=== PATIENT | female | born 2000 | race Caucasian/White ===

== ENCOUNTER 2021-10-09 12:04 | Emergency (ER) | payer BC, MEDICAID, SELFPAY ==
[2021-10-09 12:31] VITALS: BP 111/75; PULSE 75; RESP 16; TEMP 37.2; O2SAT 99; BMI 27.4
--- NOTE | 2021-10-09 12:39 | HMH.EDUTC ---
[place] Disposition Clinical Impression: Positive test Disposition: Home, Self-Care Condition on Discharge: Good Instructions: Common Discomforts and Bodily Changes During , Skin: Glowing, Stretching, Darkening, and More Additional Instructions: Follow up with OBGYN for further evaluation and examination Return if needed Straight to ER if any life threatening symptoms Referrals: Provider,MD Kaye [Primary Care Provider] - As needed Sedrick Butler MD [Staff Physician] - Aracelis Aaron MD [Staff Physician] - Time of Disposition: 13:22 Medical Decision Making - [place] Inquiry Pt receiving controlled substance: No [place] was queried for this patient: No Vital Signs: 10/09/21 12:31 Temperature 99.0 F Temperature Source Oral Pulse Rate [Right Radial] 75 Respiratory Rate 16 Blood Pressure [Right Arm] 111/75 Blood Pressure Mean [Right Arm] 87 Blood Pressure Source [Right Arm] Automatic Cuff Blood Pressure Position [Right Arm] Sitting 02 Sat by Pulse Oximetry 99 Oxygen Delivery Method Room Air - Lab Data Lab results reviewed: Yes: I reviewed the patient's lab results. Lab Results 10/09/21 12:21: [facility] Positive 10/09/21 12:38: Serum HCG, Qual Positive Orders (Tests/Meds): ORDERS Category Date Time Status HCG,Quantitative Stat Lab 10/09/21 12:38 Received [place] HPI - General Stated complaint: wants pregancy test Time Seen by Provider: 10/09/21 12:39 Mode of Arrival: Ambulatory Source of Information: Patient Limitations: No Limitations Description of Symptoms (Recalled from Triage Doc. by RN): pt requesting a test, states she has had a + positive home test HEENT Symptoms (Recalled from RN notes): No Resp Symptoms (Recalled from RN notes): No Skin Symptoms (Recalled from RN notes): No MS Symptoms (Recalled from RN notes): No Functional Status (Recalled from RN notes): n/a - History of Present Illness Provider Complaint: Patient states that she took a test at home and it was positive so she came here wanting to get a test and if the urine was positive to get a blood test to make sure Denies pain, denies cramping States that last period was last month - Related Data Allergies Allergy/AdvReac Type Severity Reaction Status Date / Time No Known Allergies Allergy Verified 10/09/21 12:59 - Worker's Comp Is this a Worker's Comp case?: No H History - Hepatitis A Screen Drug use history?: No High risk sexual behaviors?: No History of sexually transmitted infection?: No Currently employed?: No Childcare worker?: No Do you have indoor plumbing?: Yes Do you have electricity?: Yes Attestation statement:: This patient has been screened for Hepatitis A risk factors. I have reviewed the patient's past medical history: Yes ROS Obtained: Yes All systems reviewed & no additional complaints, Yes Systems reviewed as appropriate & no additional complaints - Constitutional Constitutional: Reports system reviewed and no additional complaints, except as docu, Denies body ache, Denies chills, Denies fever(s) - ENT Ears, Nose, Mouth, and Throat: Reports system reviewed and no additional complaints, except as docu - Cardiovascular Cardiovascular: Reports system reviewed and no additional complaints, except as docu - Respiratory Respiratory: Reports system reviewed and no additional complaints, except as docu - Gastrointestinal Gastrointestingal: Reports: system reviewed and no additional complaints, except as docu. Denies: abdominal pain - Genitourinary Female Genitourinary: Reports system reviewed and no additional complaints, except as docu, Reports absent period Physical Exam - General General appearance: alert, in no apparent distress - Respiratory Respiratory exam: Present: normal lung sounds bilaterally. Absent: respiratory distress - Cardiovascular Cardiovascular exam: Present: regular rat
[2021-10-09 12:40] LABS: UTC Pregnancy Test, Urine Positive (Negative)
[2021-10-09 13:13] LABS: HCG Qualitative, Serum Positive (Negative)
[2021-10-09 13:44] VITALS: BP 111/75; PULSE 75; RESP 16; TEMP 37.2; O2SAT 98
== END 2021-10-09 13:45 | disposition home or self-care (01) ==
PROVIDERS: Emergency Provider Nurse Practitioner
DX: Z32.01 Encounter for pregnancy test, result positive (principal)
CPT/HCPCS: 81025; 84702; 84703; 99212; G0463

== ENCOUNTER 2021-11-27 17:52 | Emergency (ER) | payer BC, MEDICAID, SELFPAY ==
[2021-11-27 17:54] VITALS: BP 126/74; PULSE 114; RESP 16; TEMP 36.9; O2SAT 98; BMI 25.8
--- NOTE | 2021-11-27 17:59 | HMH.EDGENADL ---
ED Disposition Clinical Impression: Chest congestion, Cough, Viral syndrome Disposition: Home, Self-Care Condition on Discharge: Good Additional Instructions: You have been evaluated for cough and chest congestion. This is likely related to a viral syndrome. Please continue to monitor your symptoms closely. Tylenol for aches and pains. Try home remedies like hot tea. 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 Return to the emergency department at once for any new or worsening symptoms, chest pain, difficulty breathing, other concerns. Referrals: Provider,Referral, [Primary Care Provider] - Forms: Work/School Release Time of Disposition: 19:39 - Critical Care Critical Care Time: No Attestation: On , the high probability of a clinically significant, sudden or life threatening deterioration of the following system(s) required my full and direct attention, intervention and personal management. The time I documented below is in addition to time spent performing reported procedures but includes the following listed in this critical care notation. Medical Decision Making - Medical Records Medical records reviewed: Yes: I reviewed the patient's medical records. - [place] Inquiry Pt receiving controlled substance: No Vital Signs: 11/27/21 17:54 11/27/21 18:15 11/27/21 19:00 Temperature 98.5 F Temperature Source Oral Pulse Rate 99 H 84 Pulse Rate [Right Radial] 114 H Respiratory Rate 16 Blood Pressure 126/74 112/58 L Blood Pressure [Right Arm] 126/74 Blood Pressure Mean [Right Arm] 91 Blood Pressure Source Blood Pressure Source [Right Arm] Automatic Cuff Blood Pressure Position [Right Arm] Sitting 02 Sat by Pulse Oximetry 98 98 99 Oxygen Delivery Method Room Air Room Air 11/27/21 19:15 11/27/21 19:45 11/27/21 19:55 Temperature 98.4 F Temperature Source Oral Pulse Rate 91 H 98 H 85 Pulse Rate [Right Radial] Respiratory Rate 17 Blood Pressure 126/57 L 129/77 129/77 Blood Pressure [Right Arm] Blood Pressure Mean [Right Arm] Blood Pressure Source Automatic Cuff Blood Pressure Source [Right Arm] Blood Pressure Position [Right Arm] 02 Sat by Pulse Oximetry 98 99 Oxygen Delivery Method Room Air Room Air - Lab Data Lab Results 11/27/21 18:25: SARS-CoV-2 (PCR) Not detected, Influenza A Untype (PCR) Not detected, Influenza Type B (PCR) Not detected Orders (Tests/Meds): ORDERS Category Date Time Status EKG Request [ECG Request by /Mello] Stat Y 11/27/21 19:11 Ordered - ECG Data Tracing #1 Sinus rhythm with ventricular rate of 87 bpm. QRS 83, QTc 389. No ST segment changes. No arrhythmia. Medical Decision Narrative: In summary this is a previously healthy female presenting to the emergency department with cough, chest congestion, sinus congestion. Patient clinically stable on arrival. Vital signs within normal limits. Will obtain rapid strep and COVID testing. States that her cough is quite severe. Concern for pneumonia. Chest x-ray obtained. EKG shows sinus rhythm. No evidence of pericarditis or myocarditis Chest x-ray shows no focal opacity or multifocal pneumonia COVID and influenza testing negative. On reassessment, patient says she is feeling much better. No chest pain or shortness of breath. Tachycardia has resolved. Patient counseled on conservative management of likely viral upper respiratory infection. Recommended Tylenol for aches and pains. Tea with honey. Recommended close PCP follow-up and [employer] follow-up. Given return precautions. Stable for discharge. General Adult HPI - General Stated complaint: 14 WK Preg cough congestion runny nose Time Seen by Provider: 11/27/21 18:00 Mode of Arrival: Ambulatory Source of Information: Patient Limitations: No Limitations - History of Present Illness HPI narrative: 21-year-old female presenting to the emergency department with
--- NOTE | 2021-11-27 18:04 | XR_ITS ---
PROCEDURE INFORMATION: Exam: XR Chest Exam date and time: 11/27/2021 6:11 PM Age: 21 years old Clinical indication: Patient HX: Patient is with cough and fever. Advised by Dr branch to shield patient and perform portable chest x-ray. ; Additional info: Cough, fever TECHNIQUE: Imaging protocol: XR of the chest. Views: 1 view. COMPARISON: No relevant prior studies available. FINDINGS: Lungs: Unremarkable. No consolidation. Pleural spaces: Unremarkable. No pleural effusion. No pneumothorax. Heart/Mediastinum: Unremarkable. No cardiomegaly. Bones/joints: Unremarkable. IMPRESSION: No acute findings.
[2021-11-27 18:15] VITALS: BP 126/74; PULSE 99; O2SAT 98
--- NOTE | 2021-11-27 18:28 | PC.NURSE ---
COVID swab sent to lab at this time
[2021-11-27 18:30] LABS: Coronavirus 19, PCR Not Detected (NotDetected); Influenza A, PCR Not Detected (NotDetected); Influenza B, PCR Not Detected (NotDetected)
[2021-11-27 19:00] VITALS: BP 112/58; PULSE 84; O2SAT 99
[2021-11-27 19:15] VITALS: BP 126/57; PULSE 91; O2SAT 98
--- NOTE | 2021-11-27 19:24 | ECG_ITS ---
APPROVED REPORT Exam: Resting ECG HR:87 bpm ECG Measurements Heart Rate 87 AXES SC 140 P 53 QRSd 83 QRS 83 QT 344 T 6 QTc 389 Conclusion SINUS RHYTHM NORMAL ECG UNCONFIRMED REPORT Electronically signed by : Pola Hutchison MD 11/28/2021 10:11:07
[2021-11-27 19:45] VITALS: BP 129/77; PULSE 98; O2SAT 99
[2021-11-27 19:55] VITALS: BP 129/77; PULSE 85; RESP 17; TEMP 36.9; O2SAT 99
== END 2021-11-27 19:58 | disposition home or self-care (01) ==
PROVIDERS: Emergency Provider Emergency Medicine
DX: J06.9 Acute upper respiratory infection, unspecified (principal); B34.9 Viral infection, unspecified; Z3A.14 14 weeks gestation of pregnancy
CPT/HCPCS: 71045; 93005; 99283; C9803; U0003; U0005

== ENCOUNTER → 2022-02-01 15:06 | Outpatient (CLI) | payer BC, MEDICAID, SELFPAY ==
[2022-02-01 16:22] LABS: Basophils # 0.2 K/mm3 (0-0.2); Basophils % 1.9 % (0.1-2.0); Eosinophils # 0.1 K/mm3 (0.0-0.4); Eosinophils % 0.5 % (0.1-12.0); Hematocrit 36.7 % (37.0-47.0); Hemoglobin 12.1 g/dL (12.2-16.2); Lymphocytes # 2.6 K/mm3 (0.7-4.5); Lymphocytes % 23.4 % (10-50); Mean Corpuscular Hemoglobin 31.3 pg (27.0-31.2); Mean Corpuscular Volume 94.7 fl (81-99); Monocytes # 0.6 K/mm3 (0.1-1.0); Neutrophils # 7.6 K/mm3 (1.8-7.8); Neutrophils % 69.2 % (37.0-80.0); Platelet Count 233 K/mm3 (142-424); Red Blood Count 3.88 M/mm3 (4.20-5.40); Red Cell Distribution Width 13.7 % (11.5-17.5)
[2022-02-03 11:02] LABS: HIV Screen 4th Generation wRfx Non Reactive (Non Reactive); Hepatitis B Surface Antigen Negative (Negative); Hepatitis C Antibody <0.1 s/co ratio (0.0-0.9); Rapid Plasma Reagin Ab Titer Non Reactive (NonRea<1:1)
== END ==
PROVIDERS: Visit Provider Obstetrics & Gynecology
DX: Z34.90 Encounter for supervision of normal pregnancy, unspecified, unspecified trimester (principal)
CPT/HCPCS: 36415; 85025; 86592; 86703; 86762; 86850; 87340; 87380; G0432

== ENCOUNTER → 2022-03-06 08:58 | Outpatient (CLI) | payer BC, MEDICAID, SELFPAY ==
[2022-03-06 09:49] LABS: Basophils # 0.1 K/mm3 (0-0.2); Basophils % 0.6 % (0.1-2.0); Eosinophils # 0.1 K/mm3 (0.0-0.4); Eosinophils % 0.9 % (0.1-12.0); Hematocrit 37.9 % (37.0-47.0); Hemoglobin 11.9 g/dL (12.2-16.2); Lymphocytes # 3.2 K/mm3 (0.7-4.5); Lymphocytes % 29.3 % (10-50); Mean Corpuscular HGB Conc 31.4 g/dL (31.8-35.4); Mean Corpuscular Hemoglobin 30.5 pg (27.0-31.2); Mean Platelet Volume 10.6 fl (7.4-10.4); Monocytes # 0.6 K/mm3 (0.1-1.0); Monocytes % 5.8 % (1.7-9.3); Neutrophils % 63.3 % (37.0-80.0); Platelet Count 199 K/mm3 (142-424); Red Blood Count 3.91 M/mm3 (4.20-5.40); Red Cell Distribution Width 13.5 % (11.5-17.5)
[2022-03-06 10:00] LABS: Glucose,Fasting 88 mg/dl (74-100)
[2022-03-06 13:15] LABS: Glucose 1 Hour 150 mg/dL (74-100)
== END ==
PROVIDERS: Visit Provider Obstetrics & Gynecology
DX: Z34.90 Encounter for supervision of normal pregnancy, unspecified, unspecified trimester (principal)
CPT/HCPCS: 36415; 82951; 85025

== ENCOUNTER → 2022-03-13 12:47 | Outpatient (CLI) | payer BC, MEDICAID, SELFPAY ==
--- NOTE | 2022-03-13 12:52 | US_ITS ---
FINAL REPORT CLINICAL HISTORY: 20 week anatomy scan FINDINGS: There is a single live intrauterine gestation. Presentation is breech. The cervix is closed and measures 4.4 cm. Placenta is posterior, high-grade 2. movement is noted. Heart rate is detected at 134 beats per minute. Three-vessel cord with satisfactory umbilical cord insertion. Four-chamber heart is noted. ABDOMEN: Both kidneys are unremarkable. Stomach is unremarkable. SPINE: No anomalies identified. AMNIOTIC FLUID: Appropriate amount. MEASUREMENTS: ULTRASOUND AGE: 29 weeks 2 days. GESTATION AGE: 29 weeks 4 days. ESTIMATED WEIGHT: 1352 g GROWTH PERCENTILE: 25 % BPD: 7.19 cm corresponding to 29 weeks 0 days. HC: 26.54 cm corresponding to 29 weeks 0 days. OFD: 9.54 cm corresponding to 29 weeks 1 day. AC: 24.94 cm corresponding to 29 weeks 2 days. FL: 5.59 cm corresponding to 29 weeks 3 days. CEREBELLUM: 3.35 cm corresponding to 30 weeks 5 days. HUMERUS: 5.07 cm corresponding to 29 weeks 5 days. HC/AC: 1.06 CI: 75% FL/BPD: 78% FL/AC: 22% IMPRESSION: Single living IUP with an ultrasound age of 29 weeks 2 days. Reviewed, Interpreted and Dictated by Roberto Carlos Chapman III, MD Transcribed by Melody Roth Authenticated and [facility]
== END ==
PROVIDERS: PCP Obstetrics & Gynecology; Visit Provider Obstetrics & Gynecology
DX: Z34.90 Encounter for supervision of normal pregnancy, unspecified, unspecified trimester (principal); Z3A.20 20 weeks gestation of pregnancy
CPT/HCPCS: 76811

== ENCOUNTER → 2022-03-21 06:11 | Outpatient (CLI) | payer BC, MEDICAID, SELFPAY ==
[2022-03-25 19:09] LABS: Neisseria gonorrhoeae, NAA Negative (Negative)
== END ==
PROVIDERS: Visit Provider Obstetrics & Gynecology
DX: Z34.90 Encounter for supervision of normal pregnancy, unspecified, unspecified trimester (principal)
CPT/HCPCS: 87491; 87591

== ENCOUNTER → 2022-04-12 10:39 | Outpatient (CLI) | payer MEDICAID, SELFPAY ==
--- NOTE | 2022-04-12 10:47 | US_ITS ---
FINAL REPORT CLINICAL HISTORY: sga FINDINGS: There is a single live intrauterine gestation. Presentation is cephalic. Placenta is fundal and grade 2. Cardiac activity is confirmed at 133 bpm. The fetus is active. Three-vessel cord with satisfactory umbilical cord insertion. Four-chamber heart is noted. brain and ventricles are unremarkable. Chest and diaphragm are unremarkable. ABDOMEN: Both kidneys are unremarkable. Stomach is unremarkable. SPINE: No anomalies identified. Both arms and legs noted. AMNIOTIC FLUID: Appropriate amount. MEASUREMENTS: ULTRASOUND AGE: 33 weeks 1 days. GESTATION AGE: 33 weeks 6 days. ESTIMATED WEIGHT: 2131 g GROWTH PERCENTILE: 24% BPD: 8.2 cm consistent with 33 weeks 0 days. OFD: 10.6 cm consistent with 33 weeks 5 days. HC: 29.8 cm consistent with 33 weeks 1 days. AC: 29.4 cm consistent with 33 weeks 3 days. FL: 6.3 cm consistent with 32 weeks 6 days. HC/AC: 1.01 CI: 77% FL/BPD: 77% FL/AC: 22% BPP: Breathin/2 Movement: 2/2 Tone: 2/2 Fluid volume: 2/2 BPP score: 8/8 S/D ratio: 2.58 IMPRESSION: Single living IUP with an ultrasound age of 33 weeks 1 day. Reviewed, Interpreted and Dictated by Roberto Carlos Chapman III, MD Transcribed by Benjamin Blair Authenticated and [facility]
== END ==
PROVIDERS: PCP Obstetrics & Gynecology; Visit Provider Obstetrics & Gynecology
DX: O36.5990 Maternal care for other known or suspected poor fetal growth, unspecified trimester, not applicable or unspecified (principal)
CPT/HCPCS: 76816; 76819; 76820

== ENCOUNTER 2022-04-20 22:02 | Outpatient (CLI) | payer MEDICAID, SELFPAY ==
[2022-04-20 22:16] VITALS: BMI 26.9
[2022-04-20 22:20] LABS: Microscopic, Urine URINE MICROSCOPIC (MICROSCOPIC)
[2022-04-20 22:30] LABS: Appearance,Urine CLEAR (Clear); Bilirubin,Urine Negative (Negative); Blood, Urine TRACE-I (Negative); Color,Urine YELLOW (Yellow); Glucose,Urine (UA) Negative (Negative); Ketones,Urine Negative (Negative); Leukocyte Esterase,Urine 2+ (Negative); Nitrate,Urine Negative (Negative); PH,Urine 6.5 (5.0-8.5); Protein,Urine Negative (Negative); Urobilinogen,Urine 0.2 EU/dl (0.2)
[2022-04-20 22:39] VITALS: BP 128/81; PULSE 98; RESP 17; TEMP 36.9; O2SAT 96; BMI 26.9
[2022-04-20 22:43] LABS: Barbiturates Screen,Urine Negative ng/ml (<200)
[2022-04-20 22:44] LABS: Amphetamine/Metha Screen,Urine Negative ng/ml (<1000); Benzodiazepines Screen,Urine Negative ng/ml (<200)
[2022-04-20 22:45] LABS: Cannabinoid Screen,Urine Negative ng/ml (<50)
[2022-04-20 22:46] LABS: Cocaine Screen,Urine Negative ng/ml (<300); Methadone Screen,Urine Negative ng/ml (<300)
[2022-04-20 22:47] LABS: Opiate Screen,Urine Negative ng/ml (<300)
[2022-04-20 22:48] LABS: Phencyclidine Screen,Urine Negative ng/ml (<25)
[2022-04-20 22:51] LABS: Fetal Membrane Rupture (Rapid) Negative (Negative)
[2022-04-20 22:59] LABS: Bacteria,Urine 1+ /lpf; RBC,Urine Occasional #/hpf (0-3); WBC,Urine 20-50 #/hpf (0-3)
== END 2022-04-21 00:30 | disposition home or self-care (01) ==
LOC: OBOUT 22:05 → OB 22:07
PROVIDERS: PCP Obstetrics & Gynecology; Visit Provider Nurse Practitioner Obstetrics & Gynecology
DX: O26.899 Other specified pregnancy related conditions, unspecified trimester (principal); Z3A.35 35 weeks gestation of pregnancy
CPT/HCPCS: 59025; 80305; 81001; 84112; 87086; 96365; 96367; G0463; J2505

== ENCOUNTER 2022-04-25 21:31 | Outpatient (CLI) | payer MEDICAID, SELFPAY ==
[2022-04-25 21:42] VITALS: BMI 27.6
[2022-04-25 22:04] LABS: Microscopic, Urine URINE MICROSCOPIC (MICROSCOPIC)
[2022-04-25 22:06] LABS: Appearance,Urine CLEAR (Clear); Bilirubin,Urine Negative (Negative); Blood, Urine TRACE-I (Negative); Color,Urine YELLOW (Yellow); Glucose,Urine (UA) Negative (Negative); Ketones,Urine Negative (Negative); Leukocyte Esterase,Urine 2+ (Negative); Nitrate,Urine Negative (Negative); Protein,Urine Negative (Negative); Specific Gravity, Urine <= 1.005 (1.005-1.030); Urobilinogen,Urine 0.2 EU/dl (0.2)
[2022-04-25 22:14] LABS: Fetal Membrane Rupture (Rapid) Negative (Negative)
[2022-04-25 22:22] LABS: Squamous Epithelial Cell,Urine 20-50 #/hpf (0-5); WBC,Urine 20-50 #/hpf (0-3)
[2022-04-25 22:23] LABS: Bacteria,Urine 3+ /lpf
[2022-04-25 22:25] LABS: Benzodiazepines Screen,Urine Negative ng/ml (<200)
[2022-04-25 22:26] LABS: Amphetamine/Metha Screen,Urine Negative ng/ml (<1000)
[2022-04-25 22:27] LABS: Barbiturates Screen,Urine Negative ng/ml (<200)
[2022-04-25 22:28] VITALS: BP 129/83; PULSE 91; RESP 18; TEMP 37; O2SAT 98; BMI 27.6
[2022-04-25 22:28] LABS: Cannabinoid Screen,Urine Negative ng/ml (<50); Methadone Screen,Urine Negative ng/ml (<300)
[2022-04-25 22:29] LABS: Cocaine Screen,Urine Negative ng/ml (<300)
[2022-04-25 22:30] LABS: Opiate Screen,Urine Negative ng/ml (<300)
[2022-04-25 22:31] LABS: Phencyclidine Screen,Urine Negative ng/ml (<25)
== END 2022-04-25 23:10 | disposition home or self-care (01) ==
LOC: OBOUT 21:32 → OB 21:33
PROVIDERS: Visit Provider Obstetrics & Gynecology
DX: O47.03 False labor before 37 completed weeks of gestation, third trimester (principal); Z3A.35 35 weeks gestation of pregnancy
CPT/HCPCS: 59025; 80305; 81001; 84112; 87086; 96365; G0463

== ENCOUNTER → 2022-04-30 16:54 | Outpatient (CLI) | payer MEDICAID, SELFPAY | PROVIDERS: Visit Provider Obstetrics & Gynecology | DX: Z34.90 Encounter for supervision of normal pregnancy, unspecified, unspecified trimester (principal) | CPT/HCPCS: 86403 ==

== ENCOUNTER 2022-05-02 21:42 | Inpatient (IN) | payer MEDICAID, SELFPAY ==
[2022-05-02 20:31] VITALS: BMI 27.8
[2022-05-02 20:55] LABS: Microscopic, Urine URINE MICROSCOPIC (MICROSCOPIC)
[2022-05-02 21:00] LABS: Appearance,Urine CLEAR (Clear); Bilirubin,Urine Negative (Negative); Blood, Urine 1+ (Negative); Color,Urine YELLOW (Yellow); Glucose,Urine (UA) Negative (Negative); Ketones,Urine Negative (Negative); Leukocyte Esterase,Urine 2+ (Negative); Nitrate,Urine Negative (Negative); PH,Urine 6.5 (5.0-8.5); Protein,Urine Negative (Negative); Specific Gravity, Urine <= 1.005 (1.005-1.030)
[2022-05-02 21:03] VITALS: BP 137/85; PULSE 111; RESP 17; TEMP 37.2; O2SAT 96; BMI 27.8
[2022-05-02 21:06] LABS: Fetal Membrane Rupture (Rapid) Negative (Negative)
[2022-05-02 21:11] LABS: Amphetamine/Metha Screen,Urine Negative ng/ml (<1000); Benzodiazepines Screen,Urine Negative ng/ml (<200)
[2022-05-02 21:12] LABS: Barbiturates Screen,Urine Negative ng/ml (<200)
[2022-05-02 21:13] LABS: Cannabinoid Screen,Urine Negative ng/ml (<50); Cocaine Screen,Urine Negative ng/ml (<300)
[2022-05-02 21:14] LABS: Methadone Screen,Urine Negative ng/ml (<300)
[2022-05-02 21:15] LABS: Opiate Screen,Urine Negative ng/ml (<300); Phencyclidine Screen,Urine Negative ng/ml (<25)
[2022-05-02 21:16] LABS: Bacteria,Urine 1+ /lpf; RBC,Urine Occasional #/hpf (0-3)
[2022-05-02 22:15] LABS: Coronavirus 19, PCR Not Detected (NotDetected); Influenza A, PCR Not Detected (NotDetected); Influenza B, PCR Not Detected (NotDetected)
[2022-05-02 22:18] LABS: Basophils # 0.1 K/mm3 (0-0.2); Basophils % 0.7 % (0.1-2.0); Eosinophils # 0.3 K/mm3 (0.0-0.4); Eosinophils % 1.7 % (0.1-12.0); Hematocrit 35.3 % (37.0-47.0); Hemoglobin 11.7 g/dL (12.2-16.2); Lymphocytes # 3.3 K/mm3 (0.7-4.5); Lymphocytes % 19.9 % (10-50); Mean Corpuscular HGB Conc 33.3 g/dL (31.8-35.4); Mean Corpuscular Hemoglobin 30.1 pg (27.0-31.2); Mean Corpuscular Volume 90.5 fl (81-99); Mean Platelet Volume 11.7 fl (7.4-10.4); Monocytes # 0.8 K/mm3 (0.1-1.0); Monocytes % 4.6 % (1.7-9.3); Neutrophils # 12.1 K/mm3 (1.8-7.8); Neutrophils % 73.2 % (37.0-80.0); Platelet Count 207 K/mm3 (142-424); Red Cell Distribution Width 13.5 % (11.5-17.5); White Blood Count 16.5 K/mm3 (4.8-10.8)
[2022-05-02 22:21] LABS: MANUAL DIFFERENTIAL MANUAL DIFFERENTIAL (MANUAL DIFF)
[2022-05-02 23:19] LABS: Lymphocytes % 34 % (10-50); Monocytes % 1 % (2-9); Neutrophils % 64 % (42-76); Total Cells Counted 100
[2022-05-02 23:20] LABS: Platelet Estimate Normal; RBC Morphology Normal
[2022-05-03] VITALS (19 sets, daily range): BP systolic 120–145; BP diastolic 60–100; PULSE 51–91; RESP 12–18; TEMP 36.3–36.9; O2SAT 98–100
--- NOTE | 2022-05-03 12:10 | P.PN_ITS ---
[facility] Social History Smoking Status: Current every day smoker alcohol intake: never substance use type: denies use current occupational status: unemployed Travel in the last 8 weeks: None [facility] Anesthesia Checklist Patient Identification Patient Identification: Arm Band Structural Data Admitted From: Home Planned Operative Procedure/s: C/S Consent for Planned Operative Procedure(s) Verified: Yes NPO Status Verified Time NPO: 00:00 Chart Verification Results Verified: CBC Additional verifications Patient : Yes Airway Assessment C-Spine Mobility Assessed: Yes TMJ Mobility Assessed: Yes Dentition: Good Dentition Neurological Assessment Level of Consciousness: Awake Hx Seizures: No Numbness or tingling in extremities: No Anesthesia Plan Anesthesia Risk discussed: Yes Anesthesia Plan: Verified ASA Class: II Anesthesia Type: Spinal
--- NOTE | 2022-05-03 13:46 | SUR.OPER ---
Notified Dr. Aaron of potential blood loss. 20g IV inserted to left forearm. No methergine per Dr. Aaron. Dr. Aaron states that uterus is firm and does not need methergine.
--- NOTE | 2022-05-03 13:59 | SUR.OPER ---
1343 2 units of PRBC's placed on hold per QBL protocol
--- NOTE | 2022-05-03 14:27 | P.PNANES_ITS ---
[facility] Anesthesia Record Part I Anesthesia Record I Intake, IV Amount: 2,000 Estimated blood loss (mL): 1,000 Urine output (mL): 300 Blood Pressure: 145/87 SaO2: 98 Pulse Rate: 71 Respiratory Rate: 14 Temperature: 97.4 F Patient is:: Awake and Stable Stable to PACU at:: 14:25
--- NOTE | 2022-05-03 15:23 | SUR.PHASEI ---
LATE ENTRY [address] Aaron at office. Dr. Aaron was busy at that time. Sarah took a message for Dr. Aaron that QBL was greater than 1500mL at that time and was asking if she requested any further interventions to be performed.
--- NOTE | 2022-05-03 15:38 | SUR.PHASEI ---
Detailed report called to Semaj Souza RN @ [phone]. Pt transported to floor by Semaj Brown RN and Marilee Centeno RN, left in care of Semaj Souza RN in stable condition. No call back received from Dr. Aaron's office @ this time.
--- NOTE | 2022-05-03 16:02 | EXP.HP ---
History of Present Illness *Admission Date: 05/02/22 *Reason for visit:: contractions *History of present illness: 21 yo care at [facility] [place] 05/25/22 Dating by 13 37 ultrasound labor with cervix changing from 3cm to 4cm She was admitted for observation with possible labor Fetus in breech position Progression on exam with amniotic membranes prolapsing through cervix, so she will be delivered immediately [facility] Social History Smoking Status: Current every day smoker alcohol intake: never substance use type: denies use current occupational status: unemployed Travel in the last 8 weeks: None Review of Systems Constitutional Constitutional: Reports system reviewed and no additional complaints, except as documented and Denies headache(s) ENT Ears, Nose, Mouth, and Throat: Denies headache(s) *Genitourinary Genitourinary: Denies abnormal vaginal bleeding Comments: + contractions *Neurologic Neurologic: Denies headache(s) and Denies other visual disturbances Meds Home Medications and Allergies Home Medications Medication Instructions Recorded Confirmed Type ferrous sulfate 325 mg PO DAILY Supplement 05/02/22 05/02/22 History vits no.126-ferrous fum 1 tab PO DAILY Supplement 05/02/22 05/02/22 History 28 mg iron-folic acid 800 mcg tablet (Classic ) New Prescriptions to Start Prescriptions: Allergies Allergy/AdvReac Type Severity Reaction Status Date / Time No Known Allergies Allergy Verified 04/30/22 11:06 Exam Data for Last 24 hours Vital signs and Labs for Last 24 Hours: Temp Pulse Resp BP Pulse Ox 97.6 F 69 16 140/83 99 05/03/22 14:55 05/03/22 14:55 05/03/22 14:55 05/03/22 14:55 05/03/22 14:55 Laboratory Results - last 24 hr 05/02/22 20:44: Urine Color Yellow, Urine Appearance Clear, Urine pH 6.5, Ur Specific Belle <= 1.005, Urine Protein Negative, Urine Glucose (UA) Negative, Urine Ketones Negative, Urine Blood 1+, Urine Nitrate Negative, Urine Bilirubin Negative, Urine Urobilinogen 1.0, Ur Leukocyte Esterase 2+ A, Urine RBC Occasional, Urine WBC 5-10, Ur Squamous Epith Cells 5-10, Urine Bacteria 1+ 05/02/22 20:44: Membrane Rupture Negative 05/02/22 20:44: Urine Opiates Screen Negative, Urine Methadone Screen Negative, Ur Barbituates Screen Negative, Ur Phencyclidine Scrn Negative, Ur Amphetamines Screen Negative, U Benzodiazepines Scrn Negative, Urine Cocaine Screen Negative, U Marijuana (THC) Screen Negative 05/02/22 22:00: WBC 16.5 H, RBC 3.90 L, Hgb 11.7 L, Hct 35.3 L, MCV 90.5, MCH 30.1, MCHC 33.3, RDW 13.5, Plt Count 207, MPV 11.7 H, Neut % (Auto) 73.2, Lymph % (Auto) 19.9, [place] % (Auto) 4.6, Eos % (Auto) 1.7, Baso % (Auto) 0.7, Neut # (Auto) 12.1 H, Lymph # (Auto) 3.3, [place] # (Auto) 0.8, Eos # (Auto) 0.3, Baso # (Auto) 0.1, Total Counted 100, Neutrophils % (Manual) 64, Lymphocytes % (Manual) 34, Monocytes % (Manual) 1 L, Basophils % (Manual) 1.0, Platelet Estimate Normal, RBC Morphology Normal 05/02/22 22:00: Blood Type O Positive, Antibody Screen Negative, Crossmatch (AHG) See Detail 05/02/22 22:06: SARS-CoV-2 (PCR) Not detected, Influenza A Untype (PCR) Not detected, Influenza Type B (PCR) Not detected I & O for Last 24 hours: Intake & Output 05/01/22 05/02/22 05/03/22 05/04/22 11:59 11:59 11:59 11:59 Intake Total 1999 Balance 1999 Weight 152 lb Constitutional Constitutional: no acute distress *Routine HEENT Exam Head: Present normocephalic Eye: Absent conjunctival icterus or scleral injection ENT: Present mucous membranes moist *Routine Neck Exam Neck: Present supple *Routine Respiratory Exam Respiratory: Present CTA bilaterally; Absent respiratory distress *Routine Cardiovascular Exam Cardiovascular: Present RRR *Routine Abdominal Exam Abdominal: Present soft; Absent tenderness or distended *Routine Rectal Exam Rectal:
[2022-05-03 16:31] LABS: Microscopic,Cath URINE MICROSCOPIC (MICROSCOPIC)
[2022-05-03 16:36] LABS: Appearance,Urine/Cath CLEAR (Clear); Bilirubin,Cath Negative (Negative); Blood, Urine/Cath TRACE-I (Negative); Color,Urine/Cath YELLOW (Yellow); Glucose,Urine/Cath (UA) Negative (Negative); Ketones,Urine/Cath Negative (Negative); Leukocyte Esterase,Cath Negative (Negative); Nitrate,Cath Negative (Negative); PH,Urine/Cath 7.5 (5.0-8.5); Protein,Urine/Cath Negative (Negative); Urobilinogen,Cath 0.2 EU/dl (0.2)
--- NOTE | 2022-05-03 16:41 | EXP.OP.NOTE ---
Date of procedure: 05/03/22 Pre-op Diagnosis:: 1. 36 6/7 weeks 2. Active labor 3. Breech presentation Post-op Diagnosis:: SAme Procedure performed:: Primary Low Transverse C Section Surgeon:: Aracelis Aaron MD FINANCE EFFECTIVENESS MANAGER:: Alessandra Howardguero Anesthesia: MAC and spinal Estimated blood loss (mL): 1,000 Operative findings:: Vigorous male , incomplete breech presentation apgars 9 (1 min) and 10 (5 min) Grossly normal appearing uterus, fallopian tubes and ovaries Operative note:: The patient was taken to the OR and spinal was administered without difficulty. She was prepped and draped in normal sterile fashion. A pfannenstiel skin incision was made with the scalpel and carried down to the fascia. Spinal anesthesia was not working sufficiently and MAC was used. The fascia was incised in the midline and sharply dissected off the rectus muscles. The muscles were in the midline and the peritoneum was entered sharply and extended bluntly. The Michael-O self retaining retractor was placed in the abdomen and a bladder flap was created. The uterus was incised in the lower uterine segment in a transverse fashion and extended bluntly. Amniotomy was performed and clear fluid noted. The breech was delivered in controlled fashion, medially rotating the upper extremities and with gentle downward traction on maxilla. The infant was vigorous at and handed to awaiting ad operations associate and nursing staff for evaluation after cord was clamped and cut. Cord blood was collected and a cord segment was preserved. The placenta was manually extracted and noted to be intact. The uterus was repaired with 0-vicryl in a running/locked fashion. Brisk bleeding was noted from the uterus and a second layer was placed for hemostasis. The peritoneum was closed with 2-0 vicryl in a running fashion. The fascia was closed with #1 vicryl in a running fashion. The subcutaneous fat was closed with 2-0 vicryl in an interrupted fashion. The skin was closed with bartolome. The patient tolerated the procedure well. Sponge, lap, needle and instrument counts were correct x 2. She was taken to PACU awake and in stable condition. Condition: stable Disposition: PACU Specimens:: Placenta, cord blood Complications:: None
[2022-05-03 17:58] LABS: RBC,Urine/Cath Occasional # /hpf (0-3)
[2022-05-04 03:50] VITALS: BP 139/74; PULSE 86; RESP 16; TEMP 36.9; O2SAT 97
[2022-05-04 05:32] LABS: Hematocrit 25.4 % (37.0-47.0); Hemoglobin 8.8 g/dL (12.2-16.2)
[2022-05-04 08:25] VITALS: BP 122/70; PULSE 74; RESP 16; TEMP 36.9; O2SAT 97
--- NOTE | 2022-05-04 13:18 | PC.NURSE ---
Addendum entered by Mikki Souza RN 05/05/22 12:47: Attempted to call for update on case status, no answer. Original Note: Per Care management recommendation, nurse contacted [place] central intake. report given to central head loft worker of infant named Cem Bush III, will be residing at [address] [place] [address] in [facility], with mother Nohemy Schneider. Nohemy had x1 positive urine drug screen on 02/14/2022, for [place], no other positive substances. She also had late care starting on 02/01/2022, at 23 weeks and 6 days of . Upon admission to hospital for delivery, Nohemy Schneider had a negative urine drug screen. Cem Bush III urine drug screen was negative upon admission. Web ID # received of [id number] nurse was instructed to call [facility] CPS for update in status.
--- NOTE | 2022-05-04 13:58 | EXP.ACUTE.PN ---
Subjective *Date: 05/04/22 *Time: 13:58 Interval history: POD #1 primary LTCS for breech presentation with active labor () She is doing well and has no unusual complaints She is tolerating a regular diet She is ambulating without difficulty but has not voided yet Catheter removal was delayed per anesthesia request after difficulty with spinal placement She is asymptomatic with boaoe-aw-iavshky anemia She will be given IV iron infusion prior to discharge Infant is doing well after delivery at 36 6/7 Admission Hgb was 11.7 and is now 8.8, which is consistent with intra-operative blood loss Medical Exam Vital signs and Labs for Last 24 Hours: Temp Pulse Resp BP Pulse Ox 98.4 F 74 16 122/70 97 05/04/22 08:25 05/04/22 08:25 05/04/22 08:25 05/04/22 08:25 05/04/22 08:25 Laboratory Results - last 24 hr 05/02/22 22:00: Blood Type O Positive, Antibody Screen Negative, Crossmatch (AHG) See Detail 05/03/22 12:46: Urine Color Yellow, Urine Appearance Clear, Urine pH 7.5, Ur Specific [place] 1.010, Urine Protein Negative, Urine Glucose (UA) Negative, Urine Ketones Negative, Urine Blood Trace-i, Urine Nitrate Negative, Urine Bilirubin Negative, Urine Urobilinogen 0.2, Ur Leukocyte Esterase Negative, Urine RBC Occasional, Urine WBC None, Ur Squamous Epith Cells None, Urine Bacteria None 05/04/22 05:25: Hgb 8.8 L, Hct 25.4 L I & O for Labs for Last 24 Hours: Intake & Output 05/02/22 05/03/22 05/04/22 05/05/22 11:59 11:59 11:59 11:59 Intake Total 1999 Balance 1999 Weight 152 lb Microbiology Reports for the Last 24 Hours: Microbiology 05/02/22 20:44 Urine,Clean Catch Urine Culture - Preliminary Comment:: No acute distress Comment:: breathing unlabored Comment:: Regular rate, normal peripheral pulses Comments:: abdomen soft, non-distended Mild tenderness Comment:: uterine fundus firm below umbilicus Comment:: 1+ edema bilateral lower extremities Comment:: Incision dry/intact Assessment and Plan *Assessment and plan (1) 36 weeks gestation of : Status: Acute Category: Medical Code(s): Z3A.36 - 36 weeks gestation of (2) labor in third trimester: Status: Acute Category: Medical Code(s): O60.03 - labor without delivery, third trimester (3) Breech presentation: Status: Acute Category: Medical Code(s): O32.1XX0 - Maternal care for breech presentation, not applicable or unspecified (4) Delivered by section: Status: Acute Category: Medical Code(s): Z38.01 - Single liveborn , delivered by (5) Anemia affecting : Status: Acute Category: Medical Code(s): O99.019 - Anemia complicating , unspecified trimester (6) Tobacco smoking complicating : Status: Acute Category: Medical Code(s): O99.330 - Smoking (tobacco) complicating , unspecified trimester (7) Acute blood loss anemia: Status: Acute Category: Medical Code(s): D62 - Acute posthemorrhagic anemia Plan Routine postop care Advance care as tolerated IV iron infusion followed by po ferrous sulfate Anticipate discharge home on POD #3
--- NOTE | 2022-05-05 11:36 | EXP.DC.SUM ---
General Admission date:: 05/02/22 Discharge date: 05/05/22 HPI HPI HPI: 21 yo care at [facility], [place] 05/25/22 Dating by 13 10/15 ultrasound labor with cervix changing from 3cm to 4cm She was admitted for observation with possible labor Fetus in breech position Progression on exam with amniotic membranes prolapsing through cervix, so she will be delivered immediately Hospital Course Hospital Course Hospital Course: Postop course uneventful She is requesting discharge on POD #2 She is in stable condition She is tolerating a regular diet, ambulating and voiding without difficulty Lochia is appropriate and she is asymptomatic with anemia She received IV iron infusion and will continue po ferrous sulfate after discharge She will return in 2 days for staple removal Exam Data for Last 24 hours Vital signs and Labs for Last 24 Hours: Temp Pulse Resp BP Pulse Ox 98.4 F 74 16 122/70 97 05/04/22 08:25 05/04/22 08:25 05/04/22 08:25 05/04/22 08:25 05/04/22 08:25 I & O for Last 24 hours: Intake & Output 05/02/22 05/03/22 05/04/22 05/05/22 11:59 11:59 11:59 11:59 Intake Total 1999 Balance 1999 Weight 152 lb Microbiology Reports for the Last 24 Hours: Microbiology 05/02/22 20:44 Urine,Clean Catch Urine Culture - Final Multiple organisms, suggests contamination. Constitutional Constitutional: no acute distress *Routine HEENT Exam Head: Present normocephalic Eye: Absent conjunctival icterus or scleral injection ENT: Present mucous membranes moist *Routine Neck Exam Neck: Present supple *Routine Respiratory Exam Respiratory: Present CTA bilaterally *Routine Cardiovascular Exam Cardiovascular: Present RRR *Routine Abdominal Exam Abdominal: Present soft; Absent tenderness or distended *Routine Rectal Exam Patient deferred: visual exam and digital exam *Routine Exam Patient deferred: external exam Comments: Fundus firm below umbilicus *Routine Extremities Exam Extremities: Present edema *Routine Skin Exam Skin: Present intact and dry Comments: Incision intact without erythema or purulent drainage *Routine Neurological Exam Neurological: Present alert and oriented X3 Routine Psychiatric Exam Psychiatric: Present normal affect; Absent depressed DS: Diagnosis Discharge Diagnosis (1) 36 weeks gestation of : Status: Acute (2) labor in third trimester: Status: Acute (3) Breech presentation: Status: Acute (4) Delivered by section: Status: Acute (5) Anemia affecting : Status: Acute (6) Tobacco smoking complicating : Status: Acute (7) Acute blood loss anemia: Status: Acute Meds Home Medications and Allergies Home Medications Medication Instructions Recorded Confirmed Type ferrous sulfate 325 mg PO DAILY Supplement 05/02/22 05/02/22 History vits no.126-ferrous fum 1 tab PO DAILY Supplement 05/02/22 05/02/22 History 28 mg iron-folic acid 800 mcg tablet (Classic ) ibuprofen 400 mg tablet 800 mg PO Q6HP PRN Mild To 05/05/22 Rx Moderate Pain #40 tabs oxycodone 5 mg tablet 5 mg PO Q6HP PRN Moderate Pain #24 05/05/22 Rx tabs New Prescriptions to Start Prescriptions: Aracelis Delong oxycodone Aracelis Aaron Allergies Allergy/AdvReac Type Severity Reaction Status Date / Time No Known Allergies Allergy Verified 04/30/22 11:06 Discharge Plan Disposition Patient Disposition: Home, Self-Care Discharge Order Discharge Orders: Discharge Order (Routine); Ordered 05/05/22 Ordered By: Aracelis Aaron Follow up Plan Follow up with: Aracelis Aaron MD [Primary Care Provider] - Enter time for follow up (call the office friday to setup an appointment for ) Prescriptions/Medication Reconciliation: New ibuprofen 400 m
--- NOTE | 2022-05-06 07:13 | P.PNANES_ITS ---
[facility] Anesthesia Record Part II Anesthesia Record Part II Discharge Time: 14:55 Destination: Surgical Day Care (OP Surgery) PACU nurse assessment reviewed?: Yes Patient Condition:: Good Anesthesia Complications:: None Swallowing reflex intact?: Yes Cyanosis?: No Blood Pressure: 140/83 Pulse Rate: 69 Temperature: 97.6 F Mental Status: Alert & Oriented Pain level:: 0 Nausea and/or vomitting:: None Intake, IV Amount: 0
[2022-05-06 07:15] VITALS: BP 140/83; PULSE 69; TEMP 36.4
--- NOTE | 2022-05-06 14:14 | CARE MANAGER ---
Per cabinet of health and family services, Web ID [id number], the report submitted does not meet acceptance criteria for further asessment and will not be assigned to a manager social media. OB notified that case was not picked up by child protective services. Baby is planned for discharge today.
== END 2022-05-05 14:10 | disposition home or self-care (01) | DRG 786 ==
LOC: OBOUT 21:43 → OB 21:48
PROVIDERS: Admitting Provider Obstetrics & Gynecology; PCP Obstetrics & Gynecology; Visit Provider Obstetrics & Gynecology
PROC: 10D00Z1 Extraction of Products of Conception, Low, Open Approach (ICD-10-PCS; CPT 59514; principal; 2022-05-03 12:15)
DX: O32.1XX0 Maternal care for breech presentation, not applicable or unspecified (principal); O60.23X0 Term delivery with preterm labor, third trimester, not applicable or unspecified; Z37.0 Single live birth; Z3A.36 36 weeks gestation of pregnancy; O99.019 Anemia complicating pregnancy, unspecified trimester; Z84.82 Family history of sudden infant death syndrome; F17.210 Nicotine dependence, cigarettes, uncomplicated; O99.330 Smoking (tobacco) complicating pregnancy, unspecified trimester; D64.9 Anemia, unspecified
CPT/HCPCS: 59514; 36415; 59025; 80305; 81001; 84112; 85007; 85014; 85018; 85025; 86403; 86850; 87086; 94761; C9290; C9803; G0283; J0595; J1756; U0003; U0005

== ENCOUNTER 2024-01-29 20:25 | Inpatient (IN) | payer SELFPAY ==
[2024-01-29 18:43] VITALS: BMI 27.8
[2024-01-29 18:44] VITALS: BP 136/75; PULSE 94; RESP 18; TEMP 37.3; O2SAT 97; BMI 27.8
[2024-01-29 18:57] LABS: Microscopic, Urine URINE MICROSCOPIC (MICROSCOPIC)
[2024-01-29] MEDS: LACTATED RINGERS 1000ML 1,000 ML 999 ML IV (18:59)
[2024-01-29 19:01] LABS: Bilirubin,Urine Negative (Negative); Blood, Urine Negative (Negative); Color,Urine YELLOW (Yellow); Glucose,Urine (UA) Negative (Negative); Ketones,Urine Negative (Negative); Leukocyte Esterase,Urine 2+ (Negative); Nitrate,Urine Negative (Negative); PH,Urine 6.5 (5.0-8.5); Protein,Urine Negative (Negative)
[2024-01-29 19:02] LABS: Appearance,Urine Slightly Cloudy (Clear)
[2024-01-29 19:12] LABS: Barbiturates Screen,Urine Negative ng/ml (<200); Benzodiazepines Screen,Urine Negative ng/ml (<200); Squamous Epithelial Cell,Urine Occasional #/hpf (0-5)
[2024-01-29 19:13] LABS: Amphetamine/Metha Screen,Urine Negative ng/ml (<1000)
[2024-01-29 19:14] LABS: Cannabinoid Screen,Urine Negative ng/ml (<50); Cocaine Screen,Urine Negative ng/ml (<300)
[2024-01-29 19:15] LABS: Methadone Screen,Urine Negative ng/ml (<300); Opiate Screen,Urine Negative ng/ml (<300)
[2024-01-29 19:16] LABS: Phencyclidine Screen,Urine Negative ng/ml (<25)
--- NOTE | 2024-01-29 19:40 | EXP.OB.APHP ---
OB - H&P: HPI Antepartum History of Present Illness Chief complaint: Lower abdominal pain, back pain History of present illness: Ms Marychuy Schneider is a 23 yo at 37w6d who presents to [facility] Labor and Delivery with complaint of lower abdominal pain and back pain. She is an unattached patient. She has been receiving care at [facility]. She recently moved to [facility] from [place]. She did not have enough gas money to get to [place]. She denies GDM and GHTN with this but states she had GHTN with her first . History of in 2018 and 2021. She then had a primary April 2023 secondary to active labor at 36w6 and breech presentation. She has two living children. She lost a baby to SIDS at 4 months of age. She denies past medical history. She states she would really like to deliver vaginally if possible. History of Present care: other (received care at [facility], awaiting records) Obstetrical complications: previous Labs Blood type: O (+) positive Rubella: unknown RPR/VDRL: unknown GBS status: unknown HBsAG: unknown [facility] Disclaimer: The information contained in this section may have been updated after the patient was seen, as this information can be updated by other users. Medical History (Updated 01/29/24 @ 19:56 by Jennifer Tamayo DO) 37 weeks gestation of Irregular contractions Delivered by section Surgical History (Updated 01/29/24 @ 19:56 by Jennifer Tamayo DO) History of Social History Smoking Status: Current every day smoker alcohol intake: never substance use type: denies use current occupational status: unemployed Travel in the last 8 weeks: None Review of Systems Review of Systems Review of systems:: pertinent systems reviewed and negative unless documented below *Gastrointestinal Gastrointestinal: Reports abdominal pain *Musculoskeletal Musculoskeletal: Reports back pain Meds Home Medications and Allergies Home Medications Medication Instructions Recorded Confirmed Type ferrous sulfate 325 mg PO DAILY Supplement 05/02/22 05/02/22 History vits no.126-ferrous fum 1 tab PO DAILY Supplement 05/02/22 05/02/22 History 28 mg iron-folic acid 800 mcg tablet (Classic ) ibuprofen 400 mg tablet 800 mg (2 x 400 mg) PO Q6HP PRN 05/05/22 Rx Mild To Moderate Pain #40 tabs oxycodone 5 mg tablet 5 mg PO Q6HP PRN Moderate Pain #24 05/05/22 Rx tabs New Prescriptions to Start Prescriptions: Allergies Allergy/AdvReac Type Severity Reaction Status Date / Time No Known Allergies Allergy Verified 04/30/22 11:06 OB - H&P: Exam Physical Exam Vital signs: Temp Pulse Resp BP Pulse Ox O2 Del Method 99.2 F 94 H 18 136/75 97 Room Air 01/29/24 18:44 01/29/24 18:44 01/29/24 18:44 01/29/24 18:44 01/29/24 18:44 01/29/24 18:44 Constitutional no acute distress and cooperative Routine HEENT Exam Head: Present normocephalic and atraumatic Eye: Absent conjunctivae pink ENT: Present mucous membranes moist Routine Neck Exam Present full ROM Routine Respiratory Exam Present CTA bilaterally and normal respiratory effort Routine Cardiovascular Exam Present RRR Routine Abdominal Exam Present soft (Gravid); Absent tenderness Routine Rectal Exam Patient deferred: visual exam Routine Exam External: Present normal urethra appearance; Absent erythema, tenderness, lesions or lacerations Routine Extremities Exam Present full ROM; Absent edema or calf tenderness Routine Neurological Exam Present alert, moving all extremities and normal speech Routine Psychiatric Exam Present normal affect and cooperative Detailed Labor and Delivery Exam Dilation (cm): 3 Effacement (%): 60 Cervix position: mid station: -2 Consistency: soft Membranes: intact Baseline heart rate: 120 monitor accelerations: Present monitor decelerations: None assisted variability: Moderate (11-25) Comments: [place]: irritability with occasional contraction OB - Results Labs Labs: Urine 01/29/24 Range/Units 18:15 Urine Color Yellow (Yellow) Urine Appearance Slightly cloudy (Clear) Urine pH 6.5 (5.0-8.5) Ur Specific [place] 1.010 (1.005-1.030) Urine Protein Negative (Negative) Urine Glucose (UA) Negative (Negative) OB - A/P Antepartum (1) 37 weeks gestation of : Status: Acute (2) Irregular contractions: Status: Acute (3) History of : Status: Acute x 1 Additional Plan Plan: expectant management Additional Information:: Admit to [facility] for observation SVE: /-2 NST reactive, irritability with occasional contraction on toco Discussed vs repeat . She desires to try for . Will continue to monitor baby and mom. If she progresses on her own will continue to watch closely and attempt . (Hx of 2 vaginal deliveries in 2018 and 2019 followed by in 2021 secondary to breech presentation) Discussed possibility of home tomorrow if cervix remains unchanged She agrees with plan Requested records from [facility]
[2024-01-29] MEDS: LACTATED RINGERS 1000ML 1,000 ML 80 ML IV (20:48)
[2024-01-29 20:59] LABS: Basophils # 0.1 K/mm3 (0-0.2); Basophils % 0.7 % (0.1-2.0); Eosinophils # 0.2 K/mm3 (0.0-0.4); Eosinophils % 1.8 % (0.1-12.0); Hematocrit 32.9 % (37.0-47.0); Hemoglobin 10.9 g/dL (12.2-16.2); Lymphocytes # 2.9 K/mm3 (0.7-4.5); Lymphocytes % 23.7 % (10-50); Mean Corpuscular HGB Conc 33.1 g/dL (31.8-35.4); Mean Corpuscular Hemoglobin 29.3 pg (27.0-31.2); Mean Corpuscular Volume 88.4 fl (81-99); Mean Platelet Volume 9.4 fl (7.4-10.4); Monocytes # 0.5 K/mm3 (0.1-1.0); Monocytes % 4.1 % (1.7-9.3); Neutrophils # 8.5 K/mm3 (1.8-7.8); Neutrophils % 69.7 % (37.0-80.0); Platelet Count 233 K/mm3 (142-424); Red Blood Count 3.72 M/mm3 (4.20-5.40); White Blood Count 12.2 K/mm3 (4.8-10.8)
[2024-01-30] MEDS: LACTATED RINGERS 1000ML 1,000 ML 80 ML IV (07:19)
[2024-01-30 07:21] VITALS: BP 110/64; PULSE 69; RESP 18; TEMP 36.7; O2SAT 98
--- NOTE | 2024-01-30 11:42 | P.PN_ITS ---
Subjective *Date: 01/30/24 *Time: 16:09 Interval history: Nohemy is a 23 yo who is being followed after presenting to L&D with painful contractions. She made progress from /-2 on arrival to /-2 this morning. When i saw the patient this morning she was not having any contractions. She states her primary OB did not discuss the risks of with her. Her BEAR is 02/14/24 per patient making her 37w6d today. Exam Data for Last 24 hours Vital signs and Labs for Last 24 Hours: Temp Pulse Resp BP Pulse Ox O2 Del Method 98.1 F 69 18 110/64 98 Room Air 01/30/24 07:21 01/30/24 07:21 01/30/24 07:21 01/30/24 07:21 01/30/24 07:21 01/30/24 07:21 Laboratory Results - last 24 hr 01/29/24 18:15: Urine Color Yellow, Urine Appearance Slightly cloudy, Urine pH 6.5, Ur Specific [place] 1.010, Urine Protein Negative, Urine Glucose (UA) Negative, Urine Ketones Negative, Urine Blood Negative, Urine Nitrate Negative, Urine Bilirubin Negative, Urine Urobilinogen 1.0, Ur Leukocyte Esterase 2+ A, Urine RBC None, Urine WBC 3-5, Ur Squamous Epith Cells Occasional, Urine Bacteria None, Urine Opiates Screen Negative, Urine Methadone Screen Negative, Ur Barbituates Screen Negative, Ur Phencyclidine Scrn Negative, Ur Amphetamines Screen Negative, U Benzodiazepines Scrn Negative, Urine Cocaine Screen Negative, U Marijuana (THC) Screen Negative 01/29/24 20:43: WBC 12.2 H, RBC 3.72 L, Hgb 10.9 L, Hct 32.9 L, MCV 88.4, MCH 29.3, MCHC 33.1, RDW 14.0, Plt Count 233, MPV 9.4, Neut % (Auto) 69.7, Lymph % (Auto) 23.7, [place] % (Auto) 4.1, Eos % (Auto) 1.8, Baso % (Auto) 0.7, Neut # (Auto) 8.5 H, Lymph # (Auto) 2.9, [place] # (Auto) 0.5, Eos # (Auto) 0.2, Baso # (Auto) 0.1, Blood Type O Positive, Antibody Screen Negative Temp Pulse Resp BP Pulse Ox 98.4 F 74 16 122/70 97 05/04/22 08:25 05/04/22 08:25 05/04/22 08:25 05/04/22 08:25 05/04/22 08:25 I & O for Last 24 hours: Intake & Output 01/27/24 01/28/24 01/29/24 01/30/24 23:59 23:59 23:59 23:59 Weight 152 lb Intake & Output 05/02/22 05/03/22 05/04/22 05/05/22 11:59 11:59 11:59 11:59 Intake Total 1999 Balance 1999 Weight 152 lb Microbiology Reports for the Last 24 Hours: Microbiology 05/02/22 20:44 Urine,Clean Catch Urine Culture - Final Multiple organisms, suggests contamination. Constitutional Constitutional: no acute distress *Routine HEENT Exam Head: Present normocephalic Eye: Absent conjunctival icterus or scleral injection ENT: Present mucous membranes moist *Routine Neck Exam Neck: Present supple *Routine Respiratory Exam Respiratory: Present CTA bilaterally *Routine Cardiovascular Exam Cardiovascular: Present RRR *Routine Abdominal Exam Abdominal: Present soft; Absent tenderness or distended *Routine Rectal Exam Patient deferred: visual exam and digital exam *Routine Exam Patient deferred: external exam Comments: Fundus firm below umbilicus *Routine Extremities Exam Extremities: Present edema *Routine Skin Exam Skin: Present intact and dry Comments: Incision intact without erythema or purulent drainage *Routine Neurological Exam Neurological: Present alert and oriented X3 Routine Psychiatric Exam Psychiatric: Present normal affect; Absent depressed Assessment and Plan *Assessment and plan (1) History of : Status: Acute Category: Surgical Code(s): Z98.891 - History of uterine scar from previous surgery (2) 37 weeks gestation of : Status: Acute Category: Medical Code(s): Z3A.37 - 37 weeks gestation of (3) Irregular contractions: Status: Acute Category: Medical Code(s): O47.9 - False labor, unspecified (4) Tobacco smoking complicating : Status: Acute Category: Medical Code(s): O99.330 - Smoking (tobacco) complicating , unspecified trimester (5) Family history of SIDS (sudden syndrome): Problem Comment: G1 , at 4 months Status: Acute Category: Medical Code(s): Z84.82 - Family history of sudden infant syndrome (6) Desires (vaginal after ) trial: Status: Acute Category: Surgical Code(s): O34.219 - Maternal care for unspecified type scar from previous delivery Plan I spent greater than 30 minutes extensively discussing the risk and benefits of a trial of labor after delivery. I discussed that without Pitocin her risk of uterine rupture was 0.5 to 1%. I discussed that if uterine rupture were to occur it could result in , hypoxic ischemic encephalopathy, cerebral palsy, maternal hemorrhage, and maternal . I discussed that we would follow her closely for uterine rupture with signs of heart rate abnormalities or loss of station. I discussed that if uterine rupture were to be suspected it would require a very emergent delivery where she could possibly be put to sleep and her support person would not be able to be in the room at that time. At this time we will continue to monitor her closely as she is only 37 completed weeks gestation. If she progresses on her own to active labor, 6 cm the patient is agreeable to an amniotomy for labor augmentation. We discussed the risk and benefits of Pitocin and the patient is agreeable to Pitocin augmentation if deemed necessary. At this time it appears that her uterine contractions have stopped and she remains in latent labor. Given the early term gestational age we will continue to monitor this closely and patient. When I reexamined the patient at lunchtime she was resting comfortably in bed, asleep. I discussed the game plan with her significant other that we would continue to monitor until the patient progressed past 6 cm independently. I did discuss the risk of a NICU stay with early term delivery. The partner voiced understanding.
[2024-01-31 08:13] VITALS: BP 120/57; PULSE 58; RESP 15; TEMP 36.6; O2SAT 98
--- NOTE | 2024-01-31 11:42 | EXP.DC.SUM ---
General Admission date:: 01/29/24 Discharge date: 01/31/24 HPI HPI HPI: Ms Marychuy Schneider is a 23 yo at 37w6d who presents to [facility] Labor and Delivery with complaint of lower abdominal pain and back pain. She is an unattached patient. She has been receiving care at [place]. She recently moved to [facility] from [place]. She did not have enough gas money to get to [place]. She denies GDM and GHTN with this but states she had GHTN with her first . History of in 2018 and 2021. She then had a primary April 2023 secondary to active labor at 36w6 and breech presentation. She has two living children. She lost a baby to SIDS at 4 months of age. She denies past medical history. She states she would really like to deliver vaginally if possible. History of Present care: other (received care at [facility], awaiting records) Obstetrical complications: previous Labs Blood type: O (+) positive Rubella: unknown RPR/VDRL: unknown GBS status: unknown HBsAG: unknown Hospital Course Hospital Course Hospital Course: Nohemy Schneider is a 23 yo who was admitted on 12/28/22 for painful irregular contractions. Over night she progressed to 5/60/-2 at 1AM on 12/30/23 she has not made any cervical change since that time and has not had any additional contractions. The patient desires discharge home and will follow up in the office on friday. Strict return precautions were reviewed. Pt voiced understanding of all discharge instructions Exam Data for Last 24 hours Vital signs and Labs for Last 24 Hours: Temp Pulse Resp BP Pulse Ox O2 Del Method 97.8 F 58 L 15 120/57 L 98 Room Air 01/31/24 08:13 01/31/24 08:13 01/31/24 08:13 01/31/24 08:13 01/31/24 08:13 01/31/24 08:13 Temp Pulse Resp BP Pulse Ox 98.4 F 74 16 122/70 97 05/04/22 08:25 05/04/22 08:25 05/04/22 08:25 05/04/22 08:25 05/04/22 08:25 I & O for Last 24 hours: Intake & Output 01/28/24 01/29/24 01/30/24 01/31/24 23:59 23:59 23:59 23:59 Weight 152 lb Intake & Output 05/02/22 05/03/22 05/04/22 05/05/22 11:59 11:59 11:59 11:59 Intake Total 1999 Balance 1999 Weight 152 lb Microbiology Reports for the Last 24 Hours: Microbiology 05/02/22 20:44 Urine,Clean Catch Urine Culture - Final Multiple organisms, suggests contamination. Constitutional Constitutional: no acute distress *Routine HEENT Exam Head: Present normocephalic Eye: Absent conjunctival icterus or scleral injection ENT: Present mucous membranes moist *Routine Neck Exam Neck: Present supple *Routine Respiratory Exam Respiratory: Present CTA bilaterally *Routine Cardiovascular Exam Cardiovascular: Present RRR *Routine Abdominal Exam Abdominal: Present soft; Absent tenderness or distended *Routine Rectal Exam Patient deferred: visual exam and digital exam *Routine Extremities Exam Extremities: Present edema *Routine Skin Exam Skin: Present intact and dry Comments: Incision intact without erythema or purulent drainage *Routine Neurological Exam Neurological: Present alert and oriented X3 Routine Psychiatric Exam Psychiatric: Present normal affect; Absent depressed DS: Diagnosis Discharge Diagnosis (1) History of : Status: Acute Code(s): Z98.891 - History of uterine scar from previous surgery (2) 37 weeks gestation of : Status: Acute Code(s): Z3A.37 - 37 weeks gestation of (3) Irregular contractions: Status: Acute Code(s): O47.9 - False labor, unspecified (4) Tobacco smoking complicating : Status: Acute Code(s): O99.330 - Smoking (tobacco) complicating , unspecified trimester (5) Family history of SIDS (sudden syndrome): Status: Acute Code(s): Z84.82 - Family history of sudden syndrome Problem details: G1 , at 4 months (6) Desires (vaginal after ) trial: Status: Acute Code(s): O34.219 - Maternal care for unspecified type scar from previous delivery Meds Home Medications and Allergies Home Medications Medication Instructions Recorded Confirmed Type ferrous sulfate 325 mg PO DAILY 05/02/22 01/30/24 History vits no.126-ferrous fum 1 tab PO DAILY 05/02/22 01/30/24 History 28 mg iron-folic acid 800 mcg tablet (Classic ) New Prescriptions to Start Prescriptions: Allergies Allergy/AdvReac Type Severity Reaction Status Date / Time No Known Allergies Allergy Verified 04/30/22 11:06 Discharge Plan Disposition Patient Disposition: Home, Self-Care Discharge Order Discharge Orders: Discharge Order (Routine); Ordered 01/31/24 Ordered By: Tari Perez Follow up Plan Follow up with: Tari Perez DO [Staff Physician] - 02/03/24 2:45 pm Prescriptions/Medication Reconciliation: Continued Classic 28 mg iron- 800 mcg tablet 1 tab PO DAILY ferrous sulfate 325 mg (65 mg iron) tablet,delayed release 325 mg (65 mg iron) 325 mg PO DAILY Problem Reconciliation Problems Reviewed?: Yes Patient Discharge Instructions ACTIVITY: Continue current activity DIET: regular diet Patient Instructions: How to Do Kick Counts, Antepartum Care Providers Primary Care Provider: Provider,Referral Admit Provider: Jennifer Tamayo Attending Provider: Jennifer Tamayo
== END 2024-01-31 12:27 | disposition home or self-care (01) | DRG 833 ==
LOC: OBOUT 20:27 → OB 20:27
PROVIDERS: Admitting Provider Obstetrics & Gynecology; Visit Provider Obstetrics & Gynecology
DX: O47.1 False labor at or after 37 completed weeks of gestation (principal); Z3A.37 37 weeks gestation of pregnancy; O99.333 Smoking (tobacco) complicating pregnancy, third trimester; O34.219 Maternal care for unspecified type scar from previous cesarean delivery
CPT/HCPCS: 36415; 59025; 80307; 81001; 85025; 86850; 87086; J7120

== ENCOUNTER 2024-02-10 03:51 | Inpatient (IN) | payer SELFPAY ==
[2024-02-10 04:02] VITALS: BMI 27.8
[2024-02-10 04:53] LABS: Microscopic, Urine URINE MICROSCOPIC (MICROSCOPIC)
[2024-02-10 04:54] VITALS: BP 138/67; PULSE 85; RESP 20; TEMP 36.7; O2SAT 98
[2024-02-10 04:55] LABS: Basophils # 0.1 K/mm3 (0-0.2); Basophils % 0.6 % (0.1-2.0); Eosinophils # 0.4 K/mm3 (0.0-0.4); Eosinophils % 3.1 % (0.1-12.0); Hematocrit 33.7 % (37.0-47.0); Hemoglobin 11.2 g/dL (12.2-16.2); Lymphocytes # 3.3 K/mm3 (0.7-4.5); Lymphocytes % 25.8 % (10-50); Mean Corpuscular HGB Conc 33.3 g/dL (31.8-35.4); Mean Corpuscular Hemoglobin 29.2 pg (27.0-31.2); Mean Corpuscular Volume 87.8 fl (81-99); Monocytes # 0.8 K/mm3 (0.1-1.0); Monocytes % 6.5 % (1.7-9.3); Neutrophils # 8.1 K/mm3 (1.8-7.8); Neutrophils % 63.9 % (37.0-80.0); Platelet Count 211 K/mm3 (142-424); Red Blood Count 3.84 M/mm3 (4.20-5.40); Red Cell Distribution Width 14.1 % (11.5-17.5); White Blood Count 12.6 K/mm3 (4.8-10.8)
[2024-02-10 04:56] LABS: Bilirubin,Urine Negative (Negative); Blood, Urine Negative (Negative); Color,Urine YELLOW (Yellow); Glucose,Urine (UA) Negative (Negative); Ketones,Urine Negative (Negative); Leukocyte Esterase,Urine 2+ (Negative); Nitrate,Urine Negative (Negative); Protein,Urine Negative (Negative); Specific Gravity, Urine 1.015 (1.005-1.030); Urobilinogen,Urine 0.2 EU/dl (0.2)
[2024-02-10 04:57] VITALS: BMI 27.8
[2024-02-10 04:57] LABS: Appearance,Urine Slightly Cloudy (Clear)
[2024-02-10 05:12] LABS: Bacteria,Urine Trace /lpf
[2024-02-10 06:07] LABS: Amphetamine/Metha Screen,Urine Negative ng/ml (<1000); Barbiturates Screen,Urine Negative ng/ml (<200)
[2024-02-10 06:08] LABS: Benzodiazepines Screen,Urine Negative ng/ml (<200); Cannabinoid Screen,Urine Negative ng/ml (<50)
[2024-02-10 06:09] LABS: Cocaine Screen,Urine Negative ng/ml (<300)
[2024-02-10 06:10] LABS: Methadone Screen,Urine Negative ng/ml (<300); Opiate Screen,Urine Negative ng/ml (<300)
[2024-02-10 06:11] LABS: Phencyclidine Screen,Urine Negative ng/ml (<25)
[2024-02-10] MEDS: OXYTOCIN/RINGERS LACTATE 30 UNITS/500 ML BAG IV (08:30)
[2024-02-10] MEDS: DEXTROSE 5%-LACTATED RINGERS 1,000 ML 125 ML IV ×2 (08:30→12:50)
--- NOTE | 2024-02-10 10:03 | P.PNANES_ITS ---
[facility] Disclaimer: The information contained in this section may have been updated after the patient was seen, as this information can be updated by other users. Medical History 37 weeks gestation of Irregular contractions Delivered by section Surgical History History of Social History Smoking Status: Current every day smoker alcohol intake: never substance use type: denies use current occupational status: unemployed Travel in the last 8 weeks: None [facility] Anesthesia Checklist Patient Identification Patient Identification: Arm Band and Verbal (Name & ) Structural Data Admitted From: Inpatient ([id number]) Planned Operative Procedure/s: Labor Epidural Consent for Planned Operative Procedure(s) Verified: Yes Verified Documents: Surgical Consent and History and Physical NPO Status Verified Time NPO: 23:30 Chart Verification Results Verified: CBC Additional verifications Patient : Yes (39 3/7 wk IUP) Anesthesia Reactions: No Cardiovascular Assessment Heart Sounds: S1 & S2 Pulse Rhythm: Irregular Peripheral Edema: No Airway Assessment Mallampati Score:: Class II C-Spine Mobility Assessed: Yes (FROM) TMJ Mobility Assessed: Yes Dentition: Good Dentition (Nothing loose per pt.) Neurological Assessment Level of Consciousness: Awake, Alert, Appropriate and Follows Commands Hx Seizures: No Numbness or tingling in extremities: No Anesthesia Plan Anesthesia Risk discussed: Yes Anesthesia Plan: Verified ASA Class: II Anesthesia Type: Epidural
--- NOTE | 2024-02-10 10:05 | P.PCN_ITS ---
[facility] Procedure Note Date: 02/10/24 Time: 09:35 Procedure Note:: ANESTHESIA PROCEDURE NOTE Labor Epidural Position: Sitting Prep: Betadine x3 Local to skin: Lido 1% x 3mL Needle: 19g Raysa TETE to Air @: 5.5cm CSF: NEGATIVE; Heme: NEGATIVE; Parasthesia: NEGATIVE Catheter threaded w/o difficulty to: 20cm Test dose: NEGATIVE x5mL Lido 1.5% w/epi 1:200K Catheter taped @skin: 15cm Bolus: 10mL Ropivicaine 0.2% + Fentanyl 50mcg FOREIGN EXCHANGE TRADER: Started @12mL/hr w/0.2% Ropivicaine +Fentanyl 2mcg/mL Pt. tolerated well. Will continue to follow as needed.
[2024-02-10] MEDS: LACTATED RINGERS 1000ML 1,000 ML 500 ML IV (10:15)
[2024-02-10] MEDS: OXYTOCIN/RINGERS LACTATE 30 UNITS/500 ML BAG 999 UNITS IV (14:18)
[2024-02-10] MEDS: OXYTOCIN/RINGERS LACTATE 30 UNITS/500 ML BAG 40 UNITS IV (14:35)
--- NOTE | 2024-02-10 16:10 | EXP.HP ---
History of Present Illness *Admission Date: 02/10/24 *Reason for visit:: induction *History of present illness: Kym Nick is a 23-year-old -1-0-2 who presented to labor and delivery this morning for a scheduled induction at 39 weeks and 3 days gestation. This is complicated by a previous delivery secondary to breech presentation, desires vaginal delivery. She had 2 prior vaginal deliveries. She recently transferred her care. Obstetrical history is also complicated by a history of at 4 months secondary to SIDS GBS negative PFSH [facility] Disclaimer: The information contained in this section may have been updated after the patient was seen, as this information can be updated by other users. Medical History 37 weeks gestation of Irregular contractions Delivered by section Surgical History History of Social History Smoking Status: Current every day smoker alcohol intake: never substance use type: denies use current occupational status: unemployed Travel in the last 8 weeks: None Review of Systems Review of Systems Review of systems (narrative): Review of Systems Constitutional: Denies fever, chills, and sweats Eyes: Denies vision change/ pain Respiratory: Denies cough and shortness of breath Cardiovascular: Denies chest pain and lightheadedness Gastrointestinal: Denies abdominal pain. Denies nausea, vomiting. Genitourinary: Denies dysuria and incontinence Musculoskeletal: Denies shoulder pain and back pain Neurological: Denies change in speech or headaches Meds Home Medications and Allergies Home Medications Medication Instructions Recorded Confirmed Type ferrous sulfate 325 mg PO DAILY 05/02/22 02/10/24 History vits no.126-ferrous fum 1 tab PO DAILY 05/02/22 02/10/24 History 28 mg iron-folic acid 800 mcg tablet (Classic ) aspirin 81 mg tablet,delayed 81 mg PO DAILY 02/10/24 02/10/24 History release New Prescriptions to Start Prescriptions: Allergies Allergy/AdvReac Type Severity Reaction Status Date / Time No Known Allergies Allergy Verified 02/03/24 14:37 Exam Data for Last 24 hours Vital signs and Labs for Last 24 Hours: Temp Pulse Resp BP Pulse Ox O2 Del Method 98.1 F 85 20 138/67 98 Room Air 02/10/24 04:54 02/10/24 04:54 02/10/24 04:54 02/10/24 04:54 02/10/24 04:54 02/10/24 04:54 Laboratory Results - last 24 hr 02/10/24 04:45: Urine Color Yellow, Urine Appearance Slightly cloudy, Urine pH 6.0, Ur Specific [place] 1.015, Urine Protein Negative, Urine Glucose (UA) Negative, Urine Ketones Negative, Urine Blood Negative, Urine Nitrate Negative, Urine Bilirubin Negative, Urine Urobilinogen 0.2, Ur Leukocyte Esterase 2+ A, Urine RBC None, Urine WBC 5-10, Ur Squamous Epith Cells 10-20, Urine Bacteria Trace 02/10/24 04:50: WBC 12.6 H, RBC 3.84 L, Hgb 11.2 L, Hct 33.7 L, MCV 87.8, MCH 29.2, MCHC 33.3, RDW 14.1, Plt Count 211, MPV 10.0, Neut % (Auto) 63.9, Lymph % (Auto) 25.8, Bradford % (Auto) 6.5, Eos % (Auto) 3.1, Baso % (Auto) 0.6, Neut # (Auto) 8.1 H, Lymph # (Auto) 3.3, Bradford # (Auto) 0.8, Eos # (Auto) 0.4, Baso # (Auto) 0.1, Urine Opiates Screen Negative, Urine Methadone Screen Negative, Ur Barbituates Screen Negative, Ur Phencyclidine Scrn Negative, Ur Amphetamines Screen Negative, U Benzodiazepines Scrn Negative, Urine Cocaine Screen Negative, U Marijuana (THC) Screen Negative, Blood Type O Positive, Antibody Screen Negative I & O for Last 24 hours: Intake & Output 02/07/24 02/08/24 02/09/24 02/10/24 23:59 23:59 23:59 23:59 Weight 152 lb Narrative: General: patient is alert oriented in no acute distress and responds appropriately to questions. HEENT: NCAT, EOMI, moist mucous membranes, neck supple with full ROM Cardiovascular: RRR +S1/S2, no murmurs or rubs Pulmonary: Clear to auscultation bilaterally, nonlabored breathing, symmetric chest rise Abdominal: Gravid abdomen appropriate for gestation. No guarding, rebound, or tenderness noted. Extremities: trace edema, no tenderness or cyanosis noted Skin: Normal turgor, intact, warm. Negative for erythema, pallor, petechia, or lesions Neurologic: Negative for sensory or motor deficit Psychiatric: Normal affect, normal thought process, good judgment and insight, no depression or anxious mood appreciated. *Routine HEENT Exam Head: Present normocephalic and atraumatic Eye: Present EOMI, PERRL and normal accommodation; Absent conjunctival icterus, scleral injection, nystagmus or exophthalmos ENT: Present mucous membranes moist *Routine Respiratory Exam Respiratory: Present CTA bilaterally, normal respiratory effort, able to speak in complete sentences and symmetric chest movement; Absent accessory muscle use, decreased breath sounds, rales, respiratory distress, wheezes, distant breath sounds or diminished air movement *Routine Cardiovascular Exam Cardiovascular: Present RRR, Normal S1 and Normal S2; Absent murmur or gallop *Routine Abdominal Exam Abdominal: Present soft and normoactive bowel sounds; Absent tenderness, distended, rebound or guarding *Routine Rectal Exam Rectal:: deferred *Routine Genitalia Exam Genitalia:: normal female Assessment and Plan *Assessment and plan (1) History of : Status: Acute Category: Surgical Code(s): Z98.891 - History of uterine scar from previous surgery (2) 37 weeks gestation of : Status: Resolved Category: Medical Code(s): Z3A.37 - 37 weeks gestation of (3) Tobacco smoking complicating : Status: Acute Category: Medical Code(s): O99.330 - Smoking (tobacco) complicating , unspecified trimester (4) Family history of SIDS (sudden infant syndrome): Problem Comment: G1 , at 4 months Status: Acute Category: Medical Code(s): Z84.82 - Family history of sudden infant syndrome (5) Desires (vaginal after ) trial: Status: Acute Category: Surgical Code(s): O34.219 - Maternal care for unspecified type scar from previous delivery Plan We again reviewed the risk of . Patient consented to these risk and agreed to AROM with low-dose Pitocin AROM completed, category 1 strip following, clear fluid, tolerated well If patient desires proceed with epidural anesthesia Continue to monitor continuously with external heart rate and tocometer
--- NOTE | 2024-02-10 16:16 | EXP.DN ---
Delivery Note Delivery Date:: 02/10/24 Delivery Time:: 14:15 Anesthesia Type: Epidural Was labor medically induced?: Yes Induction method: AROM Gestational age (weeks): 39 Infant delivered prior to 39 weeks?: No Infant Gender: Female at 1 minute: 8 at 5 minutes: 8 Delivery Procedure:: Preoperative diagnosis: 1. at 39 completed this weeks gestation, vertex 2. Rh positive 3. GBS negative 4. Previous delivery, desires trial of labor Postoperative diagnosis: 1. at 39 completed this weeks gestation, vertex 2. Rh positive 3. GBS negative 4. Previous delivery, desires trial of labor 5. Successful EBL: 200mL Specimen: 1. Cord blood Findings: 1. Liveborn viable female . Apgars 8/8 at 1 and 5 minutes respectively. Weight 6 pounds 4 ounces Complications: None Procedure: Normal spontaneous vaginal delivery Patient was brought to labor and delivery induction at term. She had artificial rupture of membranes revealing scant, clear fluid. She received an epidural for anesthesia. Low-dose Pitocin was started for labor augmentation and increased to a max of 6. She progressed to complete. The infant was noted to be in SANDRINE position. With effective maternal pushing there was a nonoperative spontaneous vaginal delivery at 1415. There was a nuchal cord x1 that was reduced without difficulty. The anterior right shoulder delivered, followed by the posterior shoulder without dystocia. The body and lower extremities delivered without difficulty. The infant was bulb suctioned and was crying immediately following delivery. The was placed on the maternal abdomen and greater than one minute was appreciated for delayed cord clamping. The umbilical cord was doubly clamped and cut. Cord blood was collected and sent for routine testing. The placenta delivered at 1418 with cord traction and suprapubic contertraction. The uterus was firm and bleeding was minimal. The perineum, vaginal wagoner, cervix, and paraurethral area were inspected thoroughly and noted to be hemostatic, free of laceration. The patient tolerated the delivery well. All counts were correct by nursing. Mother and were doing well and bonding upon my leaving the delivery room. Placental Delivery Description: Spontaneous
[2024-02-11] MEDS: ACETAMINOPHEN 500MG TAB 1000 MG PO (04:22)
[2024-02-11] MEDS: IBUPROFEN 400 MG TABLET 800 MG PO ×2 (04:23→13:32)
[2024-02-11 06:16] LABS: Basophils # 0.1 K/mm3 (0-0.2); Basophils % 0.6 % (0.1-2.0); Eosinophils # 0.3 K/mm3 (0.0-0.4); Eosinophils % 1.9 % (0.1-12.0); Hematocrit 32.4 % (37.0-47.0); Hemoglobin 10.5 g/dL (12.2-16.2); Lymphocytes # 3.6 K/mm3 (0.7-4.5); Lymphocytes % 26.2 % (10-50); Mean Corpuscular HGB Conc 32.4 g/dL (31.8-35.4); Mean Corpuscular Hemoglobin 28.8 pg (27.0-31.2); Mean Platelet Volume 10.4 fl (7.4-10.4); Monocytes # 0.7 K/mm3 (0.1-1.0); Neutrophils # 9.1 K/mm3 (1.8-7.8); Neutrophils % 66.4 % (37.0-80.0); Platelet Count 182 K/mm3 (142-424); Red Blood Count 3.64 M/mm3 (4.20-5.40); White Blood Count 13.8 K/mm3 (4.8-10.8)
--- NOTE | 2024-02-11 08:10 | P.DS_ITS ---
General Admission date:: 02/10/24 Discharge date: 02/11/24 HPI HPI HPI: Kym Nick is a 23-year-old -1-0-2 who presented to labor and delivery this morning for a scheduled induction at 39 weeks and 3 days gestation. This is complicated by a previous delivery secondary to breech presentation, desires vaginal delivery. She had 2 prior vaginal deliveries. She recently transferred her care. Obstetrical history is also complicated by a history of at 4 months secondary to SIDS GBS negative Hospital Course Hospital Course Hospital Course: Nohemy Nick is a 23yo PPD#1 from a successful . She transferred late in care and had an uncomplicated , delivery and care. She requested discharge home today. She is ambulating, voiding, tolerating p.o. without difficulty, dysuria, or nausea and vomiting. Her bleeding is scant. Her pain is well-controlled. Routine discharge instructions reviewed with patient in detail and she voiced understanding. She requested Depo Provera injection prior to discharge. Reports that she still desires bilateral salpingectomy. She will follow-up in 2 weeks. To sign her KMA papers and have a pp visit. She had a Hgb drop from 11.2 to 10.5. She delivered a live viable female infant: Narcisa Hollis, weighing 6lb 4oz with apgars of 8/8. Exam Data for Last 24 hours Vital signs and Labs for Last 24 Hours: Temp Pulse Resp BP Pulse Ox O2 Del Method 98.1 F 85 20 138/67 98 Room Air 02/10/24 04:54 02/10/24 04:54 02/10/24 04:54 02/10/24 04:54 02/10/24 04:54 02/10/24 04:54 Laboratory Results - last 24 hr 02/11/24 06:03: WBC 13.8 H, RBC 3.64 L, Hgb 10.5 L, Hct 32.4 L, MCV 89.0, MCH 28.8, MCHC 32.4, RDW 14.0, Plt Count 182, MPV 10.4, Neut % (Auto) 66.4, Lymph % (Auto) 26.2, Castro % (Auto) 5.0, Eos % (Auto) 1.9, Baso % (Auto) 0.6, Neut # (Auto) 9.1 H, Lymph # (Auto) 3.6, Castro # (Auto) 0.7, Eos # (Auto) 0.3, Baso # (Auto) 0.1 I & O for Last 24 hours: Intake & Output 02/08/24 02/09/24 02/10/24 02/11/24 23:59 23:59 23:59 23:59 Weight 152 lb Narrative: General: patient is alert oriented in no acute distress and responds appropriately to questions. Appears to be in minimal pain. Sitting up in the chair and doing well HEENT: NCAT, EOMI, moist mucous membranes, neck supple with full ROM Cardiovascular: RRR +S1/S2, no murmurs or rubs Pulmonary: Clear to auscultation bilaterally, nonlabored breathing, symmetric chest rise Abdominal: Fundus at the umbilicus, firm, and tenderness appropriate for the period. Extremities: trace edema, no tenderness or cyanosis noted Skin: Normal turgor, intact, warm. Negative for erythema, pallor, petechia, or lesions Neurologic: Negative for sensory or motor deficit Psychiatric: Normal affect, normal thought process, good judgment and insight, no depression or anxious mood appreciated. Results Data Completed and Pending Labs on day of discharge: Labs from last 24 hours 02/11/24 06:03 WBC 13.8 H RBC 3.64 L Hgb 10.5 L Hct 32.4 L MCV 89.0 MCH 28.8 MCHC 32.4 RDW 14.0 Plt Count 182 MPV 10.4 Neut % (Auto) 66.4 Lymph % (Auto) 26.2 Castro % (Auto) 5.0 Eos % (Auto) 1.9 Baso % (Auto) 0.6 Neut # (Auto) 9.1 H Lymph # (Auto) 3.6 Castro # (Auto) 0.7 Eos # (Auto) 0.3 Baso # (Auto) 0.1 DS: Diagnosis Discharge Diagnosis (1) History of : Status: Acute Code(s): Z98.891 - History of uterine scar from previous surgery (2) 37 weeks gestation of : Status: Resolved Code(s): Z3A.37 - 37 weeks gestation of (3) Tobacco smoking complicating : Status: Acute Code(s): O99.330 - Smoking (tobacco) complicating , unspecified trimester (4) Family history of SIDS (sudden infant syndrome): Status: Acute Code(s): Z84.82 - Family history of sudden infant syndrome Problem details: G1 , at 4 months (5) Desires (vaginal after ) trial: Status: Acute Code(s): O34.219 - Maternal care for unspecified type scar from previous delivery Meds Home Medications and Allergies Home Medications Medication Instructions Recorded Confirmed Type ferrous sulfate 325 mg PO DAILY 05/02/22 02/10/24 History vits no.126-ferrous fum 1 tab PO DAILY 05/02/22 02/10/24 History 28 mg iron-folic acid 800 mcg tablet (Classic ) acetaminophen 500 mg tablet 500 mg PO Q6H PRN fever #30 tabs 02/11/24 Rx ibuprofen 800 mg tablet 800 mg PO Q8H PRN pain #60 tabs 02/11/24 Rx sennosides 8.6 mg tablet (Senna 8.6 mg PO BIDP PRN Constipation 02/11/24 Rx Lax) #60 tabs New Prescriptions to Start Prescriptions: acetaminophen Tari Perez ibuprofen Tari Perez sennosides [Senna Lax] Tari Perez Allergies Allergy/AdvReac Type Severity Reaction Status Date / Time No Known Allergies Allergy Verified 02/03/24 14:37 Discharge Plan Disposition Patient Disposition: Home, Self-Care Discharge Order Discharge Orders: Discharge Order (Routine); Ordered 02/11/24 Ordered By: Tari Perez Follow up Plan Follow up with: Tari Perez DO [Staff Physician] - Enter time for follow up Prescriptions/Medication Reconciliation: New sennosides [Senna Lax] 8.6 mg Tablet 8.6 mg PO BIDP PRN (Reason: Constipation) Qty: 60 2RF ibuprofen 800 mg tablet 800 mg PO Q8H PRN (Reason: pain) Qty: 60 2RF acetaminophen 500 mg tablet 500 mg PO Q6H PRN (Reason: fever) Qty: 30 3RF Continued Classic 28 mg iron- 800 mcg tablet 1 tab PO DAILY ferrous sulfate 325 mg (65 mg iron) tablet,delayed release 325 mg (65 mg iron) 325 mg PO DAILY Discontinued aspirin [Aspir-81] 81 mg Tablet,Delayed Release (Dr/Ec) 81 mg PO DAILY Problem Reconciliation Problems Reviewed?: Yes Patient Discharge Instructions ACTIVITY: Continue current activity DIET: regular diet Additional Instructions: Congratulations on the delivery of your sweet baby girl. It is my privilege to be your doctor and I am so thankful I could be a part of your special day. Discharge: -Take 800 mg Ibuprofen every 8 hours as needed for pain. You can also take 500- 1000 mg of Tylenol in between doses, every 6-8 hours. -Colace can be taken 1-2 times per day as you need to soften your stool. Make sure to drink at least 8 cups of water per day. -Iron supplements can make you constipated. You can take iron tablets every other day if constipation is too bad. -Nothing in the vagina for 6 weeks - no sex, douching, tampons. No tub baths -Do not lift greater than 15 pounds for 6 weeks, this is the equivalent of 2 gallons of milk. -Reasons to return to L&D or call On-Call doctor - fever (greater than 100.4) - heavy vaginal bleeding (soaking through 1 pad in less than 2 hours or passing clots that are egg sized) - vaginal discharge (malodorous and/or purulent) - severe headaches, leg tenderness/edema, or any other symptoms that warrant immediate medical attention. depression/blues - Normal to feel anxious/overwhelmed for first 2 weeks - Talk to your doctor if: anxiety lasts over 2 weeks, trouble bonding with baby, withdrawing from other family members, thoughts of harming yourself or others Tari Perez DO [facility] [phone] *Nothing in the Vagina for 6 weeks* *No strenuous activity* *No heavy lifting* *No tub baths until okay's by MD* Providers Primary Care Provider: Provider,Referral Admit Provider: Tari Perez Attending Provider: Tari Perez
[2024-02-11] MEDS: FERROUS SULFATE 325MG TABLET 325 MG PO (15:52)
[2024-02-11] MEDS: PRENATAL MULTIVITAMIN W/IRON 1 EACH PO (15:52)
[2024-02-11] MEDS: MEDROXYPROGESTERONE ACETATE 150MG/ML SYR 150 MG IM (15:53)
== END 2024-02-11 16:27 | disposition home or self-care (01) | DRG 807 ==
PROVIDERS: Admitting Provider Obstetrics & Gynecology; Visit Provider Obstetrics & Gynecology
DX: O34.211 Maternal care for low transverse scar from previous cesarean delivery (principal); Z37.0 Single live birth; N85.8 Other specified noninflammatory disorders of uterus; Z3A.39 39 weeks gestation of pregnancy; O99.334 Smoking (tobacco) complicating childbirth; F17.200 Nicotine dependence, unspecified, uncomplicated
CPT/HCPCS: 59612; 36415; 59025; 80307; 81001; 85025; 86850; 87086; 94761; G0283; J1050; J3010; J7120

== ENCOUNTER 2024-09-19 17:09 | Emergency (ER) | payer MEDICAID, SELFPAY ==
[2024-09-19 17:15] VITALS: BP 172/92; PULSE 103; RESP 18; TEMP 36.8; O2SAT 99; BMI 28.9
--- NOTE | 2024-09-19 18:27 | HMH.EDGENADL ---
Discharge Plan Disposition Patient Disposition: Home, Self-Care Condition: Good Prescriptions Prescriptions: New ibuprofen 800 mg tablet 800 mg PO Q8H PRN (Reason: uterine bleeding) 7 Days Qty: 21 0RF No Action sennosides [Senna Lax] 8.6 mg Tablet 8.6 mg PO BIDP PRN (Reason: Constipation) Qty: 60 2RF ibuprofen 800 mg tablet 800 mg PO Q8H PRN (Reason: pain) Qty: 60 2RF acetaminophen 500 mg tablet 500 mg PO Q6H PRN (Reason: fever) Qty: 30 3RF Classic 28 mg iron- 800 mcg tablet 1 tab PO DAILY ferrous sulfate 325 mg (65 mg iron) tablet,delayed release 325 mg (65 mg iron) 325 mg PO DAILY Referrals Follow up/Referrals: Tari Perez DO [Staff Physician] - See instructions Provider,Referral, [Primary Care Provider] - See instructions Activity Restrictions/Add. Instructions Additional Instructions/Restrictions: You were evaluated in the emergency department today. 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 Please follow-up closely with gynecology next week. You will need to call them to schedule an appointment. Return to the emergency department for new or worsening symptoms. Clinical Impressions Clinical Impression: Abnormal uterine bleeding Stand Alone Forms Stand Alone Forms: Work/School Release Instructions Patient Instructions: DI for Abnormal Uterine Bleeding Print Language Print Language: Portuguese Discharge ED Provider: Shasta Guerrero General Adult HPI General Chief complaint: Abdominal Pain Stated complaint: heavy menstrual cycle, abd pain Time Seen by Provider: 09/19/24 18:14 Mode of Arrival: Ambulatory Source of Information: Patient Limitations: No Limitations Description of Symptoms (Recalled from ER Triage Doc. by RN): Patient states she has been having difficulty with her menstrual cycle since she delivered her daughter 7 months ago. States every time she goes to urinate, she is passing blood clots. States she is currently going through 8-9 pads per day. States at the beginning of her cycle, she bleeds heavily. 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 States she has not followed up in the last 7 months. States today, there was sharp pain in her lower abdomen and this change brought her to the ED. History of Present Illness HPI narrative: This patient is a 24-year-old female status post 02/10/2024 presented to the emergency department for evaluation with concern for heavy periods. Patient states that since having her daughter, she has very heavy periods, passing a large amount of blood clots every time she goes to urinate while on her period. She states that she is going through 8-9 pads a day but they are not completely saturated. No notable pain with this. No pain at this time. No other concerns noted currently. Related Data Home Medications ?Medication ?Instructions ?Recorded ?Confirmed ferrous sulfate 325 mg PO DAILY 05/02/22 02/10/24 vits no.126-ferrous fum 1 tab PO DAILY 05/02/22 02/10/24 28 mg iron-folic acid 800 mcg tablet (Classic ) Previous Rx's ?Medication ?Instructions ?Recorded acetaminophen 500 mg tablet 500 mg PO Q6H PRN fever #30 tabs 02/11/24 ibuprofen 800 mg tablet 800 mg PO Q8H PRN pain #60 tabs 02/11/24 sennosides 8.6 mg tablet (Senna 8.6 mg PO BIDP PRN Constipation 02/11/24 Lax) #60 tabs ibuprofen 800 mg tablet 800 mg PO Q8H PRN uterine bleeding 09/19/24 7 days #21 tabs Allergies Allergy/AdvReac Type Severity Reaction Status Date / Time No Known Allergies Allergy Verified 02/03/24 14:37 [facility] Disclaimer: The information contained in this section may have been updated after the patient was seen, as this information can be updated by other users. Medical History 37 weeks gestation of Irregular contractions Delivered by section Surgical History History of Family History Other No significant family history Social History Smoking Status: Current every day smoker alcohol intake: never substance use type: denies use current occupational status: unemployed Travel in the last 8 weeks: None Have you lived/traveled outside US in past 30 days?: No Contact w/someone who lives/traveled outside US past 30 days?: No Exposure to someone with infectious disease in past 14 days?: No Do you have a fever (greater than 100.4 F or 38 C)?: No Have you tested positive for COVID-19: No Exposed to someone with COVID-19 in past 14 days?: No Do you have a sore throat?: No Do you have a cough?: No Do you have any weakness?: No Do you have any diarrhea?: No Are you experiencing any unusual bleeding?: No Do you have any muscle aches/pain?: No Do you have any abdominal pain?: No Are you experiencing loss of taste or smell?: No Other Medical History Have you received the Flu Vaccine for this season: No Have you received the Pneumonia Vaccine: No ROS Obtained: Yes All systems reviewed & no additional complaints except as documented Physical Exam General General appearance: alert and in no apparent distress Head Head exam: atraumatic and normocephalic Eye Eye exam: Present normal appearance, PERRL and EOMI ENT ENT exam: Present normal exam, normal oropharynx, mucous membranes moist and normal external ear exam Neck Neck exam: Present normal inspection, full ROM and trachea midline; Absent tenderness Chest Chest inspection: Present normal inspection and symmetric chest wall rise; Absent tenderness Respiratory Respiratory exam: Present normal lung sounds bilaterally; Absent respiratory distress, wheezes, stridor or accessory muscle use Cardiovascular Cardiovascular exam: Present regular rate and normal rhythm Abdominal Exam Abdominal exam: Present soft; Absent distention, tenderness or guarding Extremities Exam Extremities exam: Present normal inspection, full ROM and normal capillary refill; Absent tenderness or edema Back Exam Back exam: Present normal inspection and full ROM; Absent tenderness Neurological Exam Neurological exam: Present alert, oriented X3, CN II-XII intact and normal gait; Absent motor sensory deficit Psychiatric Psychiatric exam: Present normal affect and normal mood Skin Skin exam: Present warm and dry Medical Decision Making Medical Records Medical records reviewed: Yes I reviewed the patient's medical records. Screening: Per USPSTF and CDC recommendations, given the prevalence of disease in our region, it is our hospital?s policy to screen for HIV and viral Hepatitis for all patients aged 18 and over and those with ongoing risk factors. [place] Inquiry Pt receiving controlled substance: No Vital Signs: 09/19/24 17:15 09/19/24 19:32 09/19/24 19:34 Temperature 98.3 F 98.2 F 97.9 F Temperature Source Oral Oral Oral Pulse Rate 116 H 72 Pulse Rate [Radial] 103 H Respiratory Rate 18 20 14 Blood Pressure 117/73 114/74 Blood Pressure [R ARm] 172/92 H Blood Pressure Mean [R ARm] 118 Blood Pressure Source Automatic Cuff Automatic Cuff Blood Pressure Source [R ARm] Automatic Cuff Blood Pressure Position Supine Supine 02 Sat by Pulse Oximetry 99 Oxygen Delivery Method Room Air Room Air Room Air Lab Data Lab results reviewed: Yes I reviewed the patient's lab results. Lab Results 09/19/24 18:15: WBC 13.2 H, RBC 4.50, Hgb 12.7, Hct 38.6, MCV 85.8, MCH 28.2, MCHC 32.9, RDW 13.5, Plt Count 300, MPV 11.1 H, Neut % (Auto) 66.0, Lymph % (Auto) 27.0, [place] % (Auto) 5.8, Eos % (Auto) 0.2, Baso % (Auto) 0.8, Neut # (Auto) 8.7 H, Lymph # (Auto) 3.6, [place] # (Auto) 0.8, Eos # (Auto) 0.0, Baso # (Auto) 0.1, PT 11.0, INR 1.00, APTT 25.4, Sodium 141, Potassium 3.2 L, Chloride 104, Carbon Dioxide 30, Anion Gap 10.2, BUN 7, Creatinine 0.60, Estimated Creat Clear 164, Estimated GFR 123, Est GFR ( Amer) 149, Glucose 106 H, Calcium 9.6, Total Bilirubin 0.4, AST 32, ALT 20, Alkaline Phosphatase 61, Total Protein 7.1, Albumin 4.7, Globulin 2.4, Albumin/Globulin Ratio 2.0 H, Serum HCG, Qual Negative, HCV Ab ERIKA w/Rflx PCR Qn Negative, HIV Ag/Ab Combo Qual Negative 09/19/24 18:15 09/19/24 18:15 Orders (Tests/Meds): ED MEDICATIONS Discontinued Medications Generic Name Dose Route Start Last Admin Trade Name Freq PRN Reason Stop Dose Admin Ibuprofen 800 mg 09/19/24 19:24 09/19/24 19:30 Ibuprofen 400 Mg Tablet PO 09/19/24 19:25 800 mg ONCE ONE Administration ORDERS Category Date Time Status Complete Blood Count Auto Diff Stat Lab 09/19/24 18:15 Completed Comprehensive Metabolic Panel Stat Lab 09/19/24 18:15 Completed HIV Combo Stat Lab 09/19/24 18:15 Completed Hepatitis C Ab Qual. W/ RFX Stat Lab 09/19/24 18:15 Completed PT INR [Prothrombin Time INR] Stat Lab 09/19/24 18:15 Completed PTT [Activated Partial Thrombo Time] Stat Lab 09/19/24 18:15 Completed Serum [HCG Qualitative, Serum] Stat Lab 09/19/24 18:15 Completed Medical Decision Narrative: In summary, this patient is a 24-year-old female presenting to the Emergency Department for evaluation of heavy periods. Differential diagnoses considered include but are not limited to uterine fibroid, dysfunctional uterine bleeding, anemia, dysmenorrhea. Ruling out the most morbid conditions drove assessment. I reviewed patient's past medical records and noted prior uncomplicated vaginal delivery after 02/10/2024. On exam, the patient is sitting upright in no acute distress with normal vital signs on cardiac telemetry. She has no pain, abdominal exam is completely benign. Workup included CBC, CMP, coags, test. Labs obtained are reassuring with very mild leukocytosis, which appears to be chronic. No significant anemia. Platelet count normal, coags reassuring. Chemistry demonstrates mild hypokalemia but otherwise reassuring. test negative. At this time, feel the patient is appropriate for discharge with trial of NSAIDs to help with dysfunctional uterine bleeding and instructions for close follow-up with gynecology. Strict return precautions were given and the patient was discharged after all questions were answered. Critical Care Critical Care Time Critical Care Time: No
[2024-09-19 18:47] LABS: Basophils # 0.1 K/mm3 (0-0.2); Basophils % 0.8 % (0.1-2.0); Eosinophils % 0.2 % (0.1-12.0); Hematocrit 38.6 % (37.0-47.0); Hemoglobin 12.7 g/dL (12.2-16.2); Lymphocytes # 3.6 K/mm3 (0.7-4.5); Mean Corpuscular HGB Conc 32.9 g/dL (31.8-35.4); Mean Corpuscular Hemoglobin 28.2 pg (27.0-31.2); Mean Corpuscular Volume 85.8 fl (81-99); Mean Platelet Volume 11.1 fl (7.4-10.4); Monocytes # 0.8 K/mm3 (0.1-1.0); Monocytes % 5.8 % (1.7-9.3); Neutrophils # 8.7 K/mm3 (1.8-7.8); Platelet Count 300 K/mm3 (142-424); Red Cell Distribution Width 13.5 % (11.5-17.5); White Blood Count 13.2 K/mm3 (4.8-10.8)
--- NOTE | 2024-09-19 19:00 | PC.NURSE ---
patient resting comfortably
[2024-09-19 19:01] LABS: Albumin Level 4.7 g/dl (3.5-5.0); Chloride 104 mmol/L (98-107); Potassium 3.2 mmoL/L (3.5-5.1); Sodium 141 mmol/L (136-145)
[2024-09-19 19:03] LABS: Activated Partial Thrombo Time 25.4 seconds (22.5-28.5); Alanine Aminotransferase 20 U/L (12-78); Anion Gap 10.2 mEq/L (5-15); Aspartate Amino Transferase 32 U/L (14-36); Blood Urea Nitrogen 7 mg/dl (7-17); Carbon Dioxide 30 mmol/L (22.0-30.0); Creatinine Clearance Estimated 164 mL/min (50-200); Estimated Glomerular Filt Rate 123 ml/min (>60); GFR (African American) 149 ML/MIN (>60)
[2024-09-19 19:04] LABS: Alkaline Phosphatase 61 U/L (38-126); Bilirubin,Total 0.4 mg/dl (0.2-1.3); Calcium 9.6 mg/dl (8.4-10.2); Globulin 2.4 g/dL (1.3-3.2); Glucose 106 mg/dl (74-100); Total Protein,Serum 7.1 g/dl (6.3-8.2)
[2024-09-19 19:05] LABS: HCG Qualitative, Serum Negative (Negative)
[2024-09-19] MEDS: IBUPROFEN 400 MG TABLET 800 MG PO (19:30)
[2024-09-19 19:32] VITALS: BP 117/73; PULSE 116; RESP 20; TEMP 36.8; O2SAT 98
[2024-09-19 19:34] VITALS: BP 114/74; PULSE 72; RESP 14; TEMP 36.6; O2SAT 98
[2024-09-19 19:55] LABS: HIV Combo NEGATIVE (Negative)
[2024-09-19 20:56] LABS: Hepatitis C Ab Qual. W/ RFX NEGATIVE (Negative)
== END 2024-09-19 19:36 | disposition home or self-care (01) ==
PROVIDERS: Emergency Provider Emergency Medicine
DX: N93.9 Abnormal uterine and vaginal bleeding, unspecified (principal); R10.30 Lower abdominal pain, unspecified; Z72.0 Tobacco use
CPT/HCPCS: 80053; 84703; 85025; 85610; 85730; 86803; 87389; 99283

== ENCOUNTER 2024-11-11 17:46 | Emergency (ER) | payer MEDICAID, SELFPAY ==
[2024-11-11 17:53] VITALS: BP 124/70; PULSE 86; RESP 16; TEMP 37.1; O2SAT 99; BMI 27.4
--- NOTE | 2024-11-11 17:56 | ECG_ITS ---
APPROVED REPORT Exam: Resting ECG HR:66 bpm ECG Measurements Heart Rate 66 AXES NJ 152 P 56 QRSd 81 QRS 50 QT 381 T 30 QTc 395 Conclusion SINUS RHYTHM NORMAL ECG Electronically signed by : MAURY BERGER, 11/18/2024 07:35:49
--- NOTE | 2024-11-11 17:57 | XR_ITS ---
PROCEDURE INFORMATION: Exam: XR Chest Exam date and time: 11/11/2024 6:03 PM Age: 24 years old Clinical indication: Pain; Chest pressure; Additional info: Cp TECHNIQUE: Imaging protocol: Radiologic exam of the chest. Views: 1 view. COMPARISON: CR XR CHEST PORTABLE 11/27/2021 6:11 PM FINDINGS: Lungs: There is mild new elevation of the left hemidiaphragm. Lung volumes are mildly diminished. The lungs appear clear. No focal areas of consolidation. Pleural spaces: No pleural effusions. Negative for pneumothorax. Heart/Mediastinum: Cardiac silhouette and pulmonary vasculature are within range of normal. Bones/joints: There is no evidence of acute fracture. There is a minor convex right thoracic scoliosis, unchanged. IMPRESSION: Mildly diminished lung volumes with new mild left hemidiaphragmatic elevation. Otherwise, stable exam.
[2024-11-11 18:05] LABS: Coronavirus 19, PCR Not Detected (NotDetected); Influenza A, PCR Not Detected (NotDetected); Influenza B, PCR Not Detected (NotDetected)
[2024-11-11] MEDS: guaiFENesin 200MG/10ML SYRUP UDC 200 MG PO (18:08)
[2024-11-11] MEDS: ACETAMINOPHEN 500MG TAB 1000 MG PO (18:08)
[2024-11-11 18:16] LABS: Basophils # 0.1 K/mm3 (0-0.2); Basophils % 0.6 % (0.1-2.0); Eosinophils # 0.2 K/mm3 (0.0-0.4); Eosinophils % 1.9 % (0.1-12.0); Hematocrit 36.6 % (37.0-47.0); Hemoglobin 11.7 g/dL (12.2-16.2); Lymphocytes # 3.9 K/mm3 (0.7-4.5); Lymphocytes % 35.6 % (10-50); Mean Corpuscular Hemoglobin 26.5 pg (27.0-31.2); Mean Platelet Volume 11.5 fl (7.4-10.4); Monocytes # 0.6 K/mm3 (0.1-1.0); Monocytes % 5.3 % (1.7-9.3); Neutrophils # 6.1 K/mm3 (1.8-7.8); Neutrophils % 56.4 % (37.0-80.0); Platelet Count 329 K/mm3 (142-424); Red Blood Count 4.41 M/mm3 (4.20-5.40); Red Cell Distribution Width 13.8 % (11.5-17.5); White Blood Count 10.9 K/mm3 (4.8-10.8)
[2024-11-11 18:19] LABS: Chloride 108 mmol/L (98-107)
[2024-11-11 18:20] LABS: Albumin Level 4.3 g/dl (3.5-5.0); Potassium 4.1 mmoL/L (3.5-5.1); Sodium 140 mmol/L (136-145)
[2024-11-11 18:22] LABS: Blood Urea Nitrogen 7 mg/dl (7-17); Creatinine Clearance Estimated 133 mL/min (50-200); Estimated Glomerular Filt Rate 103 ml/min (>60); GFR (African American) 124 ML/MIN (>60)
[2024-11-11 18:23] LABS: Alanine Aminotransferase 17 U/L (12-78); Albumin/Globulin Ratio 1.6 (1.1-1.8); Alkaline Phosphatase 78 U/L (38-126); Anion Gap 11.1 mEq/L (5-15); Aspartate Amino Transferase 28 U/L (14-36); Bilirubin,Total 0.3 mg/dl (0.2-1.3); Calcium 9.3 mg/dl (8.4-10.2); Carbon Dioxide 25 mmol/L (22.0-30.0); Globulin 2.7 g/dL (1.3-3.2); Glucose 99 mg/dl (74-100)
[2024-11-11 18:46] LABS: Troponin I < 0.01 ng/ml (0.00-0.034)
--- NOTE | 2024-11-11 18:57 | ED_ITS ---
<Statement entered by Kym Aaron MD - 11/11/24 20:06> I was consulted by the HEATHER, and we discussed the complexity of the problems being addressed. I approved the treatment and management plan for this patient's care in the emergency department, thus performing a substantive portion of the medical decision making. Kym Aaron MD, HEBER, FACEP Discharge Plan Disposition Patient Disposition: Home, Self-Care Prescriptions Prescriptions: New azithromycin [Zithromax TRI-BUTCH] 500 mg tablet 500 mg PO DAILY 5 Days Qty: 5 0RF benzonatate 100 mg capsule 100 mg PO BID PRN (Reason: cough) Qty: 7 0RF amoxicillin-pot clavulanate 875-125 mg tablet 1 tab PO BID Qty: 20 0RF No Action sennosides [Senna Lax] 8.6 mg Tablet 8.6 mg PO BIDP PRN (Reason: Constipation) Qty: 60 2RF ibuprofen 800 mg tablet 800 mg PO Q8H PRN (Reason: pain) Qty: 60 2RF acetaminophen 500 mg tablet 500 mg PO Q6H PRN (Reason: fever) Qty: 30 3RF ibuprofen 800 mg tablet 800 mg PO Q8H PRN (Reason: uterine bleeding) 7 Days Qty: 21 0RF Classic 28 mg iron- 800 mcg tablet 1 tab PO DAILY ferrous sulfate 325 mg (65 mg iron) tablet,delayed release 325 mg (65 mg iron) 325 mg PO DAILY Referrals Follow up/Referrals: Provider,Referral, [Primary Care Provider] - See instructions Activity Restrictions/Add. Instructions Additional Instructions/Restrictions: Today you were evaluated in the emergency department and diagnosed with a right- sided pneumonia. Please take the 2 antibiotics as directed. Please use the cough medication for symptomatic relief. Increase your fluid intake. Follow-up with your primary care provider within 7 days. Return to the ED for worsening of condition. Clinical Impressions Clinical Impression: Pneumonia Qualifiers: Pneumonia type: due to unspecified organism Laterality: right Lung location: l ower lobe of lung Qualified Code(s): J18.9 - Pneumonia, unspecified organism Cough Qualifiers: Cough type: acute Qualified Code(s): R05.1 - Acute cough Instructions Patient Instructions: Pneumonia--Adult Print Language Print Language: Greek Discharge ED Provider: Kym Aaron General Adult HPI General Chief complaint: Upper Respiratory Infection Stated complaint: chest mando., cough, not sleeping Time Seen by Provider: 11/11/24 17:50 Mode of Arrival: Ambulatory Source of Information: Patient Description of Symptoms (Recalled from ER Triage Doc. by RN): pt presents to ED with c/o cough, congestion, mucus. pt reports symptoms ongoing for the past 4-5 days. pt states that symptoms began in her nose and then went into her chest. pt reports cp when she coughs, History of Present Illness HPI narrative: patient is a 24-year-old female who presents to the ED with 4 days of cough, congestion and intermittent chest pain. Patient states her chest pain is when she coughs. She has not taken any medication prior to arrival. Related Data Home Medications ?Medication ?Instructions ?Recorded ?Confirmed ferrous sulfate 325 mg PO DAILY 05/02/22 02/10/24 vits no.126-ferrous fum 1 tab PO DAILY 05/02/22 02/10/24 28 mg iron-folic acid 800 mcg tablet (Classic ) Previous Rx's ?Medication ?Instructions ?Recorded acetaminophen 500 mg tablet 500 mg PO Q6H PRN fever #30 tabs 02/11/24 ibuprofen 800 mg tablet 800 mg PO Q8H PRN pain #60 tabs 02/11/24 sennosides 8.6 mg tablet (Senna 8.6 mg PO BIDP PRN Constipation 02/11/24 Lax) #60 tabs ibuprofen 800 mg tablet 800 mg PO Q8H PRN uterine bleeding 09/19/24 7 days #21 tabs amoxicillin 875 mg-potassium 1 tab PO BID #20 tabs 11/11/24 clavulanate 125 mg tablet azithromycin 500 mg tablet 500 mg PO DAILY 5 days #5 tabs 11/11/24 (Zithromax TRI-BUTCH) benzonatate 100 mg capsule 100 mg PO BID PRN cough #7 caps 11/11/24 Allergies Allergy/AdvReac Type Severity Reaction Status Date / Time No Known Allergies Allergy Verified 02/03/24 14:37 [facility] Disclaimer: The information contained in this section may have been updated after the patient was seen, as this information can be updated by other users. Medical History 37 weeks gestation of Irregular contractions Delivered by section Surgical History History of Family History Other No significant family history Social History Smoking Status: Current every day smoker alcohol intake: never substance use type: denies use current occupational status: unemployed Travel in the last 8 weeks: None Have you lived/traveled outside US in past 30 days?: No Contact w/someone who lives/traveled outside US past 30 days?: No Exposure to someone with infectious disease in past 14 days?: No Do you have a fever (greater than 100.4 F or 38 C)?: No Have you tested positive for COVID-19: No Exposed to someone with COVID-19 in past 14 days?: No Do you have a sore throat?: No Do you have a cough?: Yes Do you have any weakness?: No Do you have any diarrhea?: No Are you experiencing any unusual bleeding?: No Do you have any muscle aches/pain?: No Do you have any abdominal pain?: No Are you experiencing loss of taste or smell?: No Other Medical History Have you received the Flu Vaccine for this season: No Have you received the Pneumonia Vaccine: No ROS Obtained: Yes Systems reviewed as appropriate & no additional complaints except as documented Physical Exam General General appearance: alert and in no apparent distress Head Head exam: atraumatic and normocephalic Eye Eye exam: Present normal appearance and PERRL ENT ENT exam: Present normal exam Neck Neck exam: Present normal inspection Chest Chest inspection: Present normal inspection and symmetric chest wall rise; Absent tenderness Respiratory Respiratory exam: Present wheezes Cardiovascular Cardiovascular exam: Present regular rate Abdominal Exam Abdominal exam: Present soft and normal bowel sounds; Absent tenderness Extremities Exam Extremities exam: Present normal inspection and full ROM Back Exam Back exam: Present normal inspection and full ROM Neurological Exam Neurological exam: Present alert and oriented X3 Psychiatric Psychiatric exam: Present normal affect and normal mood Skin Skin exam: Present warm and dry Medical Decision Making Medical Records Screening: Per USPSTF and CDC recommendations, given the prevalence of disease in our region, it is our hospital?s policy to screen for HIV and viral Hepatitis for all patients aged 18 and over and those with ongoing risk factors. Flaquito Inquiry Pt receiving controlled substance: No Vital Signs: 11/11/24 17:53 11/11/24 18:58 11/11/24 19:16 Temperature 98.8 F 98.2 F Temperature Source Oral Oral Pulse Rate 63 57 L Pulse Rate [Left Radial] 86 Respiratory Rate 16 20 Blood Pressure 110/60 111/49 L Blood Pressure [Right Arm] 124/70 Blood Pressure Mean [Right Arm] 88 Blood Pressure Source Automatic Cuff Blood Pressure Position Sitting 02 Sat by Pulse Oximetry 99 98 Oxygen Delivery Method Room Air Room Air Room Air Lab Data Lab Results 11/11/24 18:00: SARS-CoV-2 (PCR) Not detected, Influenza A Untype (PCR) Not detected, Influenza Type B (PCR) Not detected 11/11/24 18:07: WBC 10.9 H, RBC 4.41, Hgb 11.7 L, Hct 36.6 L, MCV 83.0, MCH 26.5 L, MCHC 32.0, RDW 13.8, Plt Count 329, MPV 11.5 H, Neut % (Auto) 56.4, Lymph % (Auto) 35.6, [place] % (Auto) 5.3, Eos % (Auto) 1.9, Baso % (Auto) 0.6, Neut # (Auto) 6.1, Lymph # (Auto) 3.9, [place] # (Auto) 0.6, Eos # (Auto) 0.2, Baso # (Auto) 0.1, Sodium 140, Potassium 4.1, Chloride 108 H, Carbon Dioxide 25, Anion Gap 11.1, BUN 7, Creatinine 0.70, Estimated Creat Clear 133, Estimated GFR 103, Est GFR ( Amer) 124, Glucose 99, Calcium 9.3, Total Bilirubin 0.3, AST 28, ALT 17, Alkaline Phosphatase 78, Troponin I < 0.01, Total Protein 7.0, Albumin 4.3, Globulin 2.7, Albumin/Globulin Ratio 1.6 11/11/24 18:07 11/11/24 18:07 Orders (Tests/Meds): ED MEDICATIONS Discontinued Medications Generic Name Dose Route Start Last Admin Trade Name Freq PRN Reason Stop Dose Admin Acetaminophen 1,000 mg 11/11/24 17:59 11/11/24 18:08 Acetaminophen 500mg Tab PO 11/11/24 18:00 1,000 mg ONCE ONE Administration Guaifenesin 200 mg 11/11/24 17:59 11/11/24 18:08 Guaifenesin 200mg/10ml Syrup Udc PO 11/11/24 18:00 200 mg ONCE ONE Administration ORDERS Category Date Time Status CXR --portable [XR chest portable] Stat Exams 11/11/24 17:57 Completed CBC w/Auto Diff [Complete Blood Count Auto Diff] Stat Lab 11/11/24 18:07 Completed CMP [Comprehensive Metabolic Panel] Stat Lab 11/11/24 18:07 Completed Rapid PCR Covid and Flu A/B Stat Lab 11/11/24 18:00 Completed Trop I [Troponin I] Stat Lab 11/11/24 18:07 Completed Troponin I Q3H Lab 11/11/24 21:00 Ordered Medical Decision Narrative: In summary, patient is a 24-year-old female PMHx tobacco use who presents to the ED with 4 days of cough, congestion and intermittent chest pain. Patient states her chest pain is when she coughs. She has not taken any medication prior to arrival. Has not been around sick contacts that she knows of. Denies any additional complaints. Denies fever, chills, bodyaches, headache, shortness of breath, abdominal pain, nausea, vomiting. Upon initial evaluation patient is alert, oriented and cooperative. She is hemodynamically stable. Her physical exam is remarkable for mild, bilateral, expiratory wheezing. Differential diagnosis include COVID, influenza, viral illness, pneumonia, among others. Will proceed with hematologic labs, respiratory swab and chest x-ray. Patient symptomatically managed with Robitussin and acetaminophen. CBC remarkable for mild leukocytosis, WBC 10.9, stable H&H. CMP overall unremarkable. First troponin < 0.01. COVID and influenza swab negative. Discussed with patient that on her chest x-ray it appears she has a right lower lobe pneumonia, will treat with Augmentin and Z-Butch. Patient given a prescription for Tessalon Perles for symptomatic management. I advised her she will need to increase her fluid intake. We discussed follow-up with PCP within 7 days. We discussed return precautions to the ED and patient verbalized understanding. She was hemodynamically stable and ambulatory upon leaving the ED. Critical Care Critical Care Time Critical Care Time: No
[2024-11-11 18:58] VITALS: BP 110/60; PULSE 63; O2SAT 98
--- NOTE | 2024-11-11 19:02 | PC.NURSE ---
Report received from Lory RN Pt sleeping when undisturbed Skin pink warm and dry Resp full and easy Speech clear and appropriate. IV site without redness and edema
[2024-11-11 19:16] VITALS: BP 111/49; PULSE 57; RESP 20; TEMP 36.8; O2SAT 99
== END 2024-11-11 19:17 | disposition home or self-care (01) ==
PROVIDERS: Nurse Practitioner; Emergency Provider Student in an Organized Health Care Education/Training Program
DX: J18.9 Pneumonia, unspecified organism (principal); R05.1 Acute cough; R07.9 Chest pain, unspecified; R05.9 Cough, unspecified; R09.81 Nasal congestion; Z72.0 Tobacco use
CPT/HCPCS: 71045; 80053; 84484; 85025; 87636; 93005; 99284

== ENCOUNTER 2025-05-25 21:02 | Observation (INO) | payer MEDICAID, SELFPAY ==
--- OUTSIDE RECORDS SUMMARY | 2014-04-27 10:30 | XMS_ITS | Continuity of Care Document ---
Author Organization [facility] ction Address [address] [place] [address] Phone Care Team Providers Care Customer Solutions Coordinator Name Role Phone Chucky Fernandes MD Unavailable Unavailable Allergies, Adverse Reactions, Alerts Substance Reaction Status Criticality No Known Allergies Active No Inform ation Medications Medication Instructions Dosage Effective Dates (start - stop) Status Comments No Drug Therapy Prescribed Procedures Procedure Date AUDIOMETRY, AIR & BONE Immunization Admin 1st Vaccine 14 H PAPILLOMA VACC 3 DOSE IM Immunization Admin 1st Vaccine 14 MENINGOCOCCAL VACCINE, SC Immunization Admin 1st Vaccine 14 TDAP VACCINE >7 IM Immunization Admin Each Additional Vacci ne Immunization Admin Vaccine 14 CHICKEN POX VACCINE, SC PREV VISIT, NEW, AGE 12-17 HEMOGLOBIN H PAPILLOMA VACC 3 DOSE IM CHICKEN POX VACCINE, SC MENINGOCOCCAL VACCINE, IM TDAP VACCINE >7 IM Immunization Admin 1st Vaccine 14 Advance Directives Directive Yes / No Effective Date File Name No Information Encounters Encounter Description Practice Location Reason(s) For Visit Diagnoses Date Provider PREV VISIT, NEW, AGE 12-17 [facility], [address] [place], [address], tel:[phone] [facility] preventive exam (chief complaint) Routine or child health checkScreening for other and unspecified deficiency anemia 2013 Dena Locke. [address] [place] [address], [address] [place], [place] [address] , [place], [address], . tel:[phone] Family History Family Member Type Diagnosis Age At Onset No Information Immunizations Vaccine Date Status Comments HPV administered Source: New Imm unization Record Meningococcal MPSV4 administered Source: New Immunization Record Tdap administered Source: New Imm unization Record Varicella administered Source: New Imm unization Record Payers Payer name Insurance type Covered republican ID Authoriza tion(s) [facility] Med [facility] CI [id number] [facility] [id number] [facility] CI [id number] [facility] [id number] Social History Type Description Quantity Date Captured Comments Alcohol Use Details Unknown Caffeine Use Details Unknown Tobacco Use Status No Information Smoking Status No Information Sex Female Vital Signs Date / Time: Height Weight BMI Pulse Rate Blood Pressure Temperature Respiratory Rate Body Surface Area Head Circumference Head Circ. Percentile Wt./Sal. Percentile BMI percentile Pulse Ox Inhaled Ox 2:07 PM 60.50 in 52.526 kg (115.80 lbs) 22.2 4 kg/m eter (2) 88 /min 108/60 mm[Hg] 97.30 F 79 Chief Complaint And Reason For Visit From encounter dated '04/27/2014 14:30'. preventive exam (chief complaint). Description: grade 6 does well. no pmh. nka. menarche this year monthly last apr 03. reviewed HEADss no concerns. History Of Present Illness Encounter Date Complaint History Of Prese nt Illness preventive exam grade 6 does wel l. no pmh. nka. menarche this year monthly last apr 03. reviewed HEADss no concerns. Medications Administered Medication Instructions Dosage Effective Dates (start - stop) Status Comments No Drug Therapy Prescribed Instructions Date Instruction Additional Infor mation No Information Assessments Type Assessment Date assessment Routine infant or child health c heck assessment Screening for other and unspecif ied deficiency anemia Mental Status Date Cognitive Assessment Orientation - [place] ed to time, place, person, situation.
[2025-05-25 21:08] VITALS: BP 128/58; PULSE 70; RESP 18; TEMP 36.8; O2SAT 98; BMI 27.4
[2025-05-25 21:22] LABS: Microscopic, Urine URINE MICROSCOPIC (MICROSCOPIC)
--- OUTSIDE RECORDS SUMMARY | 2025-05-25 21:22 | XMS_ITS | Clinical Summary ---
Author Organization [employer] [facility] Address [address] [place] [address] Phone Care Team Providers Care Inventory Specialist Manager Name Role Phone Marisel Brooks APRN Primary Care Physician [phone] Conditions or Problems Problem Name Problem Code Onset Date Status Entry Date Provider Comment Standard Description Annotate Supervision high risk , third trimester 93574766 (SNOMED CT) 12/11 Active 12/11 Marisel Brooks APRN High risk Body mass index (BMI) 26.0-26.9; adult Z68.26 (ICD-10-CM ) 11/20 Active 11/23 Anju Huerta MD Body mass index [BMI] 26.0-26.9, adult Uterine size date discrepancy, antepartum, unspecified trimester 294519803 (SNOMED CT) 11/20 Active 11/20 Anju Huerta MD Uterine size for dates discrepancy Body mass index (BMI) 25.0-25.9; adult Z68.25 (ICD-10-CM ) 09/15 Correction 09/15 Anju Huerta MD Body mass index [BMI] 25.0-25.9, adult 15 weeks gestation of 7695291 (SNOMED CT) 09/15 Resolved 09/15 Anju Huerta MD Gestation period, 15 weeks 27 weeks gestation of 88809862 (SNOMED CT) 11/20 Inactive 11/20 Anju Huerta MD Gestation period, 27 weeks Body mass index (BMI) 25.0-25.9; adult Z68.25 (ICD-10-CM ) 09/15 Removed 09/15 Girish Galo MD Body mass index [BMI] 25.0-25.9, adult Supervision of other high risk , second trimester 02842527 (SNOMED CT) 09/15 Active 09/15 Girish Galo MD High risk Flu vaccine 53145597 (SNOMED CT) 08/13 Inactive 08/13 Girish Galo MD Administration of influenza vaccine 10 weeks gestation of 99763889 (SNOMED CT) 08/13 Resolved 08/13 Girish Galo MD Gestation period, 10 weeks Supervision of other high risk , first trimester 38655000 (SNOMED CT) 08/13 Resolved 08/13 Girish Galo MD High risk Body mass index (BMI) 25.0-25.9; adult Z68.25 (ICD-10-CM ) 09/14 Correction 09/14 Girish Galo MD Body mass index [BMI] 25.0-25.9, adult 15 weeks gestation of 1207112 (SNOMED CT) 09/15 Removed 09/15 Girish Galo MD Gestation period, 15 weeks Positive urine drug screen (marijuana) 290154801 (SNOMED CT) 08/13 Active 08/13 Girish Galo MD Screening for drug of abuse in urine specimen positive Supervision of other high risk , first trimester 16615899 (SNOMED CT) 08/13 Removed 08/13 Girish Galo MD High risk 10 weeks gestation of 27810550 (SNOMED CT) 08/13 Removed 08/13 Girish Galo MD Gestation period, 10 weeks Flu vaccine 01443331 (SNOMED CT) 08/13 Removed 08/13 Girish Galo MD Administration of influenza vaccine Yeast infection 3943628 (SNOMED CT) 09/17 Active 09/17 Marisel Brooks APRN Mycosis Bacterial vaginosis 517369756 (SNOMED CT) 09/17 Active 09/17 Marisel Brooks APRN Bacterial vaginosis Body mass index (BMI) 25.0-25.9; adult Z68.25 (ICD-10-CM ) 09/14 Removed 09/14 Marisel Brooks APRN Body mass index [BMI] 25.0-25.9, adult [facility] 09/14 Active 09/14 Marisel Brooks APRN Tobacco user Spotting complicating , first trimester 009990788 (SNOMED CT) 09/14 Active 09/14 Marisel Brooks APRN Spotting per vagina in Bacterial vaginosis 469451338 (SNOMED CT) 09/14 Active 09/14 Marisel Brooks APRN Bacterial vaginosis Cervical polyp 79793532 (SNOMED CT) 09/14 Active 09/14 Marisel Brooks APRN Polyp of cervix Vaginal itching 54206442 (SNOMED CT) 09/14 Active 09/14 Marisel Brooks APRN Pruritus of vagina History of labor 239142553 (SNOMED CT) 09/14 Active 09/14 Marisel Brooks APRN Past history of premature labor H/O: section 404996003 (SNOMED CT) 09/14 Active 09/14 Marisel Brooks APRN Past history of section Hx of preeclampsia 091621271 (SNOMED CT) 09/14 Active 09/14 Marisel Brooks APRN H/O: hypertension Supervision high risk , first trimester 62905316 (SNOMED CT) 09/14 Active 09/14 Marisel Brooks APRN High risk Medications Medication Instructions Start Date Stop Date Generic Name ND Provider Adult Low Dose Aspirin 81 mg tablet,delayed release (DR/EC) Take 1 tablet by mouth once a day aspirin [id number] Anju Huerta MD TERCONAZOLE 0.4 % CREA Insert 1 applicatorful into vagina once a day terconazole 15863365443 Marisel Brooks APRN vaginal cream applicator USE WITH terconazole X 7 NIGHTS vaginal cream applicator 14092311890 Marisel Brooks APRN METRONIDAZOLE 500 MG TABS Take 1 tablet by mouth twice a day do not drink alcohol with this medicaiton metronidazole 22705136246 Marisel Brooks APRN 28-0.8 MG TABS Take 1 tablet by mouth once a day [id number] fumarate-fa [id number] Marisel Brooks APRN Medications Administered No information available. Allergies, Adverse Reactions, Alerts Observed no known allergies at Results Date Name Value Unit Range Flag Description Office Visit: OB INTAKE RM 6 PREG TST URN positive beta HC G, urine, semiquantitative HSV GENITAL no Herpes si mplex virus identified in Genital specimen by Organism specific culture Lab Report: DRUG MONITOR, PA CHANDRIKA 1, SCREEN, URINE, DRUG MONITOR, BUP, SCR ... PHENCYCLIDIN NEGATIVE ng/mL <25 N Phencyc lidine [Presence] in Urine OXYCODONE NEGATIVE <100 N Oxycodone urine screening METHADONEURN NEGATIVE <100 N Methado ne [Presence] in Urine by Screen method MARIJUANAURN POSITIVE <20 A Marijua na, cannabinoid screen Urine COCAINE UR NEGATIVE <150 N cocaine, urine BENZODIAZ UR NEGATIVE <100 N Benzodi azepines [Presence] in Urine AMPHETAMI UR NEGATIVE <500 N Ampheta mines [Presence] in Urine Lab Report: OBSTETRIC PANEL, ANTIBODY SCREEN, RBC W/REFL ID, TITER AND A ... TSH 1.27 u[iU]/mL N Thyrotropin [Units/volume] in Serum or Plasma BETA-HCG QN 796879 m[iU]/mL H beta HCG , serum, quantitative HEP C AB NON-REACTIVE NON-REACTIVE N He patitis C virus Ab [Presence] in Serum SGPT (ALT) 8 U/L 6-29 N Alanine aminotransferase [Enzymatic activity/volume] in Serum or Plasma SGOT (AST) 15 U/L 10-30 N Aspartate aminotransferase [Enzymatic activity/volume] in Serum or Plasma ALK PHOS 59 U/L 31-125 N Alkaline phosphatase [Enzymatic activity/volume] in Blood BILI TOTAL 0.4 mg/dL 0.2-1.2 N Bilirubin. total [Mass/volume] in Serum or Plasma A/G RATIO 1.9 (calc) 1.0-2.5 N Albumin/ Globulin [Mass Ratio] in Serum or Plasma GLOBULIN TOT 2.4 G/DL (CALC) g/dL 1.9-3.7 N Globulin [Mass/volume] in Serum ALBUMIN EOP 4.6 g/dL 3.6-5.1 N Albumin [Mass/volume] in Serum or Plasma by Electrophoresis PROTEIN, TOT 7.0 g/dL 6.1-8.1 N Protein [Mass/volume] in Serum or Plasma URIC ACID <1.5 mg/dL 2.5-7.0 L Urate [Mass /volume] in Serum or Plasma RUBELLA IGG 5.73 N Rubella v irus IgG Ab [Ratio] in Serum --1st specimen/2nd specimen HBSAG NON-REACTIVE NON-REACTIVE N Hep atitis B virus surface Ag [Presence] in Serum or Plasma by Confirmatory method ABO/RH RH(D) POSITIVE blood type with RH factor ABO BLD GRP O ABO blood group ANTIBODY SCR NO ANTIBODIES DETECTED N antibody screen, serum Lab Report: PROTEIN, TOTAL W /CREAT, RANDOM URINE, CULTURE, URINE, ROUTINE PROTEIN UR 5 mg/dL 5-24 N protein, t otal urine random CREATIN UR 46 mg/dL 20-275 N Creatinine [Mass/volume] in Urine Lab Report: THINPREP TIS PAP REFLEX HPV mRNA E6/E7, CHLAMYDIA/N.GONORRHO ... DNAPROBECAND DETECTED NOT DETECTED A Ca ndida guilliermondii DNA [Presence] in Specimen by STONEY with probe detection VAGCULTGARDN DETECTED NOT DETECTED A Va ginal Culture Gardnerella TRICHO WET NOT DETECTED NOT DETECTED N Trichomonas vaginalis [Presence] in Genital specimen by Wet preparation Office Visit: 10wk ob f/u DO NE APPEARANCE U clear Appearan ce of Urine UA COLOR yellow Color of Uri ne Lab Report: BASIC METABOLIC PANEL CALCIUM 10.0 mg/dL 8.6-10.2 N Calcium [Moles/volume] in Serum or Plasma CO2 24 mmol/L 20-32 N Carbon dioxid e, total [Moles/volume] in Venous blood CHLORIDE BLD 103 mmol/L 98-110 N chloride , blood POTASSIUM 3.7 mmol/L 3.5-5.3 N Potassium [Moles/volume] in Serum or Plasma SODIUM 135 mmol/L 135-146 N Sodium [Moles/volume] in Serum or Plasma BUN/CREAT 14 (calc) 6-22 N Urea nitrogen/Creatinine [Mass Ratio] in Serum or Plasma CREATININE 0.43 mg/dL 0.50-0.96 L Creatini ne [Mass/volume] in Serum or Plasma BUN 6 mg/dL 7-25 L Urea nitrogen [Mass/volume] in Serum or Plasma GLUCOSE SER 82 mg/dL 65-99 N Glucose [Mass/volume] in Serum or Plasma Lab Report: PROTEIN, TOTAL W /CREAT, 24 HOUR URINE PROT 24H URN 132 MG/24 H mg/24h <150 N prot ein, total, urine, 24 hour Office Visit: ob fu rm 6 gtt LABS ORDERED Urine Dip Auto 10001 Laboratory tests ordered SPEC GR URIN 1.015 Specific gravity of Urine by Test strip PH URINE 6.0 pH of Urine by Test strip GLUCOSE, URN negative Glucose [Mass/volume] in Urine by Test strip BILIRUBIN UR negative Bilirub in.total [Presence] in Urine by Test strip KETONES URN negative Ketones [Mass/volume] in Urine by Test strip BLOOD UR DIP negative blood i n urine (hemoglobin) by dipstick PROTEIN, URN negative protein , urine, semiquantitative (dipstick) UROBILINOGEN negative Urobili nogen [Presence] in Urine by Test strip NITRITE URN negative Nitrite [Presence] in Urine by Test strip WBC DIPSTK U negative Leukocy te esterase [Presence] in Urine by Test strip Lab Report: HIV 1/2 ANTIGEN/ ANTIBODY,FOURTH GENERATION W/RFL, GLUCOSE TO ... RPR NON-REACTIVE NON-REACTIVE N Lydia gin Ab [Units/volume] in Serum by VDRL BASO % MANU 0.4 % N basophils as percent of blood leukocytes, manual count EOS % MANU 1.1 % N eosinophil s as percent of blood leukocytes, manual count MONOCYTE % 6.6 % N Monocytes/ 100 leukocytes in Blood by Automated count LYMPH% P BLD 22.2 % N lymphocy joseph as percent of blood leukocytes PMN % 69.7 % N Neutrophils/1 00 leukocytes in Blood by Automated count ABS BASOS 44 {Cells}/ uL 0-200 N Basophils [#/volume] in Blood ABS EOS 122 {Cells}/ uL 15-500 N Eosinophils [#/volume] in Blood ABS MONOS 733 {Cells}/ uL 200-950 N Monocytes [#/volume] in Blood ABSLYMPHCT 2464 {Cells}/ uL 850-3900 N Lymphocytes [#/volume] in Blood ABS NEUTROPH 7737 CELLS/UL 10*3/uL 4200-0879 N Neutrophils [#/volume] in Blood MPV 12.2 fL 7.5-12.5 N Platelet kosta n volume [Entitic volume] in Blood by Venus PLATELETK/UL 221 THOUSAND/UL 10*3/uL 140-400 N platelet count RDW 12.7 % 11.0-15.0 N Erythrocyte distribution width [Ratio] by Automated count OL-MCHC 33.2 g/dL 32.0-36.0 N mean corpus cular hemoglobin concentration, rbc MCH 30.2 pg 27.0-33.0 N MCH [Entiti c mass] by Automated count MCV 90.8 fL 80.0-100.0 N MCV [Entit ic volume] by Automated count HCT 34.6 % 35.0-45.0 L Hematocrit [Volume Fraction] of Blood by Automated count HGB 11.5 g/dL 11.7-15.5 L Hemoglobin [Mass/volume] in Blood RBC M/UL 3.81 MILLION/UL 10*6/uL 3.80-5.10 N red blood count WBC CT BLOOD 11.1 10*3/uL 3.8-10.8 H leukocy te count, blood GTT 2H 142 mg/dL <153 N blood glucose , 2 hours after glucose tolerance test GTT 1H 174 mg/dL <180 N blood glucose , 60 minutes after glucose tolerance test GTT FASTING 79 mg/dL 65-91 N glucose t olerance test with glucose, fasting HIV AB NON-REACTIVE NON-REACTIVE N HIV 1 p31 Ab [Presence] in Serum by Immunoblot Plan of Care Type Date Detail Pending order Urine Dip Auto 8 1003 Pending order T1 HIV 1/2 Ag & Ab 4th gen -consent required Pending order T1 CBC with diff Pending order T1 RPR w/ reflex to titer & confirmation Pending order T1 GTT 3 Specime n () Pending order Urine Dip Auto 8 1003 Pending order Ultrasound Prena oren >= 14 wks Pending order Cervical Length Pending order Urine Dip Auto 8 1003 Pending order Ultrasound Prena oren < 14 wks Pending order Ultrasound Prena oren < 14 wks Pending Order exclud ed from report: Pending order Urine Dip Auto 8 1003 Pending order T2 24 Hr Urine C reatinine Clearance (order total Protein & CR separately) Pending order Other - Patient Pay Pending order Other1 - Patient Pay Pending order T1 BMP Pending order Urine Dip Auto 8 1003 Pending order Test 8 1025 Pending order T2 24 Hr Urine P rotein & Creatinine w/ratio (order Clearance separately) Pending order T1 ThinPrep Pap w reflex HR HPV/GC/Chlamydia mRNA E6/E7 Pending order T1 Urine Culture Pending order T1 Drug Screen S TANDARD-Urine w/o Confirmation Pending order T1 Protein:Creat inine Ratio, Urine Pending order T1 TSH reflex to free T4 Pending order T1 Uric Acid Pending order T1 CMP Pending order T1 Hep C Ab Pending order T1 HIV 1/2 Ag & Ab 4th gen -consent required Pending order T1 Pane l (Obstetric Panel) Pending order T1 HCG Serum Josh ntitative Pending order T2 BV Yeast Tric h Culture (Affirm) Patient education Patient Educat ion Given Patient education Patient Educat ion Given Patient education Patient Educat ion Given Patient education Patient Educat ion Given Patient education Patient Educat ion Given Procedures Code Procedure Name Date Entry Date [id number] Medication Reconciliation CPT-3074F Most recent systolic blood pressure <130 mm Hg CPT-3078F Most recent diastoli c blood pressure <80 mm Hg CPT-1159F Medication list docu mented in medical record CPT-1160F Review of all medica tions by a prescribing practitioner CPT-10281 Urine Dip Auto 41823 [id number] Current every day smoker 01/01/03 4004F Patient screened for tobacco use and received tobacco cessation intervention [id number] Smoking cessation education [id number] Giving encouragement to exercise [facility] 41116 T1 HIV 1/2 Ag & Ab 4 th gen -consent required [facility] 6399 T1 CBC with diff [facility] 62493 T1 RPR w/ reflex to titer & confirmation [facility] 92379 T1 GTT 3 Specimen () CPT-76813 Ultrasound Follow-up (Growth) 01/01/03 CPT-97624 Urine Dip Auto 11387 CPT-1159F Medication list docu mented in medical record CPT-3074F Most recent systolic blood pressure <130 mm Hg CPT-3078F Most recent diastoli c blood pressure <80 mm Hg [id number] Medication Reconciliation [id number] Current every day smoker 20 03/12/11 4004F Patient screened for tobacco use and received tobacco cessation intervention [id number] Smoking cessation education CL Cervical Length CPT-69397 Ultrasound >= 14 wks CPT-3074F Most recent systolic blood pressure <130 mm Hg CPT-3078F Most recent diastoli c blood pressure <80 mm Hg CPT-1159F Medication list docu mented in medical record [id number] Medication Reconciliation 4004F Patient screened for tobacco use and received tobacco cessation intervention CPT-19453 Urine Dip Auto 77937 CPT 24770 Ultrasound < 14 wks CPT-3074F Most recent systolic blood pressure <130 mm Hg CPT-3078F Most recent diastoli c blood pressure <80 mm Hg 4004F Patient screened for tobacco use and received tobacco cessation intervention [id number] Medication Reconciliation CPT-1159F Medication list docu mented in medical record 61711 Fluzone Quadrivalent CPT-66183 IMADM >18YR IM ROUTE 1ST VAC/TOXOID 08/13 CPT-13000 Urine Dip Auto 23643 [facility] 7943 T2 24 Hr Urine Creat inine Clearance (order total Protein & CR separately) Other [facility] Other - Patient Pay Other1 [facility] Other1 - Patient Pay [facility] 84062 T1 BMP [facility] 757 T2 24 Hr Urine Prote in & Creatinine w/ratio (order Clearance separately) CPT-3074F Most recent systolic blood pressure <130 mm Hg CPT-3078F Most recent diastoli c blood pressure <80 mm Hg CPT-1159F Medication list docu mented in medical record [id number] Medication Reconciliation [id number] Giving encouragement to exercise 4004F Patient screened for tobacco use and received tobacco cessation intervention [id number] Current every day smoker 02/08/04 [id number] Smoking cessation education CPT-1160F Review of all medica tions by a prescribing practitioner CPT-48941 Urine Dip Auto 10926 CPT-19159 Test 40058 [facility] 395 T1 Urine Culture [facility] 1715 T1 Protein:Creatinine Ratio, Urine 09/14 [facility] G1543 T1 Drug Screen STAND NINA-Urine w/o Confirmation [facility] 12988 T1 TSH reflex to free T4 202 10/21/03 [facility] 905 T1 Uric Acid [facility] 21896 T1 CMP [facility] 8472 T1 Hep C Ab [facility] 92242 T1 HIV 1/2 Ag & Ab 4 th gen -consent required [facility] 96342 T1 Panel (Obstetric Panel) 07/14 [facility] 8396 T1 HCG Serum Quantitative 02/08/04 [facility] 59286 T1 ThinPrep Pap w re flex HR HPV/GC/Chlamydia mRNA E6/E7 [facility] 15860 T2 BV Yeast Trich Culture (Affirm) 09/14 Vital Signs Date Name Value Unit Description BMI (Body Mass Index) 26.98 kg/m2 Bod y Mass Index (Ratio) BP Diastolic 72 mm[Hg] blood pressu re, diastolic BP Systolic 112 mm[Hg] blood pressur e, systolic BSA (Body Surface Area) 1.71 b adam surface area Height 62 [in_us] height E&M Height 157.48 cm height in cent imeters E&M Weight Measured 66.82 kg weight in kilograms E&M Weight Measured 147 [lb_av] weight E& M Weight Measured 147 [lb_av] weight E& M Heart Rate 80 /min pulse rate Body Temperature 98.6 [degF] temperat ure E&M Body Temperature 37 Leigha temperat ure in centigrade E&M Immunizations Vaccine Administration Date Standard Description CVX Co de Dose PRIVATE Fluzone Quadrivalent Intramuscular Suspension Prefilled Syringe 0.5 ML 6mos-64yrs PRIVATE Fluzone Quadrivalent Intramuscular Suspension Prefilled Syringe 0.5 ML 6mos-64yrs 150 0.5 mL Advance Directives No information available.
--- NOTE | 2025-05-25 21:25 | ED_ITS ---
<Statement entered by Milton Bolanos DO - 05/26/25 02:43> I was consulted by the HEATHER, and we discussed the complexity of problems being addressed. I approved the treatment and management plan for this patient's care in the emergency department, thus performing a substantive portion of the medical decision making. Milton Bolanos DO This is Dr. Bolanos. I assumed care of this patient at 10 PM at the time of HEATHER shift change. Patient initially presented to the emergency department today for evaluation of lower abdominal pain described in the right lower quadrant and suprapubic region. She was having no associated gastrointestinal or urinary symptoms. At the time of shift change I evaluated this patient and found that she had mild tenderness in the suprapubic region and right lower quadrant. Otherwise her exam was unremarkable. We had also obtained hematologic labs which were largely unremarkable to my interpretation as well as a urinalysis which showed no evidence of urinary tract infection. Therefore I decided to proceed with a CT scan of the abdomen and pelvis contrast. CT scan revealed appendicoliths with a dilated appendix at 1.5 cm consistent with uncomplicated acute appendicitis. I had an interactive discussion with the general surgeon on-call, Dr. Smith, who asked that we administer Unasyn to the patient and admit her to the internal medicine service. I administered 3 g of Unasyn to the patient and subsequently had an interactive discussion with the internal medicine service who agreed to evaluate the patient the emergency department. After our discussion of their evaluation they agreed to admit the patient to their service and except primary responsibility the patient moving forward. Discharge Plan Disposition Chief Complaint: Abdominal Pain Prescriptions Prescriptions: No Action sennosides [Senna Lax] 8.6 mg Tablet 8.6 mg PO BIDP PRN (Reason: Constipation) Qty: 60 2RF ibuprofen 800 mg tablet 800 mg PO Q8H PRN (Reason: pain) Qty: 60 2RF acetaminophen 500 mg tablet 500 mg PO Q6H PRN (Reason: fever) Qty: 30 3RF ibuprofen 800 mg tablet 800 mg PO Q8H PRN (Reason: uterine bleeding) 7 Days Qty: 21 0RF azithromycin [Zithromax TRI-GABRIEL] 500 mg tablet 500 mg PO DAILY 5 Days Qty: 5 0RF benzonatate 100 mg capsule 100 mg PO BID PRN (Reason: cough) Qty: 7 0RF amoxicillin-pot clavulanate 875-125 mg tablet 1 tab PO BID Qty: 20 0RF Classic 28 mg iron- 800 mcg tablet 1 tab PO DAILY ferrous sulfate 325 mg (65 mg iron) tablet,delayed release 325 mg (65 mg iron) 325 mg PO DAILY Referrals Follow up/Referrals: Provider,Referral, [Primary Care Provider, Medical] - See instructions Instructions Patient Instructions: DI for Acute Abdominal Pain Print Language Print Language: British Discharge ED Provider: Milton Bolanos General Adult HPI <Teresaterry Alexander - Last Filed: 05/25/25 22:27> General Chief complaint: Abdominal Pain Stated complaint: abdominal pain,cant eat or drink Time Seen by Provider: 05/25/25 21:25 Mode of Arrival: Ambulatory Source of Information: Patient Description of Symptoms (Recalled from ER Triage Doc. by RN): Pt presents for lower abd pain that started this am, and it has progressively become worse throughout the day. Pt states she attempt to take tylenol for her pain. Pt denies any urinary sx. Pt states she has pain when attempting to have a bowel movement. Last BM was last yesterday evening. Vin N/V History of Present Illness HPI narrative: 25-year-old female presents emergency department with complaints of suprapubic pain that started earlier today. She denies nausea, vomiting, diarrhea, fevers, urinary symptoms. She states that she last had a bowel movement yesterday. She reports that she has had a previous . She reports that her last menstrual period was the end of April. Related Data Home Medications ?Medication ?Instructions ?Recorded ?Confirmed ferrous sulfate 325 mg PO DAILY 05/02/2210/04 vits no.126-ferrous fum 1 tab PO DAILY 02/10/24 28 mg iron-folic acid 800 mcg tablet (Classic ) Previous Rx's ?Medication ?Instructions ?Recorded acetaminophen 500 mg tablet 500 mg PO Q6H PRN fever #3 0 tabs 02/11/24 ibuprofen 800 mg tablet 800 mg PO Q8H PRN pain #60 t abs 02/11/24 sennosides 8.6 mg tablet (Senna 8.6 mg PO BIDP PRN Con stipation 02/11/24 Lax) #60 tabs ibuprofen 800 mg tablet 800 mg PO Q8H PRN uterine bl eeding 09/19/24 7 days #21 tabs amoxicillin 875 mg-potassium 1 tab PO BID #20 tabs 11/02 clavulanate 125 mg tablet azithromycin 500 mg tablet 500 mg PO DAILY 5 days #5 t abs 11/11/24 (Zithromax TRI-GABRIEL) benzonatate 100 mg capsule 100 mg PO BID PRN cough #7 caps 11/11/24 Allergies Allergy/AdvReac Type Severity Reaction Status Date / Time No Known Allergies Allergy Verified 02/03/24 14:37 PFS <Teresa Alexander - Last Filed: 05/25/25 22:27> [facility] Disclaimer: The information contained in this section may have been updated after the patient was seen, as this information can be updated by other users. Medical History 37 weeks gestation of Irregular contractions Delivered by section Surgical History History of Family History Other No significant family history Social History Smoking Status: Current every day smoker alcohol intake: never substance use type: denies use current occupational status: unemployed Travel in the last 8 weeks?: None Have you lived/traveled outside US in past 30 days?: No Contact w/someone who lives/traveled outside US past 30 days?: No Exposure to someone with infectious disease in past 14 days?: No Do you have a fever (greater than 100.4 F or 38 C)?: No Have you tested positive for COVID-19?: No Exposed to someone with COVID-19 in past 14 days?: No Do you have a sore throat?: No Do you have a cough?: No Do you have any weakness?: No Do you have any diarrhea?: No Are you experiencing any unusual bleeding?: No Do you have any muscle aches/pain?: No Do you have any abdominal pain?: No Are you experiencing loss of taste or smell?: No Other Medical History Have you received the Flu Vaccine for this season: No Have you received the Pneumonia Vaccine: No <Teresa Alexander - Last Filed: 05/25/25 22:27> ROS Obtained: Yes other Gastrointestinal Gastrointestingal: Reports abdominal pain Physical Exam <Teresa Alexander - Last Filed: 05/25/25 22:27> Narrative Physical exam: General: Awake, aware, in no acute distress HEENT: Normocephalic, no evidence of trauma CV: RRR, no murmurs, rubs, or gallops Pulm: CTA bilaterally with no rhonchi, rales, wheezes ABD: Tenderness on palpation of the suprapubic area. Patient with normal active bowel sounds. No CVA tenderness on palpation. Psych, appropriate mood and affect General General appearance: alert Respiratory Respiratory exam: Present normal lung sounds bilaterally Cardiovascular Cardiovascular exam: Present regular rate Neurological Exam Neurological exam: Present alert Medical Decision Making <Teresa Alexander - Last Filed: 05/25/25 22:27> Medical Records Screening: Per USPSTF and CDC recommendations, given the prevalence of disease in our region, it is our hospital?s policy to screen for HIV and viral Hepatitis for all patients aged 18 and over and those with ongoing risk factors. [place]quito Inquiry Pt receiving controlled substance: No Vital Signs: 05/25/25 21:08 Temperature 98.3 F Temperature Source Temporal Artery Scan Pulse Rate [Right] 70 Respiratory Rate 18 Blood Pressure [Right Arm] 128/58 L Blood Pressure Mean [Right Arm] 81 Blood Pressure Source [Right Arm] Automatic Cuff Blood Pressure Position [Right Arm] Sitting 02 Sat by Pulse Oximetry 98 Oxygen Delivery Method Room Air Lab Data Lab Results 05/25/25 21:43: WBC 11.9 H, RBC 4.67, Hgb 12.2, Hct 38.7, MCV 82.9, MCH 26.1 L, MCHC 31.5 L, RDW 15.9, Plt Count 287, MPV 11.7 H, Neut % (Auto) 57.0, Lymph % (Auto) 34.3, [place] % (Auto) 6.4, Eos % (Auto) 0.9, Baso % (Auto) 0.8, Neut # (Auto) 6.8, Lymph # (Auto) 4.1, [place] # (Auto) 0.8, Eos # (Auto) 0.1, Baso # (Auto) 0.1, Sodium 138, Potassium 3.9, Chloride 101, Carbon Dioxide 28, Anion Gap 12.9, BUN 6 L, Creatinine 0.70, Estimated Creat Clear 132, Estimated GFR 102, Est GFR ( Amer) 123, Glucose 101 H, Calcium 8.6, Magnesium 2.0, Total Bilirubin 0.2, AST 28, ALT 17, Alkaline Phosphatase 90, Total Protein 7.6, Albumin 4.3, Globulin 3.3 H, Albumin/Globulin Ratio 1.3, Lipase 107 05/25/25 : Urine Color Yellow, Urine Appearance Clear, Urine pH 6.5, Ur Specific [place] <= 1.005, Urine Protein Negative, Urine Glucose (UA) Negative, Urine Ketones Negative, Urine Blood Negative, Urine Nitrate Negative, Urine Bilirubin Negative, Urine Urobilinogen 0.2, Ur Leukocyte Esterase Negative, Urine RBC Occasional, Urine WBC Occasional, Ur Squamous Epith Cells 5-10, Urine Bacteria 3+, Urine HCG, Qual Negative 05/25/25 21:43 05/25/25 21:43 Orders (Tests/Meds): ED MEDICATIONS Generic Name Dose Route Start Last Admin Trade Name Freq PRN Reason Stop Dose Admin Sodium Chloride 10 ml 05/25/25 22:36 05/25/25 22:37 Sodium Chloride 0.9% 10ml Syr (Rad Only) IV 06/24/25 22:35 10 ml NEEDED PRN Administration Maintain IV Site Discontinued Medications Generic Name Dose Route Start Last Admin Trade Name Freq PRN Reason Stop Dose Admin Sodium Chloride 1,000 mls @ 999 mls/hr 05/25/25 21:25 05/25/25 21:41 Sod Chlor 0.9% 1000ml Bag IV 05/25/25 22:25 999 mls/hr .Q1H1M ONE Administration Iopamidol 75 ml 05/25/25 22:36 05/25/25 22:37 Iopamidol-370 (76%);100ml Bottle IV 05/25/25 22:37 75 ml ONCE ONE Administration Ketorolac Tromethamine 30 mg 05/25/25 21:25 05/25/25 21:42 Ketorolac 30mg/Ml Vial IV 05/25/25 21:26 30 mg ONCE ONE Administration ORDERS Category Date Time Status CT abdomen pelvis w con Stat Cat Scan 05/25/25 22:24 Completed CBC w/Auto Diff [Complete Blood Count Auto Diff] Stat Lab 05/25/25 21:43 Completed CMP [Comprehensive Metabolic Panel] Stat Lab 05/25/25 21:43 Completed Lipase Stat Lab 05/25/25 21:43 Completed Magnesium Stat Lab 05/25/25 21:43 Completed Urinalysis and Microscopic Stat Lab 05/25/25 Completed Urine , HCG Qual. Stat Lab 05/25/25 Completed Urine Culture Stat Micro 05/25/25 Received Medical Decision Narrative: Initial impression of presenting illness: 25-year-old female presents emergency department complaints of suprapubic pain that started earlier today. She denies nausea, vomiting, diarrhea, fevers, urinary symptoms. She reports her last bowel movement was yesterday. She reports her last menstrual period was the end of April. Differential diagnosis includes but is not limited to: Urinary tract infection, gastroenteritis, pelvic inflammatory disease, constipation, STI Patient arrives hemodynamically stable, afebrile, without respiratory distress with vital signs interpreted by myself. Initial physical exam reveals tenderness on palpation of suprapubic area with normal active bowel sounds no CVA tenderness noted on palpation. Rest of exam is unremarkable. Initial diagnostic plan: Laboratory studies including urinalysis. Normal saline bolus for hydration as well as Toradol for pain control. STI testing Results from initial plan were reviewed and interpreted by myself, pertinent positives include: White blood cell count 11.9, rest of laboratory studies were nonactionable. Urinalysis was positive for 3+ bacteria however there was only occasional red blood cells, white blood cells but there were 5-10 epithelial cells per high-power field. After speaking with the ED attending Dr. Bolanos not been able to find the source of patient's pain we have added on a CT of abdomen pelvis with IV contrast. Interventions in the ED: Normal saline bolus for hydration as well as Toradol for pain control. Handoff of care given to ED attending Dr. Bolanos pending the completion of patient's workup. <Milton Bolanos, - Last Filed: 05/25/25 23:57> Flaquito Inquiry [place] was queried for this patient: No Vital Signs: 05/25/25 21:08 Temperature 98.3 F Temperature Source Temporal Artery Scan Pulse Rate [Right] 70 Respiratory Rate 18 Blood Pressure [Right Arm] 128/58 L Blood Pressure Mean [Right Arm] 81 Blood Pressure Source [Right Arm] Automatic Cuff Blood Pressure Position [Right Arm] Sitting 02 Sat by Pulse Oximetry 98 Oxygen Delivery Method Room Air Lab Data Lab Results 05/25/25 21:43: WBC 11.9 H, RBC 4.67, Hgb 12.2, Hct 38.7, MCV 82.9, MCH 26.1 L, MCHC 31.5 L, RDW 15.9, Plt Count 287, MPV 11.7 H, Neut % (Auto) 57.0, Lymph % (Auto) 34.3, [place] % (Auto) 6.4, Eos % (Auto) 0.9, Baso % (Auto) 0.8, Neut # (Auto) 6.8, Lymph # (Auto) 4.1, [place] # (Auto) 0.8, Eos # (Auto) 0.1, Baso # (Auto) 0.1, Sodium 138, Potassium 3.9, Chloride 101, Carbon Dioxide 28, Anion Gap 12.9, BUN 6 L, Creatinine 0.70, Estimated Creat Clear 132, Estimated GFR 102, Est GFR ( Amer) 123, Glucose 101 H, Calcium 8.6, Magnesium 2.0, Total Bilirubin 0.2, AST 28, ALT 17, Alkaline Phosphatase 90, Total Protein 7.6, Albumin 4.3, Globulin 3.3 H, Albumin/Globulin Ratio 1.3, Lipase 107 05/25/25 : Urine Color Yellow, Urine Appearance Clear, Urine pH 6.5, Ur Specific [place] <= 1.005, Urine Protein Negative, Urine Glucose (UA) Negative, Urine Ketones Negative, Urine Blood Negative, Urine Nitrate Negative, Urine Bilirubin Negative, Urine Urobilinogen 0.2, Ur Leukocyte Esterase Negative, Urine RBC Occasional, Urine WBC Occasional, Ur Squamous Epith Cells 5-10, Urine Bacteria 3+, Urine HCG, Qual Negative Orders (Tests/Meds): ED MEDICATIONS Generic Name Dose Route Start Last Admin Trade Name Freq PRN Reason Stop Dose Admin Sodium Chloride 10 ml 05/25/25 22:36 05/25/25 22:37 Sodium Chloride 0.9% 10ml Syr (Rad Only) IV 06/24/25 22:35 10 ml NEEDED PRN Administration Maintain IV Site Discontinued Medications Generic Name Dose Route Start Last Admin Trade Name Freq PRN Reason Stop Dose Admin Sodium Chloride 1,000 mls @ 999 mls/hr 05/25/25 21:25 05/25/25 21:41 Sod Chlor 0.9% 1000ml Bag IV 05/25/25 22:25 999 mls/hr .Q1H1M ONE Administration Iopamidol 75 ml 05/25/25 22:36 05/25/25 22:37 Iopamidol-370 (76%);100ml Bottle IV 05/25/25 22:37 75 ml ONCE ONE Administration Ketorolac Tromethamine 30 mg 05/25/25 21:25 05/25/25 21:42 Ketorolac 30mg/Ml Vial IV 05/25/25 21:26 30 mg ONCE ONE Administration ORDERS Category Date Time Status CT abdomen pelvis w con Stat Cat Scan 05/25/25 22:24 Completed CBC w/Auto Diff [Complete Blood Count Auto Diff] Stat Lab 05/25/25 21:43 Completed CMP [Comprehensive Metabolic Panel] Stat Lab 05/25/25 21:43 Completed Lipase Stat Lab 05/25/25 21:43 Completed Magnesium Stat Lab 05/25/25 21:43 Completed Urinalysis and Microscopic Stat Lab 05/25/25 Completed Urine , HCG Qual. Stat Lab 05/25/25 Completed Urine Culture Stat Micro 05/25/25 Received Critical Care <Teresa Alexander - Last Filed: 05/25/25 22:27> Critical Care Time Critical Care Time: No
[2025-05-25 21:26] LABS: Bilirubin,Urine Negative (Negative); Color,Urine YELLOW (Yellow); Glucose,Urine (UA) Negative (Negative); Ketones,Urine Negative (Negative); Leukocyte Esterase,Urine Negative (Negative); PH,Urine 6.5 (5.0-8.5); Protein,Urine Negative (Negative); Specific Gravity, Urine <= 1.005 (1.005-1.030); Urobilinogen,Urine 0.2 EU/dl (0.2)
[2025-05-25] MEDS: 0.9 % SODIUM CHLORIDE 1000ML 1,000 ML 999 ML IV (21:41)
[2025-05-25] MEDS: KETOROLAC 30MG/ML VIAL 30 MG IV (21:42)
[2025-05-25 21:53] LABS: Hematocrit 38.7 % (37.0-47.0); Hemoglobin 12.2 g/dL (12.2-16.2); Immature Granulocytes % 0.6 %; Mean Corpuscular HGB Conc 31.5 g/dL (31.8-35.4); Mean Corpuscular Hemoglobin 26.1 pg (27.0-31.2); Mean Corpuscular Volume 82.9 fl (81-99); Nucleated Red Blood Cells % 0 %; Platelet Count 287 K/mm3 (142-424); Red Blood Count 4.67 M/mm3 (4.20-5.40); Red Cell Distribution Width-SD 48.0 fL; White Blood Count 11.9 K/mm3 (4.8-10.8)
[2025-05-25 21:57] LABS: Bacteria,Urine 3+ /lpf; RBC,Urine Occasional #/hpf (0-3); WBC,Urine Occasional #/hpf (0-3)
[2025-05-25 22:10] LABS: Albumin Level 4.3 g/dl (3.5-5.0); Chloride 101 mmol/L (98-107); Sodium 138 mmol/L (136-145)
[2025-05-25 22:11] LABS: Potassium 3.9 mmoL/L (3.5-5.1)
[2025-05-25 22:11] LABS: Urine Pregnancy, HCG Qual. Negative (Negative)
[2025-05-25 22:13] LABS: Alanine Aminotransferase 17 U/L (12-78); Albumin/Globulin Ratio 1.3 (1.1-1.8); Alkaline Phosphatase 90 U/L (38-126); Anion Gap 12.9 mEq/L (5-15); Aspartate Amino Transferase 28 U/L (14-36); Bilirubin,Total 0.2 mg/dl (0.2-1.3); Blood Urea Nitrogen 6 mg/dl (7-17); Calcium 8.6 mg/dl (8.4-10.2); Carbon Dioxide 28 mmol/L (22.0-30.0); Creatinine Clearance Estimated 132 mL/min (50-200); Creatinine,Serum 0.70 mg/dl (0.52-1.04); Estimated Glomerular Filt Rate 102 ml/min (>60); GFR (African American) 123 ML/MIN (>60); Globulin 3.3 g/dL (1.3-3.2); Glucose 101 mg/dl (74-100); Lipase 107 U/L (23-300); Total Protein,Serum 7.6 g/dl (6.3-8.2)
[2025-05-25 22:14] LABS: Magnesium 2.0 mg/dl (1.6-2.3)
--- NOTE | 2025-05-25 22:24 | CT_ITS ---
PROCEDURE INFORMATION: Exam: CT Abdomen And Pelvis With Contrast Exam date and time: 05/25/2025 10:36 PM Age: 25 years old Clinical indication: Abdominal pain; Additional info: Lower abdominal pain TECHNIQUE: Imaging protocol: Computed tomography of the abdomen and pelvis with contrast. Radiation optimization: All CT scans at this facility use at least one of these dose optimization techniques: automated exposure control; mA and/or kV adjustment per patient size (includes targeted exams where dose is matched to clinical indication); or iterative reconstruction. Contrast material: ISOVUE; Contrast volume: 75 ml; Contrast route: IV; COMPARISON: US OB FOLLOW UP 04/12/2022 11:29 AM FINDINGS: Liver: Normal. No mass. Gallbladder and biliary ducts: Normal. No calcified stones. No ductal dilation. Pancreas: Normal. No ductal dilation. Spleen: Normal. No splenomegaly. Adrenal glands: Normal. No mass. Kidneys and ureters: Normal. No hydronephrosis. Stomach and bowel: Unremarkable. No obstruction. No mucosal thickening. Appendix: Enlarged appendix measuring up to 1.5 cm in diameter containing multiple small appendicoliths. Intraperitoneal space: Unremarkable. No free air. No significant fluid collection. Vasculature: Unremarkable. No abdominal aortic aneurysm. Lymph nodes: Unremarkable. No enlarged lymph nodes. Urinary bladder: Unremarkable as visualized. Reproductive: 2.5 cm right ovarian cyst. Bones/joints: Unremarkable. No acute fracture. Soft tissues: Unremarkable. IMPRESSION: 1. Uncomplicated acute appendicitis. 2. 2.5 cm right ovarian cyst.
[2025-05-25] MEDS: IOPAMIDOL-370 (76%);100ML BOTTLE 75 ML IV (22:37)
[2025-05-25] MEDS: SODIUM CHLORIDE 0.9% 10ML SYR (RAD ONLY) 10 ML IV (22:37)
[2025-05-26] VITALS (18 sets, daily range): BP systolic 102–136; BP diastolic 52–78; PULSE 52–76; RESP 14–18; TEMP 36.5–43; O2SAT 94–100; BMI 25.3; BMI 25.0
[2025-05-26] MEDS: AMPICILLIN/SULBACTAM 3 GM in 0.9 % SODIUM CHLORIDE 100 ML IV (00:28)
--- NOTE | 2025-05-26 00:32 | PC.NURSE ---
Report given to Wilmer BROWNING on the floor
--- NOTE | 2025-05-26 00:46 | PC.NURSE ---
pt arrive to the floor via wheelchair from ED at 0044
--- NOTE | 2025-05-26 01:47 | P.HP_ITS ---
<Statement entered by Willis Osman MD - 05/26/25 16:20> Discussed patient with [facility], Agree with assessment and care plan as documented. History of Present Illness *Admission Date: 05/26/25 *Reason for visit:: Acute abdominal pain *History of present illness: 25 year old female presents to ER with complaint of right lower and suprapubic abdominal pain. Pain started yesterday around 7am. Describes as constant and worse with palpation. Took tylenol without relief. Denies fever, chills or body aches. Denies nausea or vomiting but has been unable to eat. She states eating makes the pain worse. ER workup shows acute appendicitis. General surgery was contacted from the ER. Plan for OR in am. [facility] Disclaimer: The information contained in this section may have been updated after the patient was seen, as this information can be updated by other users. Medical History 37 weeks gestation of Irregular contractions Delivered by section Surgical History History of Family History (Updated 05/26/25 @ 01:54 by Jennifer Tavera APRN) Other Coronary artery disease No significant family history Social History Smoking Status: Current every day smoker alcohol intake: never substance use type: denies use current occupational status: unemployed Travel in the last 8 weeks?: None Have you lived/traveled outside US in past 30 days?: No Contact w/someone who lives/traveled outside US past 30 days?: No Exposure to someone with infectious disease in past 14 days?: No Do you have a fever (greater than 100.4 F or 38 C)?: No Have you tested positive for COVID-19?: No Exposed to someone with COVID-19 in past 14 days?: No Do you have a sore throat?: No Do you have a cough?: No Do you have any weakness?: No Do you have any diarrhea?: No Are you experiencing any unusual bleeding?: No Do you have any muscle aches/pain?: No Do you have any abdominal pain?: No Are you experiencing loss of taste or smell?: No Other Medical History Have you received the Flu Vaccine for this season: No Have you received the Pneumonia Vaccine: No Review of Systems Constitutional Constitutional: Reports poor appetite Eyes Eyes: Reports system reviewed and no additional complaints, except as documented ENT Ears, Nose, Mouth, and Throat: Reports system reviewed and no additional complaints, except as documented *Cardiovascular Cardiovascular: Reports system reviewed and no additional complaints, except as documented *Respiratory Respiratory: Reports system reviewed and no additional complaints, except as documented *Gastrointestinal Gastrointestinal: Reports abdominal pain *Genitourinary Genitourinary: Reports system reviewed and no additional complaints, except as documented *Musculoskeletal Musculoskeletal: Reports system reviewed and no additional complaints, except as documented *Neurologic Neurologic: Reports system reviewed and no additional complaints, except as documented Psychiatric Psychiatric: Reports system reviewed and no additional complaints, except as documented Endocrine Endocrine: Reports system reviewed and no additional complaints, except as documented Hematologic/Lymphatic Hematologic/Lymphatic: Reports system reviewed and no additional complaints, except as documented Meds Home Medications and Allergies Home Medications ?Medication ?Instructions ?Recorded ?Confirmed ?Type acetaminophen 500 mg tablet 500 mg PO Q6H PRN fever #3 0 tabs 02/11/24 05/26/25 Rx ibuprofen 800 mg tablet 800 mg PO Q8H PRN uterine bl eeding 09/19/24 05/26/25 Rx 7 days #21 tabs New Prescriptions to Start Prescriptions: Allergies Allergy/AdvReac Type Severity Reaction Status Date / Time No Known Allergies Allergy Verified 02/03/24 14:37 Exam Data for Last 24 hours Vital signs and Labs for Last 24 Hours: Temp Pulse Resp BP Pulse Ox O2 Del Method 98.9 F 68 16 136/72 100 Room Air 05/26/25 00:59 05/26/25 00:59 05/26/25 00:59 05/26/25 00:59 05/26/25 00:55 05/26/25 01:00 Laboratory Results - last 24 hr 05/25/25 21:43: WBC 11.9 H, RBC 4.67, Hgb 12.2, Hct 38.7, MCV 82.9, MCH 26.1 L, MCHC 31.5 L, RDW 15.9, Plt Count 287, MPV 11.7 H, Neut % (Auto) 57.0, Lymph % (Auto) 34.3, [place] % (Auto) 6.4, Eos % (Auto) 0.9, Baso % (Auto) 0.8, Neut # (Auto) 6.8, Lymph # (Auto) 4.1, [place] # (Auto) 0.8, Eos # (Auto) 0.1, Baso # (Auto) 0.1, Sodium 138, Potassium 3.9, Chloride 101, Carbon Dioxide 28, Anion Gap 12.9, BUN 6 L, Creatinine 0.70, Estimated Creat Clear 132, Estimated GFR 102, Est GFR ( Amer) 123, Glucose 101 H, Calcium 8.6, Magnesium 2.0, Total Bilirubin 0.2, AST 28, ALT 17, Alkaline Phosphatase 90, Total Protein 7.6, Albumin 4.3, Globulin 3.3 H, Albumin/Globulin Ratio 1.3, Lipase 107 05/25/25 : Urine Color Yellow, Urine Appearance Clear, Urine pH 6.5, Ur Specific [place] <= 1.005, Urine Protein Negative, Urine Glucose (UA) Negative, Urine Ketones Negative, Urine Blood Negative, Urine Nitrate Negative, Urine Bilirubin Negative, Urine Urobilinogen 0.2, Ur Leukocyte Esterase Negative, Urine RBC Occasional, Urine WBC Occasional, Ur Squamous Epith Cells 5-10, Urine Bacteria 3+, Urine HCG, Qual Negative I & O for Last 24 hours: Intake & Output 05/23/25 05/24/25 05/25/25 05/26/25 23:59 23:59 23:59 23:59 Intake Total 1100 / 1100 Balance 1100 / 1100 Weight 68.039 kg 62.505 kg Constitutional Constitutional: no acute distress and cooperative *Routine HEENT Exam Head: Present normocephalic and atraumatic Eye: Present PERRL ENT: Present mucous membranes moist *Routine Neck Exam Neck: Present supple *Routine Respiratory Exam Respiratory: Present CTA bilaterally *Routine Cardiovascular Exam Cardiovascular: Present RRR, Normal S1 and Normal S2 *Routine Abdominal Exam Abdominal: Present soft, normoactive bowel sounds and tenderness; Absent rebound or guarding Comments: Tender to palpation RLQ and mid lower abdomen. *Routine Rectal Exam Rectal:: deferred *Routine Genitalia Exam Genitalia:: deferred *Routine Extremities Exam Extremities: Present pulses intact *Routine Neurological Exam Neurological: Present alert, oriented X3 and moving all extremities Routine Psychiatric Exam Psychiatric: Present normal affect Assessment and Plan *Assessment and plan (1) Uncomplicated acute appendicitis: Status: Acute Category: Medical Code(s): K35.80 - Unspecified acute appendicitis Plan Admit for acute appendicitis, uncomplicated. Surgery has been consulted and plan for OR in am. Keep NPO. Unasyn started in ER and will continue q 6 hrs. IVF for hydration. Antiemetics and pain meds prn.
[2025-05-26] MEDS: LACTATED RINGERS 1000ML 1,000 ML 100 ML IV (02:16)
[2025-05-26] MEDS: MORPHINE 2MG/ML SYRINGE 2 MG IV ×3 (02:16→10:42)
--- NOTE | 2025-05-26 06:04 | P.CONS_ITS ---
History of Present Illness *Admission Date: 05/26/25 *Reason for visit:: Appendicitis *History of present illness: Patient is a 25-year-old female who presented to the emergency department in the evening of 05/25/2025 after she developed right lower quadrant and suprapubic pain beginning around 7 AM on that day. She had taken Tylenol without relief. No other associated symptoms but stated pain was worse after eating. Evaluation in the emergency department revealed a white blood cell count of 11,900. CT scan revealed findings of uncomplicated acute appendicitis with a 1.5 cm appendix with multiple small appendicoliths. She was admitted for inpatient management and surgical consultation for management of acute appendicitis. [facility] Disclaimer: The information contained in this section may have been updated after the patient was seen, as this information can be updated by other users. Medical History 37 weeks gestation of Irregular contractions Delivered by section Surgical History History of Family History (Updated 05/26/25 @ 01:54 by Jennifer Tavera APRN) Other Coronary artery disease No significant family history Social History Smoking Status: Current every day smoker alcohol intake: never substance use type: denies use current occupational status: unemployed Travel in the last 8 weeks?: None Have you lived/traveled outside US in past 30 days?: No Contact w/someone who lives/traveled outside US past 30 days?: No Exposure to someone with infectious disease in past 14 days?: No Do you have a fever (greater than 100.4 F or 38 C)?: No Have you tested positive for COVID-19?: No Exposed to someone with COVID-19 in past 14 days?: No Do you have a sore throat?: No Do you have a cough?: No Do you have any weakness?: No Do you have any diarrhea?: No Are you experiencing any unusual bleeding?: No Do you have any muscle aches/pain?: No Do you have any abdominal pain?: No Are you experiencing loss of taste or smell?: No Review of Systems Review of Systems Review of systems:: pertinent systems reviewed and negative unless documented below *Neurologic Neurologic: Reports system reviewed and no additional complaints, except as documented Meds Home Medications and Allergies Home Medications ?Medication ?Instructions ?Recorded ?Confirmed ?Type acetaminophen 500 mg tablet 500 mg PO Q6H PRN fever #3 0 tabs 02/11/24 05/26/25 Rx ibuprofen 800 mg tablet 800 mg PO Q8H PRN uterine bl eeding 09/19/24 05/26/25 Rx 7 days #21 tabs New Prescriptions to Start Prescriptions: Allergies Allergy/AdvReac Type Severity Reaction Status Date / Time No Known Allergies Allergy Verified 02/03/24 14:37 Exam (Inpt) Vital signs and Labs for Last 24 Hours: Temp Pulse Resp BP Pulse Ox O2 Del Method 97.7 F 73 16 106/61 L 100 Room Air 05/26/25 04:00 05/26/25 04:00 05/26/25 04:00 05/26/25 04:00 05/26/25 04:00 05/26/25 05:00 Laboratory Results - last 24 hr 05/25/25 21:43: WBC 11.9 H, RBC 4.67, Hgb 12.2, Hct 38.7, MCV 82.9, MCH 26.1 L, MCHC 31.5 L, RDW 15.9, Plt Count 287, MPV 11.7 H, Neut % (Auto) 57.0, Lymph % (Auto) 34.3, [place] % (Auto) 6.4, Eos % (Auto) 0.9, Baso % (Auto) 0.8, Neut # (Auto) 6.8, Lymph # (Auto) 4.1, [place] # (Auto) 0.8, Eos # (Auto) 0.1, Baso # (Auto) 0.1, Sodium 138, Potassium 3.9, Chloride 101, Carbon Dioxide 28, Anion Gap 12.9, BUN 6 L, Creatinine 0.70, Estimated Creat Clear 132, Estimated GFR 102, Est GFR ( Amer) 123, Glucose 101 H, Calcium 8.6, Magnesium 2.0, Total Bilirubin 0.2, AST 28, ALT 17, Alkaline Phosphatase 90, Total Protein 7.6, Albumin 4.3, Globulin 3.3 H, Albumin/Globulin Ratio 1.3, Lipase 107 05/25/25 : Urine Color Yellow, Urine Appearance Clear, Urine pH 6.5, Ur Specific [place] <= 1.005, Urine Protein Negative, Urine Glucose (UA) Negative, Urine Ketones Negative, Urine Blood Negative, Urine Nitrate Negative, Urine Bilirubin Negative, Urine Urobilinogen 0.2, Ur Leukocyte Esterase Negative, Urine RBC Occasional, Urine WBC Occasional, Ur Squamous Epith Cells 5-10, Urine Bacteria 3+, Urine HCG, Qual Negative 05/26/25 00:00: Ur C. trach DNA (PCR) Negative, U N.gonorrhoeae DNA PCR Negative, T. vaginalis (PCR) Negative I & O for Labs for Last 24 Hours: Intake & Output 05/23/25 05/24/25 05/25/25 05/26/25 11:59 11:59 11:59 11:59 Intake Total 1100 / 1100 Output Total 400 / 400 Balance 700 / 700 Weight 136 lb 3.2 oz Constitutional: no acute distress Head: Present normocephalic Respiratory: Present CTA bilaterally Cardiac: Present Reg Rate and Rhythm GI: Present soft and tenderness Comments:: She has some tenderness without guarding or rebound right lower quadrant. Rectal (female): Present deferred Results Labs 05/25/25 21:43 05/25/25 21:43 Labs: Laboratory Results - last 24 hr 05/25/25 21:43: WBC 11.9 H, RBC 4.67, Hgb 12.2, Hct 38.7, MCV 82.9, MCH 26.1 L, MCHC 31.5 L, RDW 15.9, Plt Count 287, MPV 11.7 H, Neut % (Auto) 57.0, Lymph % (Auto) 34.3, [place] % (Auto) 6.4, Eos % (Auto) 0.9, Baso % (Auto) 0.8, Neut # (Auto) 6.8, Lymph # (Auto) 4.1, [place] # (Auto) 0.8, Eos # (Auto) 0.1, Baso # (Auto) 0.1, Sodium 138, Potassium 3.9, Chloride 101, Carbon Dioxide 28, Anion Gap 12.9, BUN 6 L, Creatinine 0.70, Estimated Creat Clear 132, Estimated GFR 102, Est GFR ( Amer) 123, Glucose 101 H, Calcium 8.6, Magnesium 2.0, Total Bilirubin 0.2, AST 28, ALT 17, Alkaline Phosphatase 90, Total Protein 7.6, Albumin 4.3, Globulin 3.3 H, Albumin/Globulin Ratio 1.3, Lipase 107 05/25/25 : Urine Color Yellow, Urine Appearance Clear, Urine pH 6.5, Ur Specific [place] <= 1.005, Urine Protein Negative, Urine Glucose (UA) Negative, Urine Ketones Negative, Urine Blood Negative, Urine Nitrate Negative, Urine Bilirubin Negative, Urine Urobilinogen 0.2, Ur Leukocyte Esterase Negative, Urine RBC Occasional, Urine WBC Occasional, Ur Squamous Epith Cells 5-10, Urine Bacteria 3+, Urine HCG, Qual Negative 05/26/25 00:00: Ur C. trach DNA (PCR) Negative, U N.gonorrhoeae DNA PCR Negative, T. vaginalis (PCR) Negative Assessment and Plan *Assessment and plan (1) Uncomplicated acute appendicitis: Status: Acute Category: Medical Code(s): K35.80 - Unspecified acute appendicitis Plan Plan to proceed with laparoscopic possible open appendectomy. Nature and details of procedure along with associated risks and expected outcome explained.
--- NOTE | 2025-05-26 07:56 | EXP.ANES.CKL ---
[facility] Disclaimer: The information contained in this section may have been updated after the patient was seen, as this information can be updated by other users. Medical History 37 weeks gestation of Irregular contractions Delivered by section Surgical History History of Family History (Updated 05/26/25 @ 01:54 by Jennifer Tavera APRN) Other Coronary artery disease No significant family history Social History Smoking Status: Current every day smoker alcohol intake: never substance use type: denies use current occupational status: unemployed Travel in the last 8 weeks?: None Have you lived/traveled outside US in past 30 days?: No Contact w/someone who lives/traveled outside US past 30 days?: No Exposure to someone with infectious disease in past 14 days?: No Do you have a fever (greater than 100.4 F or 38 C)?: No Have you tested positive for COVID-19?: No Exposed to someone with COVID-19 in past 14 days?: No Do you have a sore throat?: No Do you have a cough?: No Do you have any weakness?: No Do you have any diarrhea?: No Are you experiencing any unusual bleeding?: No Do you have any muscle aches/pain?: No Do you have any abdominal pain?: No Are you experiencing loss of taste or smell?: No [facility] Anesthesia Checklist Patient Identification Patient Identification: Arm Band Structural Data Admitted From: Home Planned Operative Procedure/s: Laparoscopic Appendectomy Consent for Planned Operative Procedure(s) Verified: Yes Verified Documents: Surgical Consent and History and Physical NPO Status Verified Time NPO: 00:00 Additional verifications Anesthesia Reactions: No Airway Assessment Mallampati Score:: Class II C-Spine Mobility Assessed: Yes TMJ Mobility Assessed: Yes Dentition: Good Dentition Neurological Assessment Level of Consciousness: Awake, Alert and Appropriate Anesthesia Plan Anesthesia Risk discussed: Yes Anesthesia Plan: Verified ASA Class: II Anesthesia Type: General
[2025-05-26] MEDS: AMPICILLIN SODIUM/SULBACTAM 3 GM in 0.9 % SODIUM CHLORIDE 100 ML IV ×2 (08:45→12:55)
[2025-05-26] MEDS: SODIUM CHLORIDE IRRIG SOLUTION 3,000 ML 200 ML IR (08:55)
[2025-05-26] MEDS: LIDOCAINE 1% 20ML MDV 20 ML (08:56)
--- NOTE | 2025-05-26 09:25 | P.OP_ITS ---
Date of procedure: 05/26/25 Pre-op Diagnosis:: Acute appendicitis Post-op Diagnosis:: Same Procedure performed:: Laparoscopic appendectomy Surgeon:: Roberto Carlos Smith MD SEWING MACHINE OPERATOR ZIPPER:: Loyd Qureshi Anesthesia: VITOR Estimated blood loss (mL): 10 Operative findings:: She had an acutely inflamed appendix mostly towards the proximal appendix and the appendix was corkscrew upon itself Operative note:: Consent was obtained patient was taken to the operating room. She was positioned in supine position. General anesthesia was induced via endotracheal tube. Fernandes catheter was placed. Abdomen was prepped and draped in the stand eduardo surgical fashion. Subumbilical skin incision was made and while performing abdominal wall left Veress needle was inserted. CO2 pneumoperitoneum was achieved to 15 mmHg. 12 mm optical trocar was inserted at the umbilicus. Laparoscopic surveillance was carried out. Tip of the appendix was identified in the right medial lower quadrant. She was positioned in Trendelenburg. 5 mm trocar was inserted in the left lower abdomen and 5 mm trocar was inserted in the right upper abdomen. 10 mm laparoscope was placed with 5 mm 30 degree laparoscope. The appendix was grasped. It was creating somewhat of a corkscrew effect upon itself with moderate inflammation proximally. There was no evidence of any necrosis or perforation. The mesoappendix was carefully divided with ultrasonic harmonic jose with care taken to coagulate the appendiceal artery. Dissection was carried down to the appendiceal base. The appendix was divided at its base with endoscopic MEAGAN linear cutting stapling device. The appendix was placed within an Endo Catch retrieval device and removed from the peritoneal cavity via the umbilical trocar site which required some stretching of the fascial incision for delivery. Staple line was inspected for integrity and hemostasis which was assured. Limited irrigation was performed until clear. Trocars were removed as CO2 pneumoperitoneum was evacuated. Fascia at the umbilicus was closed with a couple 0 Vicryl sutures. Local anesthetic was infiltrated. Skin incisions were closed with 4-0 Monocryl in a subcuticular fashion. Steri-Strips and dressings were applied. Condition: stable Disposition: PACU Complications:: None immediately apparent
--- NOTE | 2025-05-26 09:36 | P.PNANES_ITS ---
[facility] Anesthesia Record Part I Anesthesia Record I Intake, IV Amount: 700 Hydration: Adequate Estimated blood loss (mL): 10 Urine output (mL): 0 Blood Products used (#): none Blood Pressure: 119/67 SaO2: 95 Pulse Rate: 58 Airway Patency: Patent Respiratory Rate: 16 Temperature: 98.8 F Patient is:: Drowsy and Stable Stable to PACU at:: 09:35
--- NOTE | 2025-05-26 12:37 | P.DS_ITS ---
<Statement entered by Willis Osman MD - 05/26/25 16:23> Discussed case with nurse practitioner. Agree with the evaluation and care plan as documented. General Admission date:: 05/26/25 Discharge date: 05/26/25 HPI HPI HPI: Patient is a 25-year-old female who presented to the emergency department in the evening of 05/25/2025 after she developed right lower quadrant and suprapubic pain beginning around 7 AM on that day. She had taken Tylenol without relief. No other associated symptoms but stated pain was worse after eating. Evaluation in the emergency department revealed a white blood cell count of 11,900. CT scan revealed findings of uncomplicated acute appendicitis with a 1.5 cm appendix with multiple small appendicoliths. She was admitted for inpatient management and surgical consultation for management of acute appendicitis. Hospital Course Hospital Course Hospital Course: Ms. Schneider is a 25-year-old female who was admitted from the emergency department early this morning with acute appendicitis. She has a primary medical history of a . She was taken to surgery for a laparoscopic appendectomy. Procedure was performed without complication. Patient doing well postprocedure, tolerating p.o. diet, moderate pain relieved by pain medication. Discussed postprocedure restrictions with patient. Patient being discharged home with [place] 5/325 mg every 4 hours as needed for severe pain. Patient may take Tylenol or ibuprofen [id number] if not needing opioid pain medication. Patient will follow-up with Dr. Smith in 2 to 3 weeks, sooner if needed. Patient has remained hemodynamically stable. Patient did receive Unasyn preoperatively, WBC 11.9, no anemia, no electrolyte abnormalities, normal kidney function. Exam Data for Last 24 hours Vital signs and Labs for Last 24 Hours: Temp Pulse Resp BP Pulse Ox O2 Del Method 98 F 76 16 121/62 98 Room Air 05/26/25 11:45 05/26/25 12:15 05/26/25 12:15 05/26/25 12:15 05/26/25 12:15 05/26/25 12:15 Laboratory Results - last 24 hr 05/25/25 21:43: WBC 11.9 H, RBC 4.67, Hgb 12.2, Hct 38.7, MCV 82.9, MCH 26.1 L, MCHC 31.5 L, RDW 15.9, Plt Count 287, MPV 11.7 H, Neut % (Auto) 57.0, Lymph % (Auto) 34.3, [place] % (Auto) 6.4, Eos % (Auto) 0.9, Baso % (Auto) 0.8, Neut # (Auto) 6.8, Lymph # (Auto) 4.1, [place] # (Auto) 0.8, Eos # (Auto) 0.1, Baso # (Auto) 0.1, Sodium 138, Potassium 3.9, Chloride 101, Carbon Dioxide 28, Anion Gap 12.9, BUN 6 L, Creatinine 0.70, Estimated Creat Clear 132, Estimated GFR 102, Est GFR ( Amer) 123, Glucose 101 H, Calcium 8.6, Magnesium 2.0, Total Bilirubin 0.2, AST 28, ALT 17, Alkaline Phosphatase 90, Total Protein 7.6, Albumin 4.3, Globulin 3.3 H, Albumin/Globulin Ratio 1.3, Lipase 107 05/25/25 : Urine Color Yellow, Urine Appearance Clear, Urine pH 6.5, Ur Specific [place] <= 1.005, Urine Protein Negative, Urine Glucose (UA) Negative, Urine Ketones Negative, Urine Blood Negative, Urine Nitrate Negative, Urine Bilirubin Negative, Urine Urobilinogen 0.2, Ur Leukocyte Esterase Negative, Urine RBC Occasional, Urine WBC Occasional, Ur Squamous Epith Cells 5-10, Urine Bacteria 3+, Urine HCG, Qual Negative 05/26/25 00:00: Ur C. trach DNA (PCR) Negative, U N.gonorrhoeae DNA PCR Negative, T. vaginalis (PCR) Negative I & O for Last 24 hours: Intake & Output 05/23/25 05/24/25 05/25/25 05/26/25 23:59 23:59 23:59 23:59 Intake Total 1900 / 1900 Output Total 500 / 500 Balance 1400 / 1400 Weight 68.039 kg 61.779 kg Constitutional Constitutional: no acute distress, average body habitus and cooperative *Routine HEENT Exam Head: Present normocephalic Eye: Present EOMI and PERRL ENT: Present mucous membranes moist *Routine Neck Exam Neck: Present supple and full ROM; Absent lymphadenopathy *Routine Respiratory Exam Respiratory: Present CTA bilaterally and normal respiratory effort; Absent wheezes or crackles *Routine Cardiovascular Exam Cardiovascular: Present RRR; Absent murmur *Routine Abdominal Exam Abdominal: Present soft and normoactive bowel sounds; Absent tenderness or distended Comments: 3 times surgical sites, CDI *Routine Rectal Exam Patient deferred: visual exam *Routine Exam Patient deferred: external exam *Routine Extremities Exam Extremities: Present pulses intact and normal capillary refill; Absent cyanosis, clubbing or edema *Routine Skin Exam Skin: Present intact, dry and warm; Absent rash *Routine Neurological Exam Neurological: Present alert, oriented X3 and normal speech Results Data Completed and Pending Labs on day of discharge: Labs from last 24 hours 05/26/25 05/25/25 05/25/25 00:00 Unknown 21:43 WBC 11.9 H RBC 4.67 Hgb 12.2 Hct 38.7 MCV 82.9 MCH 26.1 L MCHC 31.5 L RDW 15.9 Plt Count 287 MPV 11.7 H Neut % (Auto) 57.0 Lymph % (Auto) 34.3 [place] % (Auto) 6.4 Eos % (Auto) 0.9 Baso % (Auto) 0.8 Neut # (Auto) 6.8 Lymph # (Auto) 4.1 [place] # (Auto) 0.8 Eos # (Auto) 0.1 Baso # (Auto) 0.1 Sodium 138 Potassium 3.9 Chloride 101 Carbon Dioxide 28 Anion Gap 12.9 BUN 6 L Creatinine 0.70 Estimated Creat Clear 132 Estimated GFR 102 Est GFR ( Amer) 123 Glucose 101 H Calcium 8.6 Magnesium 2.0 Total Bilirubin 0.2 AST 28 ALT 17 Alkaline Phosphatase 90 Total Protein 7.6 Albumin 4.3 Globulin 3.3 H Albumin/Globulin Ratio 1.3 Lipase 107 Urine Color Yellow Urine Appearance Clear Urine pH 6.5 Ur Specific [place] <= 1.005 Urine Protein Negative Urine Glucose (UA) Negative Urine Ketones Negative Urine Blood Negative Urine Nitrate Negative Urine Bilirubin Negative Urine Urobilinogen 0.2 Ur Leukocyte Esterase Negative Urine RBC Occasional Urine WBC Occasional Ur Squamous Epith Cells 5-10 Urine Bacteria 3+ Urine HCG, Qual Negative Ur C. trach DNA (PCR) Negative U N.gonorrhoeae DNA PCR Negative T. vaginalis (PCR) Negative DS: Diagnosis Discharge Diagnosis (1) Uncomplicated acute appendicitis: Status: Acute Code(s): K35.80 - Unspecified acute appendicitis (2) Status post laparoscopic appendectomy: Status: Acute Code(s): Z90.49 - Acquired absence of other specified parts of digestive tract Meds Home Medications and Allergies Home Medications ?Medication ?Instructions ?Recorded ?Confirmed ?Type hydrocodone 5 mg-acetaminophen 325 1 tab PO Q4HP PRN p ain (scale 05/26/ Rx mg tablet score 7-10) #17 tabs New Prescriptions to Start Prescriptions: hydrocodone-acetaminophen Irma Hernandez Allergies Allergy/AdvReac Type Severity Reaction Status Date / Time No Known Allergies Allergy Verified 02/03/24 14:37 Discharge Plan Disposition Patient Disposition: Home, Self-Care Condition: Good Follow up Plan Follow up with: Roberto Carlos Smith MD [Staff Physician, General Surgery] - Enter time for follow up Referral Note: 2-3 weeks Prescriptions/Medication Reconciliation: New hydrocodone-acetaminophen 5-325 mg tablet 1 tab PO Q4HP PRN (Reason: pain (scale score 7-10)) Qty: 17 0RF Discontinued acetaminophen 500 mg tablet 500 mg PO Q6H PRN (Reason: fever) Qty: 30 3RF ibuprofen 800 mg tablet 800 mg PO Q8H PRN (Reason: uterine bleeding) 7 Days Qty: 21 0RF Problem Reconciliation Problems Reviewed?: Yes Patient Discharge Instructions ACTIVITY: Continue current activity and No heavy lifting Additional Instructions: May remove dressing and shower in 48 hours. Leave steri-strips in place. Patient Instructions: DI for Appendicitis in Adults Print Language: Turkish Providers Primary Care Provider: Provider,Referral Admit Provider: Willis Osman Attending Provider: Willis Osman
[2025-05-26] MEDS: HYDROCODONE/APAP 5/325 MG TABLET 1 TAB PO (13:24)
[2025-05-26 14:56] LABS: Microscopic,Cath URINE MICROSCOPIC (MICROSCOPIC)
[2025-05-26 14:59] LABS: Appearance,Urine/Cath CLEAR (Clear); Bilirubin,Cath Negative (Negative); Blood, Urine/Cath Negative (Negative); Color,Urine/Cath YELLOW (Yellow); Glucose,Urine/Cath (UA) Negative (Negative); Ketones,Urine/Cath Negative (Negative); Leukocyte Esterase,Cath Negative (Negative); Nitrate,Cath Negative (Negative); PH,Urine/Cath 7.5 (5.0-8.5); Protein,Urine/Cath Negative (Negative); Specific Gravity, Urine/Cath 1.010 (1.005-1.030); Urobilinogen,Cath 0.2 EU/dl (0.2)
[2025-05-26 15:14] LABS: Bacteria,Urine/Cath 1+ /lpf; RBC,Urine/Cath Occasional # /hpf (0-3)
--- NOTE | 2025-05-27 07:25 | P.PNANES_ITS ---
[facility] Anesthesia Record Part II Anesthesia Record Part II Discharge Time: 10:05 Destination: Surgical Day Care (OP Surgery) PACU nurse assessment reviewed?: Yes Patient Condition:: Good Anesthesia Complications:: None Swallowing reflex intact?: Yes Airway Patency: Patent Cyanosis?: No Blood Pressure: 118/66 SaO2: 99 Respiratory Rate: 16 Pulse Rate: 72 Temperature: 98.4 F Mental Status: Alert & Oriented Pain level:: 0 Nausea and/or vomitting:: None Intake, IV Amount: 0 Hydration: Adequate
[2025-05-27 07:28] VITALS: BP 118/66; PULSE 72; RESP 16; TEMP 36.9; O2SAT 99
--- NOTE | 2025-05-27 10:02 | SW/DCPLANNER ---
Spoke with patient on the phone. Patient stated that she is doing good just a little sore. Patient stated that she is aware of her upcoming appointments. Patient stated that [facility] medicine to her room. Patient stated that she was wondering how she can get the gas out from under her ribs and stated that she needs to walk. Patient stated that she has no other concerns or questions at this time. Domenica Ludwig
== END 2025-05-26 14:30 | disposition home or self-care (01) ==
LOC: ER 21:32 → 2ND 05-26 00:04
PROVIDERS: Nurse Practitioner Family; Surgery; Admitting Provider Internal Medicine Adolescent Medicine; Emergency Provider Student in an Organized Health Care Education/Training Program; Visit Provider Internal Medicine Adolescent Medicine
PROC: 0DTJ4ZZ Resection of Appendix, Percutaneous Endoscopic Approach (ICD-10-PCS; CPT 44970; principal; 2025-05-26 11:25)
DX: K35.80 Unspecified acute appendicitis (principal); N83.201 Unspecified ovarian cyst, right side; Z90.49 Acquired absence of other specified parts of digestive tract
CPT/HCPCS: 44970; 51702; 74177; 80053; 81001; 81025; 83690; 83735; 85025; 87086; 87491; 87591; 87661; 99284; G0378; J0295; J1100; J1885; J2003; J2250; J2270; J2405; J2704; J2795; J3010; J7030; J7120; Q9967

== ENCOUNTER 2025-05-28 14:37 | Emergency (ER) | payer MEDICAID, SELFPAY ==
--- OUTSIDE RECORDS SUMMARY | 2014-04-27 10:30 | XMS_ITS | Continuity of Care Document ---
Author Organization [facility] ction Address [address] [place] [address] Phone Care Team Providers Care Machine Clothing Replacer Name Role Phone Chucky Fernandes MD Unavailable [...] AGE 12-17 [facility], [address] [place], [address], tel:[phone] [place] preventive exam (chief complaint) Routine or child health checkScreening for other and unspecified deficiency anemia 2013 [address]ena [address]. [address] [place] [address], [address] [place], [place] [address] , [place], [address], . tel:[phone] Family History Family Member Type Diagnosis Age At Onset No Information Immunizations Vaccine Date Status Comments HPV administered Source: New Imm unization Record Meningococcal MPSV4 administered Source: New Immunization Record Tdap administered Source: New Imm unization Record Varicella administered Source: New Imm unization Record Payers Payer name Insurance type Covered libertarian ID Authoriza tion(s) [facility] Med [facility] CI [id number] [facility] [id number] [facility] CI [id number] [facility] [id number] Social History Type Description Quantity Date Captured [...] Mental Status Date Cognitive Assessment Orientation - [place] ed to time, place, person, situation.
[2025-05-28] VITALS (7 sets, daily range): BP systolic 112–147; BP diastolic 67–83; PULSE 63–86; RESP 18–20; TEMP 36.5–37; O2SAT 97–100; BMI 27.4
--- NOTE | 2025-05-28 14:58 | ED_ITS ---
Discharge Plan Disposition Chief Complaint: Nausea/Vomiting/Diarrhea Prescriptions Prescriptions: No Action hydrocodone-acetaminophen 5-325 mg tablet 1 tab PO Q4HP PRN (Reason: pain (scale score 7-10)) Qty: 17 0RF Referrals Follow up/Referrals: Provider,MD Kaye [Primary Care Provider, Medical] - See instructions Instructions Patient Instructions: DI for Diarrhea and Traveler's Diarrhea in Adults, DI for Diarrhea and Traveler's Diarrhea in Children, DI for Nausea in Adults, DI for Nausea in Children Print Language Print Language: Cape Verdean Discharge ED Provider: Kym Aaron General Adult HPI <He Munoz MD - Last Filed: 05/28/25 15:17> General Chief complaint: Nausea/Vomiting/Diarrhea Stated complaint: Surgery 05/26/25- abd pain, vomiting Time Seen by Provider: 05/28/25 14:57 Related Data Previous Rx's ?Medication ?Instructions ?Recorded hydrocodone 5 mg-acetaminophen 325 1 tab PO Q4HP PRN p ain (scale 05/26/25 mg tablet score 7-10) #17 tabs Allergies Allergy/AdvReac Type Severity Reaction Status Date / Time No Known Allergies Allergy Verified 02/03/24 14:37 <Kym Aaron MD - Last Filed: > General Mode of Arrival: Wheelchair Source of Information: Patient Description of Symptoms (Recalled from ER Triage Doc. by RN): States she had her appendix removed this past week and then today approx 2-3 hours ago she started to throw up bile. Complaint of her pain medication causing her stomach to get upset. States she is able to keep food and water down. PFSH <He Munoz MD - Last Filed: 05/28/25 15:17> PFS Medical History 37 weeks gestation of Irregular contractions Delivered by section Surgical History History of Family History (Updated 05/26/25 @ 01:54 by Jennifer Tavera APRN) Other Coronary artery disease No significant family history Social History Smoking Status: Current every day smoker alcohol intake: never substance use type: denies use current occupational status: unemployed Travel in the last 8 weeks?: None Have you lived/traveled outside US in past 30 days?: No Contact w/someone who lives/traveled outside US past 30 days?: No Exposure to someone with infectious disease in past 14 days?: No Do you have a fever (greater than 100.4 F or 38 C)?: No Have you tested positive for COVID-19?: No Exposed to someone with COVID-19 in past 14 days?: No Do you have a sore throat?: No Do you have a cough?: No Do you have any weakness?: No Do you have any diarrhea?: No Are you experiencing any unusual bleeding?: No Do you have any muscle aches/pain?: No Do you have any abdominal pain?: No Are you experiencing loss of taste or smell?: No <Kym Aaron MD - Last Filed: > [facility] Disclaimer: The information contained in this section may have been updated after the patient was seen, as this information can be updated by other users. Other Medical History Have you received the Flu Vaccine for this season: No Have you received the Pneumonia Vaccine: No <He Munoz MD - Last Filed: 05/28/25 15:17> ROS Obtained: Yes Systems reviewed as appropriate & no additional complaints except as documented Physical Exam <He Munoz MD - Last Filed: 05/28/25 15:17> General General appearance: alert and in no apparent distress Comment: Appears uncomofortable Head Head exam: atraumatic Eye Eye exam: Present normal appearance ENT ENT exam: Present normal external ear exam Neck Neck exam: Present full ROM Chest Chest inspection: Present symmetric chest wall rise Respiratory Respiratory exam: Present normal lung sounds bilaterally; Absent respiratory distress, wheezes or stridor Cardiovascular Cardiovascular exam: Present regular rate and normal rhythm Abdominal Exam Abdominal exam: Present soft, tenderness (periumbilical tenderness with guarding), guarding and incision (Laparoscopic surgical scars appear to be hea ling well. No erythema or pus. There is some bruising around the periumbilical site); Absent distention or rigidity Extremities Exam Extremities exam: Present normal inspection Back Exam Back exam: Present normal inspection Neurological Exam Neurological exam: Present alert and oriented X3 Psychiatric Psychiatric exam: Present normal affect Skin Skin exam: Present warm and dry Medical Decision Making <He Munoz MD - Last Filed: 05/28/25 15:17> [place] Inquiry Pt receiving controlled substance: No Vital Signs: 05/28/25 14:46 Temperature 97.7 F Temperature Source Oral Pulse Rate [Radial] 83 Respiratory Rate 18 Blood Pressure [Right Arm] 147/81 H Blood Pressure Mean [Right Arm] 103 Blood Pressure Source [Right Arm] Automatic Cuff Blood Pressure Position [Right Arm] Sitting 02 Sat by Pulse Oximetry 100 Oxygen Delivery Method Room Air Orders (Tests/Meds): ED MEDICATIONS Generic Name Dose Route Start Last Admin Trade Name Freq PRN Reason Stop Dose Admin Lactated Ringer's 1,000 mls @ 999 mls/hr 05/28/25 15:04 Lactated Ringer's 1000 Ml Bag IV 05/28/25 16:04 .Q1H1M ONE Discontinued Medications Generic Name Dose Route Start Last Admin Trade Name Freq PRN Reason Stop Dose Admin Morphine Sulfate 4 mg 05/28/25 15:04 Morphine 4mg/Ml Syringe IV 05/28/25 15:05 ONCE ONE Ondansetron HCl 4 mg 05/28/25 15:04 Ondansetron 4mg/2ml Vial IV 05/28/25 15:05 ONCE ONE ORDERS Category Date Time Status CT abdomen pelvis w con Stat Cat Scan 05/28/25 15:04 Ordered CBC w/Auto Diff [Complete Blood Count Auto Diff] Stat Lab 05/28/25 15:04 Ordered CMP [Comprehensive Metabolic Panel] Stat Lab 05/28/25 15:04 Ordered Lactic Acid Stat Lab 05/28/25 15:04 Ordered Lipase Stat Lab 05/28/25 15:04 Ordered Serum [HCG Qualitative, Serum] Stat Lab 05/28/25 15:04 Ordered UA [Urinalysis and Microscopic] Stat Lab 05/28/25 15:04 Ordered <Kym Aaron MD - Last Filed: > Medical Records Screening: Per USPSTF and CDC recommendations, given the prevalence of disease in our region, it is our hospital?s policy to screen for HIV and viral Hepatitis for all patients aged 18 and over and those with ongoing risk factors. Vital Signs: 05/28/25 14:46 Temperature 97.7 F Temperature Source Oral Pulse Rate [Radial] 83 Respiratory Rate 18 Blood Pressure [Right Arm] 147/81 H Blood Pressure Mean [Right Arm] 103 Blood Pressure Source [Right Arm] Automatic Cuff Blood Pressure Position [Right Arm] Sitting 02 Sat by Pulse Oximetry 100 Oxygen Delivery Method Room Air Orders (Tests/Meds): ED MEDICATIONS Generic Name Dose Route Start Last Admin Trade Name Frelalit PRN Reason Stop Dose Admin Lactated Ringer's 1,000 mls @ 999 mls/hr 05/28/25 15:04 Lactated Ringer's 1000 Ml Bag IV 05/28/25 16:04 .Q1H1M ONE Discontinued Medications Generic Name Dose Route Start Last Admin Trade Name Frelalit PRN Reason Stop Dose Admin Morphine Sulfate 4 mg 05/28/25 15:04 Morphine 4mg/Ml Syringe IV 05/28/25 15:05 ONCE ONE Ondansetron HCl 4 mg 05/28/25 15:04 Ondansetron 4mg/2ml Vial IV 05/28/25 15:05 ONCE ONE ORDERS Category Date Time Status CT abdomen pelvis w con Stat Cat Scan 05/28/25 15:04 Ordered CBC w/Auto Diff [Complete Blood Count Auto Diff] Stat Lab 05/28/25 15:04 Ordered CMP [Comprehensive Metabolic Panel] Stat Lab 05/28/25 15:04 Ordered Lactic Acid Stat Lab 05/28/25 15:04 Ordered Lipase Stat Lab 05/28/25 15:04 Ordered Serum [HCG Qualitative, Serum] Stat Lab 05/28/25 15:04 Ordered UA [Urinalysis and Microscopic] Stat Lab 05/28/25 15:04 Ordered
--- NOTE | 2025-05-28 15:04 | CT_ITS ---
PROCEDURE INFORMATION: Exam: CT Abdomen And Pelvis With Contrast Exam date and time: 05/28/2025 4:01 PM Age: 25 years old Clinical indication: Nausea and vomiting and other: S/P appendectomy, periumbilical pain/n/v; Prior surgery; Surgery date: Post-operative (0-2 days); Surgery type: Appendectomy TECHNIQUE: Imaging protocol: Computed tomography of the abdomen and pelvis with contrast. Radiation optimization: All CT scans at this facility use at least one of these dose optimization techniques: automated exposure control; mA and/or kV adjustment per patient size (includes targeted exams where dose is matched to clinical indication); or iterative reconstruction. Contrast material: ISOVUE; Contrast volume: 75 ml; Contrast route: IV; COMPARISON: CT ABDOMEN PELVIS W CON 05/25/2025 10:36 PM FINDINGS: Lungs: Mild bibasilar atelectasis. Pleural spaces: Trace pleural effusions. Liver: Normal. No mass. Gallbladder and biliary ducts: Normal. No calcified stones. No ductal dilation. Pancreas: Normal. No ductal dilation. Spleen: Normal. No splenomegaly. Adrenal glands: Normal. No mass. Kidneys and ureters: Normal. No hydronephrosis. Stomach and bowel: Unremarkable. No obstruction. No mucosal thickening. Appendix: Appendectomy. Intraperitoneal space: Small intra-abdominal air. Small amount of fluid in the pelvic cul-de-sac. Vasculature: Unremarkable. No abdominal aortic aneurysm. Lymph nodes: Unremarkable. No enlarged lymph nodes. Urinary bladder: Unremarkable as visualized. Reproductive: Unremarkable as visualized. Bones/joints: Unremarkable. No acute fracture. Soft tissues: Unremarkable. IMPRESSION: 1. Small intra-abdominal air consistent with known recent surgery. 2. Small amount of fluid in the pelvic cul-de-sac, may be physiologic or related to known recent surgery.
--- OUTSIDE RECORDS SUMMARY | 2025-05-28 15:04 | XMS_ITS | Clinical Summary ---
Author Organization [facility] Address [address] [place] [address] Phone Care Team Providers Care Fence Machine Operator Name Role Phone Marisel Brooks APRN Primary Care Physician [phone] Conditions or Problems Problem Name Problem Code Onset Date Status Entry Date Provider Comment Standard Description Annotate Supervision high risk , third trimester 91234187 (SNOMED CT) 12/11 Active 12/11 Marisel Brooks APRN High risk Body mass index (BMI) 26.0-26.9; adult Z68.26 (ICD-10-CM ) 11/20 Active 11/23 Anju Huerta MD Body mass index [BMI] 26.0-26.9, adult Uterine size date discrepancy, antepartum, unspecified trimester 636815429 (SNOMED CT) 11/20 Active 11/20 Anju Huerta MD Uterine size for dates discrepancy Body mass index (BMI) 25.0-25.9; adult Z68.25 (ICD-10-CM ) 09/15 Correction 09/15 Anju Huerta MD Body mass index [BMI] 25.0-25.9, adult 15 weeks gestation of 3190137 (SNOMED CT) 09/15 Resolved 09/15 Anju Huerta MD Gestation period, 15 weeks 27 weeks gestation of 84509354 (SNOMED CT) 11/20 Inactive 11/20 Anju Huerta MD Gestation period, 27 weeks Body mass index (BMI) 25.0-25.9; adult Z68.25 (ICD-10-CM ) 09/15 Removed 09/15 Girish Galo MD Body mass index [BMI] 25.0-25.9, adult Supervision of other high risk , second trimester 03216915 (SNOMED CT) 09/15 Active 09/15 Girish Galo MD High risk Flu vaccine 05733639 (SNOMED CT) 08/13 Inactive 08/13 Girish Galo MD Administration of influenza vaccine 10 weeks gestation of 63531323 (SNOMED CT) 08/13 Resolved 08/13 Girish Galo MD Gestation period, 10 weeks Supervision of other high risk , first trimester 54532942 (SNOMED CT) 08/13 Resolved 08/13 Girish Galo MD High risk Body mass index (BMI) 25.0-25.9; adult Z68.25 (ICD-10-CM ) 09/14 Correction 09/14 Girish Galo MD Body mass index [BMI] 25.0-25.9, adult 15 weeks gestation of 0272149 (SNOMED CT) 09/15 Removed 09/15 Girish Galo MD Gestation period, 15 weeks Positive urine drug screen (marijuana) 105707219 (SNOMED CT) 08/13 Active 08/13 Girish Galo MD Screening for drug of abuse in urine specimen positive Supervision of other high risk , first trimester 75301626 (SNOMED CT) 08/13 Removed 08/13 Girish Galo MD High risk 10 weeks gestation of 05862629 (SNOMED CT) 08/13 Removed 08/13 Girish Galo MD Gestation period, 10 weeks Flu vaccine 78874849 (SNOMED CT) 08/13 Removed 08/13 Girish Galo MD Administration of influenza vaccine Yeast infection 3107310 (SNOMED CT) 09/17 Active 09/17 Marisel Brooks APRN Mycosis Bacterial vaginosis 130093916 (SNOMED CT) 09/17 Active 09/17 Marisel Brooks APRN Bacterial vaginosis Body mass index (BMI) 25.0-25.9; adult Z68.25 (ICD-10-CM ) 09/14 Removed 09/14 Marisel Brooks APRN Body mass index [BMI] 25.0-25.9, adult [facility]14342 [facility]) 09/14 Active 09/14 Marisel Brooks APRN Tobacco user Spotting complicating , first trimester 061517518 (SNOMED CT) 09/14 Active 09/14 Marisel Brooks APRN Spotting per vagina in Bacterial vaginosis 868280935 (SNOMED CT) 09/14 Active 09/14 Marisel Brooks APRN Bacterial vaginosis Cervical polyp 82984393 (SNOMED CT) 09/14 Active 09/14 Marisel Brooks APRN Polyp of cervix Vaginal itching 86802277 (SNOMED CT) 09/14 Active 09/14 Marisel Brooks APRN Pruritus of vagina History of labor 288251447 (SNOMED CT) 09/14 Active 09/14 Marisel Brooks APRN Past history of premature labor H/O: section 104849002 (SNOMED CT) 09/14 Active 09/14 Marisel Brooks APRN Past history of section Hx of preeclampsia 276632440 (SNOMED CT) 09/14 Active 09/14 Marisel Brooks APRN H/O: hypertension Supervision high risk , first trimester 71299414 (SNOMED CT) 09/14 Active 09/14 Marisel Brooks APRN High risk Medications Medication Instructions Start Date Stop Date Generic Name ND Provider Adult Low Dose Aspirin 81 mg tablet,delayed release (DR/EC) Take 1 tablet by mouth once a day aspirin 09986142716 Anju Huerta MD TERCONAZOLE 0.4 % CREA Insert 1 applicatorful into vagina once a day terconazole 86180593469 Marisel Brooks APRN vaginal cream applicator USE WITH terconazole X 7 NIGHTS vaginal cream applicator 64088958270 Marisel Brooks APRN METRONIDAZOLE 500 MG TABS Take 1 tablet by mouth twice a day do not drink alcohol with this medicaiton metronidazole 12543191903 Marisel Brooks APRN 28-0.8 MG TABS Take 1 tablet by mouth once a day [id number] fumarate-fa 07102496158 Marisel Brooks APRN Medications Administered No information [...] [Units/volume] in Serum or Plasma BETA-HCG QN 787234 m[iU]/mL H beta HCG , serum, quantitative [...] 6 gtt LABS ORDERED Urine Dip Auto 26246 Laboratory tests ordered SPEC GR URIN 1.015 [...] in Blood ABS NEUTROPH 7737 CELLS/UL 10*3/uL 9033-4659 N Neutrophils [#/volume] in Blood MPV 12.2 [...] Procedures Code Procedure Name Date Entry Date [facility]-[id number] Medication Reconciliation CPT-3074F Most recent systolic blood pressure <130 mm Hg CPT-3078F Most recent diastoli c blood pressure <80 mm Hg CPT-1159F Medication list docu mented in medical record CPT-1160F Review of all medica tions by a prescribing practitioner CPT-22533 Urine Dip Auto 17558 [id number] Current every day smoker 01/01/03 4004F Patient screened for tobacco use and received tobacco cessation intervention [id number] Smoking cessation education SCT-[id number] Giving encouragement to exercise [facility] 32901 T1 HIV 1/2 Ag & Ab 4 th gen -consent required [facility] 6399 T1 CBC with diff [facility] 72795 T1 RPR w/ reflex to titer & confirmation [facility] 57385 T1 GTT 3 Specimen () CPT-88035 Ultrasound Follow-up (Growth) 01/01/03 CPT-83456 Urine Dip Auto 81804 CPT-1159F Medication list docu mented in medical record CPT-3074F Most recent systolic blood pressure <130 mm Hg CPT-3078F Most recent diastoli c blood pressure <80 mm Hg SCT-[id number] Medication Reconciliation SCT-989106519 Current every day smoker 20 03/12/11 4004F Patient screened for tobacco use and received tobacco cessation intervention SCT-508946134 Smoking cessation education CL Cervical Length CPT-53411 Ultrasound >= 14 wks CPT-3074F Most recent systolic blood pressure <130 mm Hg CPT-3078F Most recent diastoli c blood pressure <80 mm Hg CPT-1159F Medication list docu mented in medical record SCT-[id number] Medication Reconciliation 4004F Patient screened for tobacco use and received tobacco cessation intervention CPT-05757 Urine Dip Auto 91207 CPT 91142 Ultrasound < 14 wks CPT-3074F Most recent systolic blood pressure <130 mm Hg CPT-3078F Most recent diastoli c blood pressure <80 mm Hg 4004F Patient screened for tobacco use and received tobacco cessation intervention SCT-[id number] Medication Reconciliation CPT-1159F Medication list docu mented in medical record 26334 Fluzone Quadrivalent CPT-90161 IMADM >18YR IM ROUTE 1ST VAC/TOXOID 08/13 CPT-83744 Urine Dip Auto 82449 [facility] 7943 T2 24 Hr Urine Creat inine Clearance (order total Protein & CR separately) Other [facility] Other - Patient Pay Other1 [facility] Other1 - Patient Pay [facility] 70013 T1 BMP [facility] 757 T2 24 Hr Urine Prote in & Creatinine w/ratio (order Clearance separately) CPT-3074F Most recent systolic blood pressure <130 mm Hg CPT-3078F Most recent diastoli c blood pressure <80 mm Hg CPT-1159F Medication list docu mented in medical record SCT-[id number] Medication Reconciliation SCT-998924659 Giving encouragement to exercise 4004F Patient screened for tobacco use and received tobacco cessation intervention SCT-105549652 Current every day smoker 02/08/04 SCT-816961089 Smoking cessation education CPT-1160F Review of all medica tions by a prescribing practitioner CPT-71331 Urine Dip Auto 08476 CPT-69229 Test 99745 [facility] 395 T1 Urine Culture [facility] 1715 T1 Protein:Creatinine Ratio, Urine 09/14 [facility] G1543 T1 Drug Screen STAND NINA-Urine w/o Confirmation [facility] 84600 T1 TSH reflex to free T4 202 10/21/03 [facility] 905 T1 Uric Acid [facility] 84500 T1 CMP [facility] 8472 T1 Hep C Ab [facility] 34407 T1 HIV 1/2 Ag & Ab 4 th gen -consent required [facility] 98194 T1 Panel (Obstetric Panel) 07/14 [facility] 8396 T1 HCG Serum Quantitative 02/08/04 [facility] 50820 T1 ThinPrep Pap w re flex HR HPV/GC/Chlamydia mRNA E6/E7 [facility] 18409 T2 BV Yeast Trich Culture (Affirm) 09/14 [...]
--- OUTSIDE RECORDS SUMMARY | 2025-05-28 15:05 | XMS_ITS | Clinical Summary ---
Author Organization [facility] Address [address] [place] [address] Phone Care Team Providers Care Shearing Machine Tender Name Role Phone Unavailable Primary Care Provider Unavailabl e Social History Tobacco Use Types Packs/Day Years Used Date Smoking Tobacco: Never Assessed Comments Unknown Sex and Gender Information Value Date Recorded Sex Assigned at Not on file Legal Sex Female 9:41 AM EDT Gender Identity Not on file Sexual Orientation Not on file Plan of Treatment Health Maintenance Due Date Last Done Comments DTap,Tdap,and Td (1 - Tdap) 2011 HPV (1 - 3-dose series) 2015 Pap Screening 2021 Influenza Vaccine (#1) 2025 RSV Vaccine (60+ or ) (1 - 1-dose 75+ series) 2075 Meningococcal B (MenB) Aged Out No lo nger eligible based on patient's age to complete this topic Meningococcal conjugate smith nt 4 (MCV4) Aged Out No longer eligible b ased on patient's age to complete this topic Pneumococcal 0-49 Aged Out No longer eligible based on patient's age to complete this topic RSV Immunization (<20 months) Aged Out No longer eligible based on patient's age to complete this topic Insurance [employer] ALL OTHERS NOT MEDICARE
--- OUTSIDE RECORDS SUMMARY | 2025-05-28 15:05 | XMS_ITS | Encounter Summary ---
Author Organization [facility] Address [facility] [place] [address] Phone Care Team Providers Care Clearing House Clerk Name Role Phone Unavailable Primary Care Provider Unavailabl e Reason for Referral * Radiology Services (Routine) - Closed Specialty Diagnoses / Procedures Referred By Alena galan Referred To Contact Procedures OB US STANDARD SECOND OR THIRD TRIMESTER HISTORICAL MED Referral ID Status Reason Start Date Expiration Date V isits Requested Visits Authorized [id number] Closed Specialty Services Required 01/14/2019 01/14/2020 150 150 Encounter Details Date Type Department Care Team (Late st Contact Info) Description 01/14/2019 SCAN [facility] [address] [place] [phone] Social History Tobacco Use Types Packs/Day Years Used Date Smoking Tobacco: Never Assessed Comments Unknown Sex and Gender Information Value Date Recorded Sex Assigned at Not on file Legal Sex Female 9:41 AM EDT Gender Identity Not on file Sexual Orientation Not on file documented as of this encounter Plan of Treatment Not on file documented as of this encounter Procedures Procedure Name Priority Date/Time Associated Diagnosis Comments OB US STANDARD SECOND OR THI RD TRIMESTER Routine 01/05/2019 documented in this encounter Results * OB US STANDARD SECOND OR THIRD TRIMESTER (01/05/2019) Anatomical Region Laterality Modality Abdomen, Pelvis Ultrasound us Historical Med OBUS Final Result documented in this encounter Visit Diagnoses Not on filedocumented in this encounter
--- OUTSIDE RECORDS SUMMARY | 2025-05-28 15:05 | XMS_ITS | Encounter Summary ---
Author Organization [facility] Address [facility] [place] [address] Phone Care Team Providers Care Math Teacher Name Role Phone Unavailable Primary Care Provider Unavailabl e Reason for Referral * Radiology Services (Routine) - Closed Specialty Diagnoses / Procedures Referred By Alena galan Referred To Contact Procedures OB US STANDARD SECOND OR THIRD TRIMESTER HISTORICAL MED Referral ID Status Reason Start Date Expiration Date V isits Requested Visits Authorized [id number] Closed Specialty Services Required 12/24/2018 12/24/2019 150 150 Encounter Details Date Type Department Care Team (Late st Contact Info) Description 12/24/2018 SCAN [facility] [address] [place] [phone] Social History Tobacco Use Types Packs/Day Years [...] STANDARD SECOND OR THI RD TRIMESTER Routine 12/15/2018 documented in this encounter Results * OB US STANDARD SECOND OR THIRD TRIMESTER (12/15/2018) Anatomical Region Laterality Modality Abdomen, Pelvis Ultrasound us Historical Med OBUS Final Result documented in this encounter Visit Diagnoses Not on filedocumented in this encounter
--- NOTE | 2025-05-28 15:06 | ED_ITS ---
<Statement entered by Kym Aaron MD - 05/29/25 14:27> I was consulted by the HEATHER, and we discussed the complexity of the problems being addressed. I approved the treatment and management plan for this patient's care in the emergency department, thus performing a substantive portion of the medical decision making. Kym Aaron MD, HEBER, FACEP Discharge Plan Disposition Patient Disposition: Home, Self-Care Prescriptions Prescriptions: New ondansetron 4 mg tablet,disintegrating 4 mg PO Q6H PRN (Reason: nausea and vomiting) Qty: 16 0RF No Action hydrocodone-acetaminophen 5-325 mg tablet 1 tab PO Q4HP PRN (Reason: pain (scale score 7-10)) Qty: 17 0RF Referrals Follow up/Referrals: Provider,Referral, [Primary Care Provider, Medical] - See instructions Activity Restrictions/Add. Instructions Additional Instructions/Restrictions: You are being prescribed Zofran to help with nausea and vomiting. Take this as prescribed. I encourage you to take ibuprofen to help with your pain and to use the hydrocodone?acetaminophen as prescribed for severe pain if needed. Stay hydrated drinking plenty of fluids, including water, sugar-free Gatorade and Pedialyte. Follow-up with your surgery team on Friday to discuss your follow-up appointment and if you are continuing to have symptoms. If you develop any new or worsening symptoms, or if you become concerned for your help for any reason, return to the emergency department for evaluation. Clinical Impressions Clinical Impression: Acute postoperative abdominal pain, Nausea & vomiting Instructions Patient Instructions: DI for Diarrhea and Traveler's Diarrhea in Adults, DI for Diarrhea and Traveler's Diarrhea in Children, DI for Nausea in Adults, DI for Nausea in Children Print Language Print Language: Wolof Discharge ED Provider: He Munoz General Adult HPI General Chief complaint: Nausea/Vomiting/Diarrhea Stated complaint: Surgery 05/26/25- abd pain, vomiting Time Seen by Provider: 05/28/25 14:57 Mode of Arrival: Wheelchair Source of Information: Patient Description of Symptoms (Recalled from ER Triage Doc. by RN): States she had her appendix removed this past week and then today approx 2-3 hours ago she started to throw up bile. Complaint of her pain medication causing her stomach to get upset. States she is able to keep food and water down. History of Present Illness HPI narrative: Nohemy Schneider is a 25-year-old female status post laparoscopic appendectomy 2 days ago on 05/26/2025 who presents to the Emergency Department for abdominal pain, nausea and vomiting. Patient states that she was prescribed hydrocodone/acetaminophen and has been taking it approximately every 4 hours, however when she takes it, she vomits, starting today. She denies any fevers. She denies any dysuria or hematuria. She states that she has been having bowel movements since her surgery and denies any diarrhea or bloody stools. She denies any abdominal swelling. Related Data Previous Rx's ?Medication ?Instructions ?Recorded hydrocodone 5 mg-acetaminophen 325 1 tab PO Q4HP PRN p ain (scale 05/26/25 mg tablet score 7-10) #17 tabs ondansetron 4 mg disintegrating 4 mg PO Q6H PRN nausea and 05/28/25 tablet vomiting #16 tabs Allergies Allergy/AdvReac Type Severity Reaction Status Date / Time No Known Allergies Allergy Verified 02/03/24 14:37 [facility] Disclaimer: The information contained in this section may have been updated after the patient was seen, as this information can be updated by other users. Medical History 37 weeks gestation of Irregular contractions Delivered by section Surgical History History of Family History (Updated 05/26/25 @ 01:54 by Jennifer Tavera APRN) Other Coronary artery disease No significant family history Social History Smoking Status: Current every day smoker alcohol intake: never substance use type: denies use current occupational status: unemployed Travel in the last 8 weeks?: None Have you lived/traveled outside [place] in past 30 days?: No Contact w/someone who lives/traveled outside [place] past 30 days?: No Exposure to someone with infectious disease in past 14 days?: No Do you have a fever (greater than 100.4 F or 38 C)?: No Have you tested positive for COVID-19?: No Exposed to someone with COVID-19 in past 14 days?: No Do you have a sore throat?: No Do you have a cough?: No Do you have any weakness?: No Do you have any diarrhea?: No Are you experiencing any unusual bleeding?: No Do you have any muscle aches/pain?: No Do you have any abdominal pain?: No Are you experiencing loss of taste or smell?: No Other Medical History Have you received the Flu Vaccine for this season: No Have you received the Pneumonia Vaccine: No ROS Obtained: Yes Systems reviewed as appropriate & no additional complaints except as documented Physical Exam General General appearance: alert and in no apparent distress Head Head exam: atraumatic Eye Eye exam: Present normal appearance ENT ENT exam: Present normal external ear exam Neck Neck exam: Present full ROM Chest Chest inspection: Present symmetric chest wall rise Respiratory Respiratory exam: Present normal lung sounds bilaterally; Absent respiratory distress Cardiovascular Cardiovascular exam: Present regular rate and normal rhythm Abdominal Exam Abdominal exam: Present soft, tenderness (Periumbilical with mild guarding), guarding and incision (Healing, no drainage or erythema or swelling); Absent rigidity Extremities Exam Extremities exam: Present normal inspection Back Exam Back exam: Present normal inspection Neurological Exam Neurological exam: Present alert and oriented X3 Psychiatric Psychiatric exam: Present normal affect Skin Skin exam: Present warm and dry Medical Decision Making Medical Records Screening: Per USPSTF and CDC recommendations, given the prevalence of disease in our region, it is our hospital?s policy to screen for HIV and viral Hepatitis for all patients aged 18 and over and those with ongoing risk factors. [place] Inquiry Pt receiving controlled substance: No Vital Signs: 05/28/25 14:42 05/28/25 14:46 05/28/25 15:00 Temperature 97.7 F Temperature Source Oral Pulse Rate 86 75 Pulse Rate [Radial] 83 Respiratory Rate 18 Blood Pressure 147/81 H 137/83 Blood Pressure [Right Arm] 147/81 H Blood Pressure Mean [Right Arm] 103 Blood Pressure Source [Right Arm] Automatic Cuff Blood Pressure Position [Right Arm] Sitting 02 Sat by Pulse Oximetry 99 100 100 Oxygen Delivery Method Room Air Room Air 05/28/25 15:30 05/28/25 16:28 05/28/25 17:00 Temperature Temperature Source Pulse Rate 75 67 63 Pulse Rate [Radial] Respiratory Rate Blood Pressure 135/78 120/74 112/67 Blood Pressure [Right Arm] Blood Pressure Mean [Right Arm] Blood Pressure Source [Right Arm] Blood Pressure Position [Right Arm] 02 Sat by Pulse Oximetry 100 97 97 Oxygen Delivery Method Room Air Room Air Room Air Lab Data Lab Results 05/28/25 15:19: WBC 12.6 H, RBC 4.70, Hgb 12.7, Hct 38.7, MCV 82.3, MCH 27.0, MCHC 32.8, RDW 15.9, Plt Count 212 D, MPV 12.0 H, Neut % (Auto) 77.7, Lymph % (Auto) 16.6, Angelina % (Auto) 4.7, Eos % (Auto) 0.5, Baso % (Auto) 0.2, Neut # (Auto) 9.8 H, Lymph # (Auto) 2.1, Angelina # (Auto) 0.6, Eos # (Auto) 0.1, Baso # (Auto) 0.0, Sodium 135 L, Potassium 3.6, Chloride 102, Carbon Dioxide 28, Anion Gap 8.6, BUN 8 D, Creatinine 0.50 L D, Estimated Creat Clear 185, Estimated GFR 150, Est GFR ( Amer) 182 D, Glucose 79, Lactate 0.9, Calcium 8.2 L, Total Bilirubin 0.3, AST 30, ALT 22 D, Alkaline Phosphatase 62, Total Protein 6.2 L, Albumin 3.5, Globulin 2.7, Albumin/Globulin Ratio 1.3, Lipase 40, Serum HCG, Qual Negative 05/28/25 16:08: Urine Color Yellow, Urine Appearance Clear, Urine pH 7.5, Ur Specific [place] 1.015, Urine Protein Negative, Urine Glucose (UA) Negative, Urine Ketones Negative, Urine Blood Negative, Urine Nitrate Negative, Urine Bilirubin Negative, Urine Urobilinogen 0.2, Ur Leukocyte Esterase Negative, Urine RBC None, Urine WBC None, Ur Squamous Epith Cells 20-50, Urine Bacteria Trace 05/28/25 15:19 05/28/25 15:19 Orders (Tests/Meds): ED MEDICATIONS Generic Name Dose Route Start Last Admin Trade Name Freq PRN Reason Stop Dose Admin Sodium Chloride 10 ml 05/28/25 16:00 05/28/25 16:00 Sodium Chloride 0.9% 10ml Syr (Rad Only) IV 06/27/25 15:59 10 ml NEEDED PRN Administration Maintain IV Site Discontinued Medications Generic Name Dose Route Start Last Admin Trade Name Freq PRN Reason Stop Dose Admin Lactated Ringer's 1,000 mls @ 999 mls/hr 05/28/25 15:04 05/28/25 17:15 Lactated Ringer's 1000 Ml Bag IV 05/28/25 16:04 Infused .Q1H1M ONE Infusion Iopamidol 75 ml 05/28/25 16:00 05/28/25 16:00 Iopamidol-370 (76%);100ml Bottle IV 05/28/25 16:01 75 ml ONCE ONE Administration Morphine Sulfate 4 mg 05/28/25 15:04 05/28/25 15:27 Morphine 4mg/Ml Syringe IV 05/28/25 15:05 4 mg ONCE ONE Administration Ondansetron HCl 4 mg 05/28/25 15:04 05/28/25 15:27 Ondansetron 4mg/2ml Vial IV 05/28/25 15:05 4 mg ONCE ONE Administration ORDERS Category Date Time Status CT abdomen pelvis w con Stat Cat Scan 05/28/25 15:04 Completed CBC w/Auto Diff [Complete Blood Count Auto Diff] Stat Lab 05/28/25 15:19 Completed CMP [Comprehensive Metabolic Panel] Stat Lab 05/28/25 15:19 Completed Lactic Acid Stat Lab 05/28/25 15:19 Completed Lipase Stat Lab 05/28/25 15:19 Completed Serum [HCG Qualitative, Serum] Stat Lab 05/28/25 15:19 Completed UA [Urinalysis and Microscopic] Stat Lab 05/28/25 16:08 Completed Medical Decision Narrative: Nohemy Schneider is a 25-year-old female status post laparoscopic appendectomy 2 days ago on 05/26/2025 who presents to the Emergency Department for abdominal pain, nausea and vomiting. Patient states that she was prescribed hydrocodone/acetaminophen and has been taking it approximately every 4 hours, however when she takes it, she vomits, starting today. She denies any fevers. She denies any dysuria or hematuria. She states that she has been having bowel movements since her surgery and denies any diarrhea or bloody stools. She denies any abdominal swelling. On arrival, patient is mildly hypertensive blood pressure 147/81, afebrile temperature 97.7 ?F, oxygen saturation 100% on room air. Breathing comfortably at this time. She does appear uncomfortable but nontoxic. Abdomen is nondistended and nonperitoneal take. She has some tenderness in the periumbilical region with guarding in this area. Laparoscopic surgical scars appear to be healing and intact with no pus or erythema. There is bruising around the periumbilical site. Differential diagnosis includes, but is not limited to: Postoperative pain, seroma early abscess//hematoma, hollow viscus injury, urinary tract infection, dehydration, electrolyte derangement, among others. The most morbid conditions were considered and workup was based on these. Workup in the emergency department included: A CT abdomen pelvis IV contrast, lactic acid, CBC with differential, CMP, urinalysis, serum test. Patient was treated with 1 L lactated ringer, 4 mg of IV Zofran, 4 mg of IV morphine. Patient's workup showed mild leukocytosis of 12.6 but no neutrophilia. No anemia. CMP with mild hyponatremia at 135 but otherwise unremarkable nonactionable. No BRAEDEN. Liver enzymes within normal limits. Bilirubin within normal limits. Lactate normal at 0.9. Negative test. Urinalysis without evidence of infection. Lipase normal at 40. CT imaging was interpreted by me personally. There is a mild amount of intra- abdominal fluid and gas consistent with recent abdominal surgery but no acute findings or circumscribed/rim-enhancing fluid collections. See radiology report for details On reassessment, patient report improvement in her symptoms. She has not had any additional vomiting. I do feel that her pain is likely postoperative in nature and will improve over time. Will prescribe patient Zofran to take at home and encouraged her to take ibuprofen to help with pain and to use the hydrocodone?Tylenol as needed for severe pain Into continue hydrating. Return precautions were given. All questions were answered. She demonstrated understanding and was in agreement this plan. She was then discharged from the emergency department in stable condition. Critical Care Critical Care Time Critical Care Time: No
[2025-05-28] MEDS: LACTATED RINGERS 1000ML 1,000 ML 999 ML IV (15:26)
[2025-05-28] MEDS: MORPHINE 4MG/ML SYRINGE 4 MG IV (15:27)
[2025-05-28] MEDS: ONDANSETRON 4MG/2ML VIAL 4 MG IV (15:27)
[2025-05-28 15:33] LABS: Hematocrit 38.7 % (37.0-47.0); Hemoglobin 12.7 g/dL (12.2-16.2); Immature Granulocytes % 0.3 %; Mean Corpuscular HGB Conc 32.8 g/dL (31.8-35.4); Mean Corpuscular Hemoglobin 27.0 pg (27.0-31.2); Mean Corpuscular Volume 82.3 fl (81-99); Nucleated Red Blood Cells % 0 %; Platelet Count 212 K/mm3 (142-424); Red Blood Count 4.70 M/mm3 (4.20-5.40); Red Cell Distribution Width-SD 48.2 fL; White Blood Count 12.6 K/mm3 (4.8-10.8)
[2025-05-28 15:47] LABS: HCG Qualitative, Serum Negative (Negative)
[2025-05-28 15:54] LABS: Albumin Level 3.5 g/dl (3.5-5.0); Chloride 102 mmol/L (98-107); Potassium 3.6 mmoL/L (3.5-5.1); Sodium 135 mmol/L (136-145)
[2025-05-28 15:56] LABS: Blood Urea Nitrogen 8 mg/dl (7-17); Creatinine Clearance Estimated 185 mL/min (50-200); Creatinine,Serum 0.50 mg/dl (0.52-1.04); Estimated Glomerular Filt Rate 150 ml/min (>60); GFR (African American) 182 ML/MIN (>60)
[2025-05-28 15:57] LABS: Alanine Aminotransferase 22 U/L (12-78); Albumin/Globulin Ratio 1.3 (1.1-1.8); Alkaline Phosphatase 62 U/L (38-126); Anion Gap 8.6 mEq/L (5-15); Aspartate Amino Transferase 30 U/L (14-36); Bilirubin,Total 0.3 mg/dl (0.2-1.3); Calcium 8.2 mg/dl (8.4-10.2); Carbon Dioxide 28 mmol/L (22.0-30.0); Globulin 2.7 g/dL (1.3-3.2); Glucose 79 mg/dl (74-100); Lipase 40 U/L (23-300); Total Protein,Serum 6.2 g/dl (6.3-8.2)
[2025-05-28] MEDS: SODIUM CHLORIDE 0.9% 10ML SYR (RAD ONLY) 10 ML IV (16:00)
[2025-05-28] MEDS: IOPAMIDOL-370 (76%);100ML BOTTLE 75 ML IV (16:00)
[2025-05-28 16:14] LABS: Bilirubin,Urine Negative (Negative); Color,Urine YELLOW (Yellow); Glucose,Urine (UA) Negative (Negative); Ketones,Urine Negative (Negative); Leukocyte Esterase,Urine Negative (Negative); Microscopic, Urine URINE MICROSCOPIC (MICROSCOPIC); PH,Urine 7.5 (5.0-8.5); Protein,Urine Negative (Negative); Specific Gravity, Urine 1.015 (1.005-1.030); Urobilinogen,Urine 0.2 EU/dl (0.2)
[2025-05-28 16:27] LABS: Bacteria,Urine Trace /lpf; Squamous Epithelial Cell,Urine 20-50 #/hpf (0-5)
== END 2025-05-28 17:59 | disposition home or self-care (01) ==
PROVIDERS: Emergency Provider Student in an Organized Health Care Education/Training Program
DX: R10.33 Periumbilical pain (principal); G89.18 Other acute postprocedural pain; R11.2 Nausea with vomiting, unspecified; Z90.49 Acquired absence of other specified parts of digestive tract; F17.210 Nicotine dependence, cigarettes, uncomplicated
CPT/HCPCS: 74177; 80053; 81001; 83605; 83690; 84703; 85025; 96361; 96374; 96375; 99285; J2270; J2405; J7120; Q9967